=== PATIENT | female | born 1945 | race Caucasian/White ===

== ENCOUNTER 2019-11-10 10:44 | Emergency (ER) | payer MEDICARE, OTHER ==
[~2019-11-10] VITALS: Ht 162.5 cm; Wt 45.9 kg
[2019-11-10] MEDS ORDERED: ACETAMINOPHEN 325 MG TABLET PO ONE (11:15)
[2019-11-10] MEDS ORDERED: ASPIRIN 325 MG (5 GR) TABLET PO ONE (11:15)
[2019-11-10 11:22] LABS: WHITE BLOOD COUNT 18.4 10^3/uL (4.3-11.0)
[2019-11-10 11:23] LABS: BASOPHILS % (AUTO) 0 % (0-10); EOSINOPHILS # (AUTO) 0.1 10^3/uL (0.0-0.3); EOSINOPHILS % (AUTO) 1 % (0-10); HEMATOCRIT 39 % (35-52); HEMOGLOBIN 12.4 G/DL (11.5-16.0); LYMPHOCYTES # (AUTO) 1.9 X 10^3 (1.0-4.0); LYMPHOCYTES % (AUTO) 10 % (12-44); MEAN CORPUSCULAR HEMOGLOBIN 29 PG (25-34); MEAN CORPUSCULAR HGB CONC 32 G/DL (32-36); MEAN CORPUSCULAR VOLUME 92 FL (80-99); MEAN PLATELET VOLUME 10.3 FL (7.4-10.4); MONOCYTES # (AUTO) 1.4 X 10^3 (0.0-1.0); MONOCYTES % (AUTO) 8 % (0-12); NEUTROPHILS # (AUTO) 14.8 X 10^3 (1.8-7.8); NEUTROPHILS % (AUTO) 91 % (42-75); PLATELET COUNT 424 10^3/uL (130-400); RED CELL DISTRIBUTION WIDTH 13.2 % (10.0-14.5)
[2019-11-10] MEDS ORDERED: EPINEPHrine INJECTION 1 MG/ML AMP ONE (11:24)
[2019-11-10] MEDS ORDERED: DEXAMETHASONE 10 MG/ML (DECADRON) 1 ML VIAL ONE (11:26)
[2019-11-10 11:31] LABS: PROTHROMBIN TIME PATIENT 13.3 SEC (12.2-14.7)
[2019-11-10 12:01] LABS: CHLORIDE 100 MMOL/L (98-107); POTASSIUM 3.7 MMOL/L (3.6-5.0); SODIUM 141 MMOL/L (135-145)
[2019-11-10 12:02] LABS: ALANINE AMINOTRANSFERASE 12 U/L (0-55); ALBUMIN 4.1 GM/DL (3.2-4.5); ALKALINE PHOSPHATASE 97 U/L (40-136); BILIRUBIN,TOTAL 0.2 MG/DL (0.1-1.0); BUN/CREATININE RATIO 34; CALCIUM 9.6 MG/DL (8.5-10.1); CARBON DIOXIDE 28 MMOL/L (21-32); CREATININE SERUM 0.38 MG/DL (0.60-1.30); GFR ESTIMATED > 60; GLUCOSE 112 MG/DL (70-105); TOTAL PROTEIN 7.3 GM/DL (6.4-8.2)
[2019-11-10] MEDS ORDERED: HOLD METFORMIN - RECEIVED CONTRAST 20 ML VIAL IV SCH (12:15)
[2019-11-10] MEDS ORDERED: NS 100 ML (IVPB) BAG IV ONE (12:15)
[2019-11-10] MEDS ORDERED: CATHETER FLUSH 10 ML SYR IV PRN (12:15)
[2019-11-10] MEDS ORDERED: IOHEXOL 350 MG/ML 150 ML (OMNIPAQUE 350) VIAL IV ONE (12:15)
[2019-11-10 12:18] LABS: BAND NEUTROPHILS 2 %; BASOPHILS % (MANUAL) 0 %; EOSINOPHILS % (MANUAL) 2 %; LYMPHOCYTES % (MANUAL) 12 %; MONOCYTES % (MANUAL) 9 %; NEUTROPHILS % (MANUAL) 75 %; RBC MORPH NORMAL
--- NOTE | 2019-11-10 12:46 | Diagnostic Imaging Report ---
PROCEDURE: CT angiography of the chest with contrast. TECHNIQUE: Multiple contiguous axial images were obtained through the chest after uneventful bolus administration of intravenous contrast. 3D reconstructed CTA MIP acquisitions were also performed. Auto Exposure Controls were utilized during the CT exam to meet ALARA standards for radiation dose reduction. INDICATION: Chest pain and shortness of breath. COMPARISON: No prior studies are available for comparison. FINDINGS: Evaluation of the pulmonary arterial system is without evidence of thromboembolism. No filling defects are seen within central, lobar, or segmental branches. Thoracic aorta is normal in caliber. No dissection is seen. No pericardial or pleural fluid is identified. Significant emphysematous changes in both lungs are noted. There is an area of parenchymal consolidation in the right middle lobe suggestive of pneumonia. No other parenchymal infiltrates or masses are seen. The upper abdomen is unremarkable. IMPRESSION: 1. No evidence of pulmonary embolism or thoracic aortic dissection. 2. Right middle lobe consolidation suggestive of pneumonia. Follow-up after course of therapy is recommended to confirm clearing. Dictated by: Dictated on workstation # [id number]
[2019-11-10] MEDS ORDERED: fentaNYL INJECTION 100 MCG/2 ML AMP IVP PRN (14:00)
[2019-11-10] MEDS ORDERED: LEVOFLOXACIN 750 MG/150 ML IV 150 ML IV ONE (14:00)
--- NOTE | 2019-11-10 14:39 | ED Chest Pain ---
General Chief Complaint: Chest Pain Stated Complaint: CHEST PAIN Nursing Triage Note: Patient reports she has COPD, states she had sudden onset of right chest pain and shortness of breath just after a breathing treatment this morning. Nursing Sepsis Screen: Possible Severe Sepsis Risk History of Present Illness Date Seen by Provider: Nov 10, 2019 Time Seen by Provider: 11:15 Initial Comments The patient is a 74-year-old female with a history of severe COPD with chronic respiratory failure on 2 L of nasal cannula oxygen as needed at nighttime. She presents for evaluation of sudden onset of sharp pleuritic right inferior chest discomfort which is rather severe, all with onset about 1.5 hours prior to arrival. Patient states she awoke in her normal state of health and did not notice any worsening of her chronic productive cough. Discomfort is described as sharp and stabbing and nonradiating and without exacerbating factors aside from deep breathing. Associated nausea. Associated mild shortness of breath and the patient is noted to be on 3 L of oxygen to maintain saturations here. No assoc iated fevers, vomiting, flank pain, back pain, abdominal pain, dysuria or hematuria, changes in bowel habits. No recent immobilization, hemoptysis, calf pain or swelling, personal or family history of venous thrombolic disease, systemic steroid use recently although the patient does take an inhaled steroid at baseline for control of her COPD. Allergies and Home Medications Allergies Coded Allergies: No Known Drug Allergies (Unverified , 11/10/19) Patient Home Medication List Home Medication List Reviewed: Yes Review of Systems Review of Systems Constitutional: see HPI All Other Systems Reviewed Negative Unless Noted: Yes (Negative excepted noted.) Past Sswxvsk-Amqfew-Svgaok Hx Past Med/Social Hx: Reviewed Nursing Past Med/Soc Hx Patient Social History Recent Foreign Travel: No Contact w/Someone Who Travel: No Recent Infectious Disease Expo: No Family Medical History Reviewed Nursing Family Hx Physical Exam Vital Signs Vital Signs - First Documented 11/10/19 10:49 Temp 37.4 Pulse 113 Resp 29 B/P (MAP) 161/112 (128) Pulse Ox 96 O2 Delivery Room Air Capillary Refill : Less Than 3 Seconds Height, Weight, BMI Height: '" Weight: lbs. oz. kg; 17.00 BMI Method: General Appearance: No Apparent Distress Other comments This is a 74-year-old female appearing nontoxic and in no acute distress. Head is normocephalic and atraumatic. Neck is supple and nontender. Oropharynx is moist. Lungs are clear to auscultation in all stations. There is normal S1 and S2 without rubs or gallops and capillary refill is appropriate, less than 2 seconds globally. Abdomen is soft, nontender and nondistended. Skin is warm and dry without cyanosis, clubbing or edema. Psychiatrically, the patient demonstrates appropriate mood and affect and is alert. Bilateral lower extremities are neurovascularly intact distally and there is no calf or BLE pain or swelling and no erythema or other acute abnormality noted to the legs. Progress/Results/Core Measures Results/Orders Lab Results Laboratory Tests Test 11/10/19 11:05 Range/Units White Blood Count 18.4 H 4.3-11.0 10^3/uL Red Blood Count 4.28 L 4.35-5.85 10^6/uL Hemoglobin 12.4 11.5-16.0 G/DL Hematocrit 39 35-52 % Mean Corpuscular Volume 92 80-99 FL Mean Corpuscular Hemoglobin 29 25-34 PG Mean Corpuscular Hemoglobin Concent 32 32-36 G/DL Red Cell Distribution Width 13.2 10.0-14.5 % Platelet Count 424 H 130-400 10^3/uL Mean Platelet Volume 10.3 7.4-10.4 FL Neutrophils (%) (Auto) 91 H 42-75 % Lymphocytes (%) (Auto) 10 L 12-44 % Monocytes (%) (Auto) 8 0-12 % Eosinophils (%) (Auto) 1 0-10 % Basophils (%) (Auto) 0 0-10 % Neutrophils # (Auto) 14.8 H 1.8-7.8 X 10^3 Lymphocytes # (Auto) 1.9 1.0-4.0 X 10^3 Monocytes # (Auto) 1.4 H 0.0-1.0 X 10^3 Eosinophils # (Auto) 0.1 0.0-0.3 10^3/uL Basophils # (Auto) 0.0 0.0-0.1 10^3/uL Neutrophils % (Manual) 75 % Lymphocytes % (Manual) 12 % Monocytes % (Manual) 9 % Eosinophils % (Manual) 2 % Basophils % (Manual) 0 % Band Neutrophils 2 % Blood Morphology Comment NORMAL Prothrombin Time 13.3 12.2-14.7 SEC INR Comment 1.0 0.8-1.4 Activated Partial Thromboplast Time 29 24-35 SEC Sodium Level 141 135-145 MMOL/L Potassium Level 3.7 3.6-5.0 MMOL/L Chloride Level 100 98-107 MMOL/L Carbon Dioxide Level 28 21-32 MMOL/L Anion Gap 13 5-14 MMOL/L Blood Urea Nitrogen 13 7-18 MG/DL Creatinine 0.38 L 0.60-1.30 MG/DL Estimat Glomerular Filtration Rate > 60 BUN/Creatinine Ratio 34 Glucose Level 112 H 70-105 MG/DL Calcium Level 9.6 8.5-10.1 MG/DL Corrected Calcium 9.5 8.5-10.1 MG/DL Total Bilirubin 0.2 0.1-1.0 MG/DL Aspartate Amino Transf (AST/SGOT) 19 5-34 U/L Alanine Aminotransferase (ALT/SGPT) 12 0-55 U/L Alkaline Phosphatase 97 40-136 U/L Troponin I < 0.30 <0.30 NG/ML Pro-B-Type Natriuretic Peptide 452.4 H <75.0 PG/ML Total Protein 7.3 6.4-8.2 GM/DL Albumin 4.1 3.2-4.5 GM/DL My Orders Orders - SHANNON TRACY MD Cbc With Automated Diff (11/10/19 11:04) Comprehensive Metabolic Panel (11/10/19 11:04) Troponin I Fs (11/10/19 11:04) Ekg Tracing (11/10/19 11:04) Probnp Fs (11/10/19 11:04) Protime With Inr (11/10/19 11:04) Partial Thromboplastin Time (11/10/19 11:04) Ct Angio Chest W (11/10/19 11:04) Aspirin Tablet (Aspirin Tablet) (11/10/19 11:15) Tramadol Tablet (Ultram Tablet) (11/10/19 11:15) Acetaminophen Tablet/Caplet (Tylenol T (11/10/19 11:15) Manual Differential (11/10/19 11:05) Epinephrine 1 Mg Injection (Adrenalin I (11/10/19 11:24) Dexamethasone Injection (Decadron Inject (11/10/19 11:26) Iohexol Injection (Omnipaque 350 Mg/Ml 1 (11/10/19 12:15) Received Contrast (Hold Metformin- Contr (11/10/19 12:15) Sodium Chloride Flush (Catheter Flush Sy (11/10/19 12:15) Ns (Ivpb) (Sodium Chloride 0.9% Ivpb Bag (11/10/19 12:15) Fentanyl Injection (Sublimaze Injection (11/10/19 14:00) Levofloxacin 750 Mg/150 Ml Iv (Levaquin (11/10/19 14:00) Methylprednisolone Sod Succ (Solu-Medrol (11/10/19 15:45) Arterial Blood Gas (11/10/19 15:39) Medications Given in ED Current Medications Medications Dose Ordered Sig/Vinicio Route Start Time Stop Time Status Last Admin Dose Admin Acetaminophen 975 mg ONCE ONCE PO 11/10/19 11:15 11/10/19 11:16 DC 11/10/19 13:19 975 MG Aspirin 325 mg ONCE ONCE PO 11/10/19 11:15 11/10/19 11:16 DC 11/10/19 13:19 325 MG Iohexol 125 ml ONCE ONCE IV 11/10/19 12:15 11/10/19 12:19 DC 11/10/19 12:25 125 ML Levofloxacin/ Dextrose 150 ml @ 100 mls/hr ONCE ONCE IV 11/10/19 14:00 11/10/19 15:29 DC 11/10/19 14:11 100 MLS/HR Sodium Chloride 10 ml NEEDED PRN IV 11/10/19 12:15 11/10/19 12:25 10 ML Sodium Chloride 100 ml ONCE ONCE IV 11/10/19 12:15 11/10/19 12:19 DC 11/10/19 12:25 80 ML Tramadol HCl 50 mg ONCE ONCE PO 11/10/19 11:15 11/10/19 11:16 DC 11/10/19 13:19 50 MG Vital Signs/I&O 11/10/19 10:49 Temp 37.4 Pulse 113 Resp 29 B/P (MAP) 161/112 (128) Pulse Ox 96 O2 Delivery Room Air Blood Pressure Mean: 128 POS Progress Progress Note : Time: 13:00 Progress Note Workup as above is remarkable for leukocytosis with evidence of likely community-acquired pneumonia by CT angiography. No evidence of clot or other acute cardiopulmonary abnormality. Given severe COPD with superimposed likely community acquired pneumonia, we'll bring in for further care to include ACS rule out, observation on telemetry, antibiotics and further care. Patient accepted to [facility] for inpatient admission by Dr. Brar. EKG : Comment Sinus rhythm, rate 105, no acute ST elevation or depression, OK 125, QRS 84, QTC 47, EP interpretation. Diagnostic Imaging Comments CT ANGIO CHEST W PROCEDURE: CT angiography of the chest with contrast. TECHNIQUE: Multiple contiguous axial images were obtained through the chest after uneventful bolus administration of intravenous contrast. 3D reconstructed CTA MIP acquisitions were also performed. Auto Exposure Controls were utilized during the CT exam to meet ALARA standards for radiation dose reduction. INDICATION: Chest pain and shortness of breath. COMPARISON: No prior studies are available for comparison. FINDINGS: Evaluation of the pulmonary arterial system is without evidence of thromboembolism. No filling defects are seen within central, lobar, or segmental branches. Thoracic aorta is normal in caliber. No dissection is seen. No pericardial or pleural fluid is identified. Significant emphysematous changes in both lungs are noted. There is an area of parenchymal consolidation in the right middle lobe suggestive of pneumonia. No other parenchymal infiltrates or masses are seen. The upper abdomen is unremarkable. IMPRESSION: 1. No evidence of pulmonary embolism or thoracic aortic dissection. 2. Right middle lobe consolidation suggestive of pneumonia. Follow-up after course of therapy is recommended to confirm clearing. Dictated on workstation # [id number] Departure Impression Primary Impression: Community acquired bacterial pneumonia Additional Impression: Other chest pain Disposition: XFER SHT-TRM HOSP Condition: Stable Transfer Transfer Reason: Diversion Time Spoke to Accepting Phy: 15:00 Transfer Progress Notes [place] completely full. Transferring to [facility]. Transfer Facility: [facility] Method of Transfer: EMS Departure-Patient Inst. Referrals: SELFMANOHAR MD (PCP/Family) Primary Care Physician SHANNON TRACY MD Nov 10, 2019 14:39 POS
[2019-11-10] MEDS ORDERED: methylPREDNISolone 40 MG/ML (Solu-MEDROL) VIAL IV ONE (15:45)
[2019-11-10] MEDS ORDERED: ONDANSETRON 4 MG/2 ML (SDV) Z0FRAN ONE (16:31)
[2019-11-10 16:36] LABS: ALLENS TEST YES-POS; INSPIRED O2 3 L; PATIENT TEMP 98.1; VENTILATOR NO
[2019-11-10 16:37] LABS: ABG BASE EXCESS 11.5 MMOL/L (-2.5-2.5); ABG OXYGEN SATURATION 98 % (94-100); ABG PCO2 54 MMHG (35-45); ABG PH 7.45 (7.37-7.43); ABG PO2 104 MMHG (79-93); ABG TCO2 39.2 MMOL/L (21.0-31.0)
--- NOTE | 2019-11-10 18:02 | NUR ---
Patients ride arrived at this time. Patient's last set of vital signs taken at this time.
--- NOTE | 2019-11-10 18:04 | NUR ---
Patients IV was secured with coban wrap.
--- NOTE | 2019-11-10 18:06 | NUR ---
Patient's family drove up into ambulance bay. Pt was wheeled to car via wheelchair and assisted into car by JEAN CARLOS Lynch Tech.
[2019-11-10 18:07] VITALS: BP 129/89
[2019-11-13] MEDS ORDERED: BUDE10.2 INH (09:00)
[2019-11-13] MEDS ORDERED: ALBU2.5V4 NEB (09:00)
[2019-11-13] MEDS ORDERED: MONT10TA24 PO (09:00)
[2019-11-13] MEDS ORDERED: GUAI600T43 PO (09:01)
[2019-11-13] MEDS ORDERED: DIPH25CA79 PO (09:03)
[2019-11-13] MEDS ORDERED: CETI10TA20 PO (09:03)
== END 2019-11-10 18:07 | disposition short-term general hospital (02) ==
LOC: ER FS 10:48
DX: J15.9 Unspecified bacterial pneumonia (principal); R07.89 Other chest pain; J44.0 Chronic obstructive pulmonary disease with (acute) lower respiratory infection; Z99.81 Dependence on supplemental oxygen
CPT/HCPCS: 36415; 71275; 80053; 82805; 83880; 84484; 85007; 85027; 85610; 85730; 93005

== ENCOUNTER → 2019-12-01 | Outpatient (CLI) | payer MEDICARE, OTHER ==
[~2019-12-01] MED LIST: ALBU2.5V4 NEB; BUDE10.2 INH; CETI10TA20 PO; DIPH25CA79 PO; GUAI600T43 PO; IPRA3AMP31 INH; MONT10TA24 PO; PANT20TA3 PO; RT-ALBUINH IH; [UNRECOGNIZED DRUG - OTHER]; shower chair
--- NOTE | 2019-12-01 15:56 | Diagnostic Imaging Report ---
INDICATION: Pneumonia. TIME OF EXAM: 3:48 PM COMPARISON: Correlation is made with prior chest from 11/15/2019. FINDINGS: Lungs appear to be clear. Lungs are hyperinflated consistent with COPD. No effusion or pneumothorax is detected. IMPRESSION: COPD. No acute abnormality is detected. Dictated by: Dictated on workstation # [id number]
== END ==
LOC: RAD FS 15:41
PROVIDERS: ATTEND Family Medicine
DX: J44.1 Chronic obstructive pulmonary disease with (acute) exacerbation (principal); J18.9 Pneumonia, unspecified organism
CPT/HCPCS: 71046

== ENCOUNTER → 2020-09-06 | Outpatient (CLI) | payer MEDICARE, OTHER ==
[~2020-09-06] MED LIST changes: -CETI10TA20 PO; +CETI10TA49 PO; -MONT10TA24 PO; +MONT10TA26 PO; +PANT20TA18 PO; -PANT20TA3 PO; +RT-ALBUTEROL SULF 2.5 MG/3 ML PRE-MIX VIAL INH ONE
== END ==
LOC: RT 13:00
PROVIDERS: ATTEND Nurse Practitioner Family
DX: J43.1 Panlobular emphysema (principal)
CPT/HCPCS: 94060; 94726; 94729

== ENCOUNTER → 2020-11-11 | Outpatient (CLI) | payer MEDICARE, OTHER ==
[~2020-11-11] MED LIST changes: -MONT10TA26 PO; +MONT10TA97 PO; -RT-ALBUTEROL SULF 2.5 MG/3 ML PRE-MIX VIAL INH ONE
--- NOTE | 2020-11-11 15:10 | Diagnostic Imaging Report ---
EXAMINATION: CT Chest without contrast (lung screening). TECHNIQUE: Multiple contiguous axial images were obtained through the chest without the use of intravenous contrast according to lung cancer screening protocol. All CT scans use one or more of the following dose optimizing techniques: automated exposure control, MA and/or KvP adjustment based on a patient size and exam type, or iterative reconstruction. HISTORY: 56 pack year history of smoking. COMPARISON: None available. FINDINGS: There is no edema or pneumonia. No pleural effusion. No pneumothorax. There is a 4 mm right upper lobe nodule (series 2, image 35). Lungs are severely emphysematous. There is no axillary or supraclavicular lymphadenopathy. There is no mediastinal lymphadenopathy. Heart size is normal. There are moderate coronary artery calcifications. No pericardial effusion. Aorta is normal in caliber. Limited views of the upper abdomen are unremarkable. There are no suspicious osseous lesions. IMPRESSION: 1. No suspicious pulmonary nodules. LUNG-RADS CATEGORY: 2 MODIFIER: None. Dictated by: Dictated on workstation # [id number]
== END ==
LOC: RAD 12:33
PROVIDERS: ATTEND Nurse Practitioner Family
DX: Z12.2 Encounter for screening for malignant neoplasm of respiratory organs (principal); Z87.891 Personal history of nicotine dependence

== ENCOUNTER → 2021-01-04 | Outpatient (CLI) | payer MEDICARE, OTHER ==
[~2021-01-04] VITALS: Ht 162 cm; Wt 45.0 kg
[~2021-01-04] MED LIST changes: +CATHETER FLUSH 10 ML SYR IV PRN; +REGADENOSON 0.4 MG/5 ML SYR (LEXISCAN) IV ONE
[2021-01-04 09:27] VITALS: BP 143/79
--- NOTE | 2021-01-06 10:36 | STRESS TEST ---
DATE OF SERVICE: 01/04/2021 RESTING AND POST REGADENOSON TECHNETIUM-99M TETROFOSMIN SPECT CT IMAGING. ORDERING PHYSICIAN: Dr. Castillo. CLINICAL DIAGNOSIS: Chest discomfort. Baseline images were carried out after injection of 10.57 mCi of technetium-99m Tetrofosmin. This was followed by 0.4 mg Regadenoson and 31.9 mCi of technetium-99m Tetrofosmin for stress imaging. The electrocardiogram showed sinus rhythm at baseline. It did not change significantly with the Regadenoson infusion. The patient noted some shortness of breath following Regadenoson infusion, which improved after she took her inhaler. Review of images at rest and following stress does not indicate any significant perfusion defects consistent with myocardial ischemia or infarction. Gated images show normal global left ventricular systolic function with normal regional wall motion. Left ventricular ejection fraction is calculated to be 61%. Left ventricular end diastolic volume is 56 mL. TID is absent (1.03). CONCLUSIONS: 1. No evidence of any significant myocardial ischemia or infarction on this study. 2. Normal regional wall motion. 3. Normal global left ventricular systolic function with a calculated ejection fraction of 61%. Job ID: [id number] DocumentID: [id number] Dictated Date: 01/06/2021 09:59:48 Form Raiser Date: 01/06/2021 10:36:34 Dictated By: FLAKITA CASTILLO MD, MA, FACP, FACC, MTDD
== END ==
LOC: CARD 08:30
PROVIDERS: ATTEND Internal Medicine Cardiovascular Disease
DX: R00.2 Palpitations (principal); R09.89 Other specified symptoms and signs involving the circulatory and respiratory systems
CPT/HCPCS: 78452; 93017; 93225; 93226; A9502

== ENCOUNTER → 2021-09-05 | Outpatient (CLI) | payer MEDICARE, OTHER ==
[~2021-09-05] MED LIST changes: -CATHETER FLUSH 10 ML SYR IV PRN; +MONT10TA32 PO; -MONT10TA97 PO; -REGADENOSON 0.4 MG/5 ML SYR (LEXISCAN) IV ONE
== END ==
LOC: CARD 14:30
PROVIDERS: ATTEND Internal Medicine Cardiovascular Disease
DX: I34.0 Nonrheumatic mitral (valve) insufficiency (principal); I51.7 Cardiomegaly; I27.21 Secondary pulmonary arterial hypertension
CPT/HCPCS: 93306

== ENCOUNTER → 2022-01-25 | Outpatient (CLI) | payer MEDICARE, OTHER ==
[~2022-01-25] MED LIST changes: +MONT-40 PO; -MONT10TA32 PO
--- NOTE | 2022-01-25 18:02 | Diagnostic Imaging Report ---
CT Lung Screening INDICATION: Screening for lung cancer, 56 pack year history of smoking, quit smoking 5-6 years prior. TECHNIQUE: Noncontrast, low-dose CT imaging performed according to the lung cancer screening protocol. Auto Exposure Controls were utilize during the CT exam to meet ALARA standards for radiation dose reduction. COMPARISON: November 11, 2020 and November 10, 2019. FINDINGS: No pathologically enlarged lymph nodes within the chest. Moderate scattered vascular calcifications within the thoracic aorta and its branch vessels, including within the coronary arteries. No aneurysmal dilatation of the thoracic aorta. The heart is within normal limits in size. No significant pericardial effusion. No pleural effusion. The trachea is patent. Advanced background emphysematous changes are again identified with associated biapical pleural-parenchymal scarring. A new irregular 1.6 x 1.0 x 0.7 cm pulmonary nodule is identified within the left upper lobe, best seen on series 2, image 82. Calcified granuloma within the left lower lobe. 0.9 x 0.6 x 0.7 cm mildly irregular sub-solid right upper lobe pulmonary nodule, series 2, image 46. Previously noted 4 mm right upper lobe pulmonary nodule has decreased in size since the prior examination, now measuring 2 mm. New 0.9 x 0.6 x 0.5 cm right upper lobe pulmonary nodule, series 2, image 80. Calcified granuloma within the right upper lobe. Vascular calcifications versus nonobstructing calculus within the central left kidney. The visualized upper abdomen is otherwise unremarkable. Scattered osseous degenerative changes without acute osseous abnormality. IMPRESSION: 1. New irregular solid 1.1 cm left upper lobe pulmonary nodule. CT-guided biopsy is recommended. 2. Additional new right-sided pulmonary nodules, as described above, measuring up to just below 0.8 cm in mean diameter. Follow-up CT of the chest is recommended in three months to ensure stability depending upon the biopsy results for the new left upper lobe pulmonary nodule. 3. Advanced background emphysematous changes. LUNG-RADS CATEGORY: 4B: Very suspicious MODIFIER: S: Advanced background emphysematous changes. Follow-up: CT-guided biopsy of the new irregular 1.1 cm left upper lobe pulmonary nodule is recommended. Additionally, a follow-up CT of the chest is recommended in three months to reevaluate the new right-sided pulmonary nodules. Office is closed. Report was faxed to the office of Storm Carrasco APRN at 5:50 p.m. Dictated by: Dictated on workstation # [id number]
== END ==
LOC: RAD 16:45
PROVIDERS: ATTEND Nurse Practitioner Family
DX: Z12.2 Encounter for screening for malignant neoplasm of respiratory organs (principal); J43.1 Panlobular emphysema; R91.8 Other nonspecific abnormal finding of lung field; F17.210 Nicotine dependence, cigarettes, uncomplicated
CPT/HCPCS: 71271

== ENCOUNTER 2022-08-01 15:57 | Inpatient (IN) | payer MEDICARE, OTHER ==
[~2022-08-01] VITALS: Ht 162.6 cm; Wt 38.6 kg
--- NOTE | 2022-08-01 16:08 | ED Respiratory ---
General Chief Complaint: Respiratory Problems Stated Complaint: SOA,CONGESTION History of Present Illness Date Seen by Provider: Aug 01, 2022 Time Seen by Provider: 16:08 Initial Comments 77-year-old female with PMH of CHF/COPD is here with complaints of increasing shortness of breath over the past 1 week. Patient saw her PCP about 5 days ago and was given a steroid injection in the clinic. Patient has been using her inhaler at home without much improvement. Patient has associated productive cough and chest tightness. Denies fever, sore throat, abdominal pain, nausea and vomiting, diarrhea, sick contacts. Patient is vaccinated for COVID. Patient is on 2 L of oxygen at home at baseline. Pt has not taken Lasix for the past 10 days, she states she only takes it if she has ankle edema. Allergies and Home Medications Allergies Coded Allergies: No Known Drug Allergies (Unverified , 11/10/19) Patient Home Medication List Home Medication List Reviewed: Yes Albuterol Sulfate (Albuterol Sulfate) 2.5 Mg/3 Ml Vial.neb, 2.5 MG NEB Q6H PRN for SHORTNESS OF BREATH, (Reported) Entered as Reported by: AMADO DIAS on 11/13/19 0900 Albuterol Sulfate (Proair Hfa) 1 Puff Puff, 2 PUFF IH Q4H PRN for WHEEZING Prescribed by: DELANO PRITCHETT on 11/18/19 1151 Budesonide/Formoterol Fumarate (Symbicort 160-4.5 Mcg Inhaler) 10.2 Gm Hfa.aer.ad, 2 PUFF INH BID, (Reported) Entered as Reported by: AMADO DIAS on 11/13/19 0900 Cetirizine HCl (Zyrtec) 10 Mg Tablet, 10 MG PO DAILY PRN for ALLERGIES, (Reported) Entered as Reported by: AMADO DIAS on 11/13/19 0903 Guaifenesin (Mucinex) 600 Mg Tab.er.12h, 600 MG PO BID, (Reported) Entered as Reported by: AMADO DIAS on 11/13/19 0901 Ipratropium/Albuterol Sulfate (Iprat-Albut 0.5-3(2.5) mg/3 ml) 3 Ml Ampul.neb, 3 ML INH Q4H PRN for WHEEZING Prescribed by: DELANO PRITCHETT on 11/18/19 1151 Montelukast Sodium (Montelukast Sodium) 10 Mg Tablet, 10 MG PO HS, (Reported) Entered as Reported by: AMADO DIAS on 11/13/19 0900 Pantoprazole Sodium (Pantoprazole Sodium) 20 Mg Tablet.dr, 20 MG PO DAILY Prescribed by: DELANO PRITCHETT on 11/18/19 1151 [Hip kit] , EACH, (DME) Prescribed by: DELANO PRITCHETT on 11/18/19 1212 [shower chair] , (DME) Prescribed by: DELANO PRITCHETT on 11/18/19 1212 Review of Systems Review of Systems Constitutional: no symptoms reported EENTM: no symptoms reported Respiratory: cough, phlegm, short of breath, wheezing Cardiovascular: no symptoms reported Gastrointestinal: no symptoms reported Genitourinary: no symptoms reported Musculoskeletal: no symptoms reported Skin: no symptoms reported Psychiatric/Neurological: No Symptoms Reported Hematologic/Lymphatic: No Symptoms Reported Immunological/Allergic: no symptoms reported Past Jqmgpjq-Davyeh-Yuysab Hx Seasonal Allergies Seasonal Allergies: No Past Medical History Surgeries: Yes Appendectomy, Gallbladder, Hysterectomy, Orthopedic Respiratory: Yes COPD Cardiac: No Hypertension Neurological: No Genitourinary: No Gastrointestinal: No Musculoskeletal: No Endocrine: No HEENT: No Cancer: No Psychosocial: No Integumentary: No Physical Exam Vital Signs - First Documented 08/01/22 17:26 FiO2 40 Capillary Refill : Height: '" Weight: lbs. oz. kg; 17.14 BMI Method: General Appearance: moderate distress HEENT: PERRL/EOMI, normal ENT inspection Neck: non-tender, full range of motion, supple Respiratory: crackles, rales, rhonchi, wheezing, expiration Cardiovascular: regular rate, rhythm, tachycardia (intermittently) Gastrointestinal: normal bowel sounds, non tender, soft Extremities: normal range of motion Neurologic/Psychiatric: alert, normal mood/affect, oriented x 3 Skin: normal color Focused Exam Lactate Level 08/01/22 16:15: Lactic Acid Level 2.11*H Lactic Acid Level Laboratory Tests Test 08/01/22 16:15 Lactic Acid Level 2.11 MMOL/L (0.50-2.00) *H Progress/Results/Core Measures Suspected Sepsis SIRS Temperature: Pulse: Respiratory Rate: Laboratory Tests 08/01/22 16:15: White Blood Count 11.2H Blood Pressure / Mean: 08/01/22 16:15: Lactic Acid Level 2.11*H Laboratory Tests 08/01/22 16:15: Creatinine 0.54L, INR Comment 0.9, Platelet Count 411H, Total Bilirubin 0.3 Results/Orders Lab Results Laboratory Tests Test 08/01/22 16:15 08/01/22 17:15 Range/Units White Blood Count 11.2 H 4.3-11.0 10^3/uL Red Blood Count 4.60 3.80-5.11 10^6/uL Hemoglobin 13.5 11.5-16.0 g/dL Hematocrit 42 35-52 % Mean Corpuscular Volume 90 80-99 fL Mean Corpuscular Hemoglobin 29 25-34 pg Mean Corpuscular Hemoglobin Concent 33 32-36 g/dL Red Cell Distribution Width 13.0 10.0-14.5 % Platelet Count 411 H 130-400 10^3/uL Mean Platelet Volume 10.2 9.0-12.2 fL Immature Granulocyte % (Auto) 0 % Neutrophils (%) (Auto) 70 42-75 % Lymphocytes (%) (Auto) 20 12-44 % Monocytes (%) (Auto) 8 0-12 % Eosinophils (%) (Auto) 2 0-10 % Basophils (%) (Auto) 0 0-10 % Neutrophils # (Auto) 7.8 1.8-7.8 10^3/uL Lymphocytes # (Auto) 2.2 1.0-4.0 10^3/uL Monocytes # (Auto) 0.9 0.0-1.0 10^3/uL Eosinophils # (Auto) 0.2 0.0-0.3 10^3/uL Basophils # (Auto) 0.0 0.0-0.1 10^3/uL Immature Granulocyte # (Auto) 0.0 0.0-0.1 10^3/uL Prothrombin Time 12.8 12.2-14.7 SEC INR Comment 0.9 0.8-1.4 Activated Partial Thromboplast Time 28 24-35 SEC D-Dimer 0.32 0.00-0.49 UG/ML Sodium Level 138 135-145 MMOL/L Potassium Level 4.9 3.6-5.0 MMOL/L Chloride Level 95 L 98-107 MMOL/L Carbon Dioxide Level 30 21-32 MMOL/L Anion Gap 13 5-14 MMOL/L Blood Urea Nitrogen 23 H 7-18 MG/DL Creatinine 0.54 L 0.60-1.30 MG/DL Estimat Glomerular Filtration Rate 95 BUN/Creatinine Ratio 43 Glucose Level 160 H 70-105 MG/DL Lactic Acid Level 2.11 *H 0.50-2.00 MMOL/L Calcium Level 9.9 8.5-10.1 MG/DL Corrected Calcium 8.5-10.1 MG/DL Magnesium Level 1.9 1.6-2.4 MG/DL Total Bilirubin 0.3 0.1-1.0 MG/DL Aspartate Amino Transf (AST/SGOT) 25 5-34 U/L Alanine Aminotransferase (ALT/SGPT) 22 0-55 U/L Alkaline Phosphatase 126 40-136 U/L Troponin I < 0.30 <0.30 NG/ML Total Protein 7.6 6.4-8.2 GM/DL Albumin 4.6 H 3.2-4.5 GM/DL Influenza Type A (RT-PCR) Not Detected Not Detecte Influenza Type B (RT-PCR) Not Detected Not Detecte SARS-CoV-2 RNA (RT-PCR) Not Detected Not Detecte Urine Color YELLOW Urine Clarity SL CLOUDY Urine pH 6.0 5-9 Urine Specific [place] 1.025 H 1.016-1.022 Urine Protein NEGATIVE NEGATIVE Urine Glucose (UA) NEGATIVE NEGATIVE Urine Ketones NEGATIVE NEGATIVE Urine Nitrite NEGATIVE NEGATIVE Urine Bilirubin NEGATIVE NEGATIVE Urine Urobilinogen 0.2 < = 1.0 MG/DL Urine Leukocyte Esterase NEGATIVE NEGATIVE Urine RBC (Auto) NEGATIVE NEGATIVE Urine RBC NONE /HPF Urine WBC 0-2 /HPF Urine Squamous Epithelial Cells RARE /HPF Urine Crystals NONE /LPF Urine Bacteria NEGATIVE /HPF Urine Casts PRESENT /LPF Urine Hyaline Casts 10-25 H /LPF Urine Granular Casts 0-2 H /LPF Urine Mucus NEGATIVE /LPF Urine Culture Indicated NO Urine Opiates Screen NEGATIVE NEGATIVE Urine Oxycodone Screen NEGATIVE NEGATIVE Urine Methadone Screen NEGATIVE NEGATIVE Urine Propoxyphene Screen NEGATIVE NEGATIVE Urine Barbiturates Screen NEGATIVE NEGATIVE Ur Tricyclic Antidepressants Screen NEGATIVE NEGATIVE Urine Phencyclidine Screen NEGATIVE NEGATIVE Urine Amphetamines Screen NEGATIVE NEGATIVE Urine Methamphetamines Screen NEGATIVE NEGATIVE Urine Benzodiazepines Screen NEGATIVE NEGATIVE Urine Cocaine Screen NEGATIVE NEGATIVE Urine Cannabinoids Screen NEGATIVE NEGATIVE My Orders Orders - LA NENA,SHANNAN L MD Covid 19 Inhouse Test (08/01/22 16:08) Influenza A And B By Pcr (08/01/22 16:08) Cbc With Automated Diff (08/01/22 16:14) Comprehensive Metabolic Panel (08/01/22 16:14) Chest 1 View Ap/Pa Only (08/01/22 16:14) Fibrin Degradation Products (08/01/22 16:14) Magnesium (08/01/22 16:14) O2 (08/01/22 16:14) Ed Iv/Invasive Line Start (08/01/22 16:14) Svn Small Volume Nebulizer (08/01/22 16:14) Methylprednisolone Sod Succ (Solu-Medrol (08/01/22 16:15) Drug Screen Stat (Urine) (08/01/22 16:15) Protime With Inr (08/01/22 16:15) Partial Thromboplastin Time (08/01/22 16:15) Ua Culture If Indicated (08/01/22 16:15) Troponin I Fs (08/01/22 16:15) Albuterol/Ipra Inhalation Soln (Duoneb I (08/01/22 16:30) Albuterol/Ipra Inhalation Soln (Duoneb I (08/01/22 16:15) Lactic Acid Analyzer (08/01/22 16:18) Furosemide Injection (Lasix Injection) (08/01/22 17:00) Catheter(Urinary) Insert & Ass 03,15 (08/01/22 16:49) Ct Angio Chest W (08/01/22 17:00) Albuterol/Ipra Inhalation Soln (Duoneb I (08/01/22 17:15) Svn Small Volume Nebulizer (08/01/22 17:01) Iohexol Injection (Omnipaque 350 Mg/Ml 1 (08/01/22 17:30) Received Contrast (Hold Metformin- Contr (08/01/22 17:30) Ns (Ivpb) (Sodium Chloride 0.9% Ivpb Bag (08/01/22 17:30) Medications Given in ED Current Medications Medications Dose Ordered Sig/Vinicio Route Start Time Stop Time Status Last Admin Dose Admin Albuterol/ Ipratropium 3 ml ONCE ONCE INH 08/01/22 16:30 08/01/22 16:31 DC 08/01/22 16:20 3 ML Albuterol/ Ipratropium 3 ml ONCE ONCE INH 08/01/22 17:15 08/01/22 17:16 DC 08/01/22 17:19 3 ML Furosemide 20 mg ONCE ONCE IVP 08/01/22 17:00 08/01/22 17:01 DC 08/01/22 16:59 20 MG Iohexol 100 ml ONCE ONCE IV 08/01/22 17:30 08/01/22 17:31 DC 08/01/22 18:15 80 ML Sodium Chloride 100 ml ONCE ONCE IV 08/01/22 17:30 08/01/22 17:31 DC 08/01/22 18:15 100 ML Vital Signs/I&O 08/01/22 08/01/22 08/01/22 08/01/22 16:05 16:05 16:05 17:26 Temp 36.4 Pulse 103 Resp 23 B/P (MAP) 138/61 (86) Pulse Ox 97 99 O2 Delivery Nasal Cannula Nasal Cannula Nasal Cannula NIV Bilevel O2 Flow Rate 2.00 2.00 2.00 FiO2 40 Capillary Refill : Progress Note : Progress Note 1. 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 - Placed on Bipap in ER - DIscussed with hospitalist and will admit to ICU Diagnostic Imaging Diagonstic Imaging: CT Plain Films/CT/US/NM/MRI: chest Comments [facility], [place] NAME: EMMANUEL BROOKS [facility] REC#: [id number] PT STATUS: REG ER : 1945 PHYSICIAN: SHANNAN DEUTSCH MD ADMIT DATE: 08/01/22/ER FS Draft Date of Exam:08/01/22 CT ANGIO CHEST W PROCEDURE: CT angiography of the chest with contrast. TECHNIQUE: Multiple contiguous axial images were obtained through the chest after uneventful bolus administration of intravenous contrast. 3D reconstructed CTA MIP acquisitions were also performed. Auto Exposure Controls were utilized during the CT exam to meet ALARA standards for radiation dose reduction. INDICATION: COPD patient, shortness of air, chest pain. It is compared with chest CT 01/25/2022. FINDINGS: The pulmonary arterial branches well opacified, widely patent. No filling defect. No PE. The thoracic aorta patent, nonaneurysmal and nonacute. There is no pleural or pericardial effusion. Centrilobular emphysema with symmetrical hyperexpansion of the lungs stable. A focal irregular opacity in the left upper lobe anteriorly is partially retracted and decreased in size from the previous and appears more scarlike as opposed to masslike. No adverse interval development. No adenopathy. No chest wall lesion. Visualized upper abdomen appeared nonacute. IMPRESSION: 1. Negative for PE or acute aortic disease. Left upper lobe nodule is decreased in size and appears more linear at follow-up with no new lung mass, adenopathy or adverse interval change. Dictated on workstation # [id number] Dict: 08/01/22 1819 Trans: 08/01/22 1835 [facility] [id number] Interpreted by: JANIE TORIBIO Electronically signed by: Departure Communication (Admissions) Time/Spoke to Admitting Phy: 19:[address] Brar, will transfer to [facility] and admit to ICU Impression Primary Impression: COPD exacerbation Additional Impressions: Flash pulmonary edema CHF exacerbation Qualified Codes: I50.9 - Heart failure, unspecified Disposition: 30 STILL A PATIENT Condition: Improved Admissions Decision to Admit Reason: Admit from ER (General) Decision to Admit/Date: Aug 01, 2022 Time/Decision to Admit Time: 19:00 Transfer Transfer Reason: Exceeds level of care Method of Transfer: EMS Departure-Patient Inst. Referrals: MANOHAR URBAN MD (PCP/Family) Primary Care Physician Patient Instructions: Chronic Obstructive Pulmonary Disease (COPD) (DC), Heart Failure ED SHANNAN DEUTSCH MD Aug 01, 2022 16:08
[2022-08-01] MEDS ORDERED: RT-ALBUTEROL/IPRATROPIUM 3 ML (DUONEB) VIAL ONE (16:15)
[2022-08-01] MEDS ORDERED: RT-IPRATROPIUM (ATROVENT) 0.5MG/2.5ML AMP IH ONE (16:15)
[2022-08-01] MEDS ORDERED: methylPREDNISolone 125 MG (Solu-MEDROL) VIAL IV STA (16:15)
[2022-08-01 16:26] LABS: BASOPHILS % (AUTO) 0 % (0-10); EOSINOPHILS # (AUTO) 0.2 10^3/uL (0.0-0.3); EOSINOPHILS % (AUTO) 2 % (0-10); HEMATOCRIT 42 % (35-52); HEMOGLOBIN 13.5 g/dL (11.5-16.0); LYMPHOCYTES # (AUTO) 2.2 10^3/uL (1.0-4.0); LYMPHOCYTES % (AUTO) 20 % (12-44); MEAN CORPUSCULAR HEMOGLOBIN 29 pg (25-34); MEAN CORPUSCULAR HGB CONC 33 g/dL (32-36); MEAN CORPUSCULAR VOLUME 90 fL (80-99); MEAN PLATELET VOLUME 10.2 fL (9.0-12.2); MONOCYTES # (AUTO) 0.9 10^3/uL (0.0-1.0); MONOCYTES % (AUTO) 8 % (0-12); NEUTROPHILS # (AUTO) 7.8 10^3/uL (1.8-7.8); NEUTROPHILS % (AUTO) 70 % (42-75); PLATELET COUNT 411 10^3/uL (130-400); WHITE BLOOD COUNT 11.2 10^3/uL (4.3-11.0)
[2022-08-01] MEDS ORDERED: RT-ALBUTEROL/IPRATROPIUM 3 ML (DUONEB) VIAL INH ONE ×2 (16:30→17:15)
[2022-08-01] MEDS ORDERED: FUROSEMIDE 40 MG/4 ML INJ (LASIX) IVP ONE (17:00)
[2022-08-01 17:11] LABS: BUN/CREATININE RATIO 43; CARBON DIOXIDE 30 MMOL/L (21-32); CHLORIDE 95 MMOL/L (98-107); CREATININE SERUM 0.54 MG/DL (0.60-1.30); GFR ESTIMATED 95; POTASSIUM 4.9 MMOL/L (3.6-5.0); SODIUM 138 MMOL/L (135-145)
[2022-08-01 17:12] LABS: ALANINE AMINOTRANSFERASE 22 U/L (0-55); ALBUMIN 4.6 GM/DL (3.2-4.5); ALKALINE PHOSPHATASE 126 U/L (40-136); BILIRUBIN,TOTAL 0.3 MG/DL (0.1-1.0); CALCIUM 9.9 MG/DL (8.5-10.1); GLUCOSE 160 MG/DL (70-105); MAGNESIUM 1.9 MG/DL (1.6-2.4); TOTAL PROTEIN 7.6 GM/DL (6.4-8.2)
[2022-08-01] MEDS ORDERED: HOLD METFORMIN - RECEIVED CONTRAST 20 ML VIAL IV SCH (17:30)
[2022-08-01] MEDS ORDERED: IOHEXOL 350 MG/ML 100 ML (OMNIPAQUE 350) VIAL IV ONE (17:30)
[2022-08-01] MEDS ORDERED: NS 100 ML (IVPB) BAG IV ONE (17:30)
[2022-08-01 17:46] LABS: BILIRUBIN,URINE NEGATIVE (NEGATIVE); CLARITY,URINE SL CLOUDY; COLOR,URINE YELLOW; GLUCOSE, URINE (UA) NEGATIVE (NEGATIVE); KETONES,URINE NEGATIVE (NEGATIVE); LEUKOCYTE ESTERASE ,URINE NEGATIVE (NEGATIVE); NITRITE,URINE NEGATIVE (NEGATIVE); PROTEIN,URINE NEGATIVE (NEGATIVE)
[2022-08-01 17:47] LABS: FIBRIN DEGRADATION PRODUCTS 0.32 UG/ML (0.00-0.49); INR 0.9 (0.8-1.4); PROTHROMBIN TIME PATIENT 12.8 SEC (12.2-14.7)
[2022-08-01 17:53] LABS: BACTERIA,URINE NEGATIVE /HPF; GRANULAR CASTS,URINE 0-2 /LPF; SQUAMOUS EPITHELIAL CELL,UR RARE /HPF; WBC,URINE 0-2 /HPF
[2022-08-01 17:56] LABS: AMPHETAMINE SCREEN, URINE NEGATIVE (NEGATIVE); BARBITURATE SCREEN URINE NEGATIVE (NEGATIVE); BENZODIAZEPINES SCREEN URINE NEGATIVE (NEGATIVE); CANNABINOID SCREEN, URINE NEGATIVE (NEGATIVE); COCAINE SCREEN URINE NEGATIVE (NEGATIVE); METHADONE STAT NEGATIVE (NEGATIVE); OPIATE SCREEN URINE NEGATIVE (NEGATIVE); OXYCODONE STAT NEGATIVE (NEGATIVE); PROPOXYPHENE STAT NEGATIVE (NEGATIVE); TRICYCLIC ANTIDEPRESSANTS SCRE NEGATIVE (NEGATIVE)
--- NOTE | 2022-08-01 18:36 | Diagnostic Imaging Report ---
PROCEDURE: CT angiography of the chest with contrast. TECHNIQUE: Multiple contiguous axial images were obtained through the chest after uneventful bolus administration of intravenous contrast. 3D reconstructed CTA MIP acquisitions were also performed. Auto Exposure Controls were utilized during the CT exam to meet ALARA standards for radiation dose reduction. INDICATION: COPD patient, shortness of air, chest pain. It is compared with chest CT 01/25/2022. FINDINGS: The pulmonary arterial branches well opacified, widely patent. No filling defect. No PE. The thoracic aorta patent, nonaneurysmal and nonacute. There is no pleural or pericardial effusion. Centrilobular emphysema with symmetrical hyperexpansion of the lungs stable. A focal irregular opacity in the left upper lobe anteriorly is partially retracted and decreased in size from the previous and appears more scarlike as opposed to masslike. No adverse interval development. No adenopathy. No chest wall lesion. Visualized upper abdomen appeared nonacute. IMPRESSION: 1. Negative for PE or acute aortic disease. Left upper lobe nodule is decreased in size and appears more linear at follow-up with no new lung mass, adenopathy or adverse interval change. Dictated by: Dictated on workstation # [id number]
[2022-08-01] MEDS ORDERED: ONDANSETRON 4 MG (ZOFRAN) ORAL DISSOLVE TAB PO PRN (21:45)
[2022-08-01] MEDS ORDERED: ANTACID SUSP 30 ML UDC (MYLANTA) PO PRN (21:45)
[2022-08-01] MEDS ORDERED: DexMEDEtomidine 250 ML DRIP 250 ML IV SCH (21:45)
[2022-08-01] MEDS ORDERED: NS IV 500 ML 500 ML IV PRN (21:45)
[2022-08-01] MEDS ORDERED: ONDANSETRON 4 MG/2 ML (SDV) Z0FRAN IV PRN (21:45)
[2022-08-01] MEDS ORDERED: BISACODYL 10 MG SUPP (DULCOLAX) PR PRN (21:45)
[2022-08-01] MEDS ORDERED: MELATONIN 3 MG TABLET PO PRN (21:45)
[2022-08-01] MEDS ORDERED: NS IV 1000 ML 1,000 ML IV SCH (21:45)
[2022-08-01] MEDS ORDERED: polyethylene glycoL POWDER 17 GM (MIRALAX) PACK PO PRN (21:45)
[2022-08-01] MEDS ORDERED: diphenhydrAMINE 25 MG TAB (BENADRYL) PO PRN (21:45)
[2022-08-01] MEDS ORDERED: diphenhydrAMINE 50 MG/ML INJ (BENADRYL) IVP PRN (21:45)
--- NOTE | 2022-08-01 22:35 | Tele-ICU Consult ---
Progress Note 77 yo female with h/o COPD on oxygen presented with dyspnea x 1 week. No reported fever or chest pain Focused Exam Possible Source: Pulmonary Lactate Level 08/01/22 16:15: Lactic Acid Level 2.11*H 08/01/22 19:25: Lactic Acid Level 1.01 Height, Weight, BMI Height: '" Weight: lbs. oz. kg; 16.41 BMI Method: Cardiovascular: Regular Rate, Rhythm Skin: normal color Lactic Acid Level Laboratory Tests Test 08/01/22 19:25 Lactic Acid Level 1.01 MMOL/L (0.50-2.00) Allergies and Home Medications Allergies Coded Allergies: No Known Drug Allergies (Unverified , 11/10/19) Patient Home Medication List Home Medication List Reviewed: No Albuterol Sulfate (Albuterol Sulfate) 2.5 Mg/3 Ml Vial.neb, 2.5 MG NEB Q6H PRN for SHORTNESS OF BREATH, (Reported) Entered as Reported by: AMADO DIAS on 11/13/19 0900 Albuterol Sulfate (Proair Hfa) 1 Puff Puff, 2 PUFF IH Q4H PRN for WHEEZING Prescribed by: DELANO PRITCHETT on 11/18/19 1151 Budesonide/Formoterol Fumarate (Symbicort 160-4.5 Mcg Inhaler) 10.2 Gm Hfa.aer.ad, 2 PUFF INH BID, (Reported) Entered as Reported by: AMADO DIAS on 11/13/19 0900 Cetirizine HCl (Zyrtec) 10 Mg Tablet, 10 MG PO DAILY PRN for ALLERGIES, (Reported) Entered as Reported by: AMADO DIAS on 11/13/19 0903 Guaifenesin (Mucinex) 600 Mg Tab.er.12h, 600 MG PO BID, (Reported) Entered as Reported by: AMADO DIAS on 11/13/19 0901 Ipratropium/Albuterol Sulfate (Iprat-Albut 0.5-3(2.5) mg/3 ml) 3 Ml Ampul.neb, 3 ML INH Q4H PRN for WHEEZING Prescribed by: DELANO PRITCHETT on 11/18/19 1151 Montelukast Sodium (Montelukast Sodium) 10 Mg Tablet, 10 MG PO HS, (Reported) Entered as Reported by: AMADO DIAS on 11/13/19 0900 Pantoprazole Sodium (Pantoprazole Sodium) 20 Mg Tablet.dr, 20 MG PO DAILY Prescribed by: DELANO PRITCHETT on 11/18/19 1151 [Hip kit] , EACH, (DME) Prescribed by: DELANO PRITCHETT on 11/18/19 1212 [shower chair] , (DME) Prescribed by: DELANO PRITCHETT on 11/18/19 1212 Assessment/Plan Assessment and Plan Assess & Plan/Chief Complaint COPD exacerbation. Pt started on steroids, Cefepime, BPAP, duonebs Prophy enoxaparin I discussed case with bedside nurse Critical Care Critically Ill Patient Data Review Labs Laboratory Tests 08/01/22 16:15: White Blood Count 11.2H, Red Blood Count 4.60, Hemoglobin 13.5, Hematocrit 42, Mean Corpuscular Volume 90, Mean Corpuscular Hemoglobin 29, Mean Corpuscular Hemoglobin Concent 33, Red Cell Distribution Width 13.0, Platelet Count 411H, Mean Platelet Volume 10.2, Immature Granulocyte % (Auto) 0, Neutrophils (%) (Auto) 70, Lymphocytes (%) (Auto) 20, Monocytes (%) (Auto) 8, Eosinophils (%) (Auto) 2, Basophils (%) (Auto) 0, Neutrophils # (Auto) 7.8, Lymphocytes # (Auto) 2.2, Monocytes # (Auto) 0.9, Eosinophils # (Auto) 0.2, Basophils # (Auto) 0.0, Immature Granulocyte # (Auto) 0.0, Prothrombin Time 12.8, INR Comment 0.9, Activated Partial Thromboplast Time 28, D-Dimer 0.32, Sodium Level 138, Potassium Level 4.9, Chloride Level 95L, Carbon Dioxide Level 30, Anion Gap 13, Blood Urea Nitrogen 23H, Creatinine 0.54L, Estimat Glomerular Filtration Rate 95, BUN/Creatinine Ratio 43, Glucose Level 160H, Lactic Acid Level 2.11*H, Calcium Level 9.9, Corrected Calcium , Magnesium Level 1.9, Total Bilirubin 0.3, Aspartate Amino Transf (AST/SGOT) 25, Alanine Aminotransferase (ALT/SGPT) 22, Alkaline Phosphatase 126, Troponin I < 0.30, Pro-B-Type Natriuretic Peptide 168.6, Total Protein 7.6, Albumin 4.6H, Influenza Type A (RT-PCR) Not Detected, Influenza Type B (RT-PCR) Not Detected, SARS-CoV-2 RNA (RT-PCR) Not Detected 08/01/22 17:15: Urine Color YELLOW, Urine Clarity SL CLOUDY, Urine pH 6.0, Urine Specific [place] 1.025H, Urine Protein NEGATIVE, Urine Glucose (UA) NEGATIVE, Urine Ketones NEGATIVE, Urine Nitrite NEGATIVE, Urine Bilirubin NEGATIVE, Urine Uro bilinogen 0.2, Urine Leukocyte Esterase NEGATIVE, Urine RBC (Auto) NEGATIVE, Urine RBC NONE, Urine WBC 0-2, Urine Squamous Epithelial Cells RARE, Urine Crystals NONE, Urine Bacteria NEGATIVE, Urine Casts PRESENT, Urine Hyaline Casts 10-25H, Urine Granular Casts 0-2H, Urine Mucus NEGATIVE, Urine Culture Indicated NO, Urine Opiates Screen NEGATIVE, Urine Oxycodone Screen NEGATIVE, Urine Methadone Screen NEGATIVE, Urine Propoxyphene Screen NEGATIVE, Urine B arbiturates Screen NEGATIVE, Ur Tricyclic Antidepressants Screen NEGATIVE, Urine Phencyclidine Screen NEGATIVE, Urine Amphetamines Screen NEGATIVE, Urine Methamphetamines Screen NEGATIVE, Urine Benzodiazepines Screen NEGATIVE, Urine Cocaine Screen NEGATIVE, Urine Cannabinoids Screen NEGATIVE 08/01/22 19:25: Lactic Acid Level 1.01 08/01/22 22:25: Exam Vital Signs Vital Signs 08/01/22 08/01/22 08/01/22 08/01/22 16:05 17:26 20:15 21:58 Temp 36.4 Pulse 88 Resp 30 B/P (MAP) 106/80 (89) Pulse Ox 98 O2 Delivery NIV Bilevel O2 Flow Rate 40.00 FiO2 40 Capillary Refill : Less Than 3 Seconds Labs Laboratory Tests Test 08/01/22 16:15 08/01/22 17:15 08/01/22 19:25 08/01/22 22:25 Range/Units White Blood Count 11.2 H 4.3-11.0 10^3/uL Red Blood Count 4.60 3.80-5.11 10^6/uL Hemoglobin 13.5 11.5-16.0 g/dL Hematocrit 42 35-52 % Mean Corpuscular Volume 90 80-99 fL Mean Corpuscular Hemoglobin 29 25-34 pg Mean Corpuscular Hemoglobin Concent 33 32-36 g/dL Red Cell Distribution Width 13.0 10.0-14.5 % Platelet Count 411 H 130-400 10^3/uL Mean Platelet Volume 10.2 9.0-12.2 fL Immature Granulocyte % (Auto) 0 % Neutrophils (%) (Auto) 70 42-75 % Lymphocytes (%) (Auto) 20 12-44 % Monocytes (%) (Auto) 8 0-12 % Eosinophils (%) (Auto) 2 0-10 % Basophils (%) (Auto) 0 0-10 % Neutrophils # (Auto) 7.8 1.8-7.8 10^3/uL Lymphocytes # (Auto) 2.2 1.0-4.0 10^3/uL Monocytes # (Auto) 0.9 0.0-1.0 10^3/uL Eosinophils # (Auto) 0.2 0.0-0.3 10^3/uL Basophils # (Auto) 0.0 0.0-0.1 10^3/uL Immature Granulocyte # (Auto) 0.0 0.0-0.1 10^3/uL Prothrombin Time 12.8 12.2-14.7 SEC INR Comment 0.9 0.8-1.4 Activated Partial Thromboplast Time 28 24-35 SEC D-Dimer 0.32 0.00-0.49 UG/ML Sodium Level 138 135-145 MMOL/L Potassium Level 4.9 3.6-5.0 MMOL/L Chloride Level 95 L 98-107 MMOL/L Carbon Dioxide Level 30 21-32 MMOL/L Anion Gap 13 5-14 MMOL/L Blood Urea Nitrogen 23 H 7-18 MG/DL Creatinine 0.54 L 0.60-1.30 MG/DL Estimat Glomerular Filtration Rate 95 BUN/Creatinine Ratio 43 Glucose Level 160 H 70-105 MG/DL Lactic Acid Level 2.11 *H 1.01 0.50-2.00 MMOL/L Calcium Level 9.9 8.5-10.1 MG/DL Corrected Calcium 8.5-10.1 MG/DL Magnesium Level 1.9 1.6-2.4 MG/DL Total Bilirubin 0.3 0.1-1.0 MG/DL Aspartate Amino Transf (AST/SGOT) 25 5-34 U/L Alanine Aminotransferase (ALT/SGPT) 22 0-55 U/L Alkaline Phosphatase 126 40-136 U/L Troponin I < 0.30 <0.30 NG/ML Pro-B-Type Natriuretic Peptide 168.6 <450.0 PG/ML Total Protein 7.6 6.4-8.2 GM/DL Albumin 4.6 H 3.2-4.5 GM/DL Influenza Type A (RT-PCR) Not Detected Not Detecte Influenza Type B (RT-PCR) Not Detected Not Detecte SARS-CoV-2 RNA (RT-PCR) Not Detected Not Detecte Urine Color YELLOW Urine Clarity SL CLOUDY Urine pH 6.0 5-9 Urine Specific [place] 1.025 H 1.016-1.022 Urine Protein NEGATIVE NEGATIVE Urine Glucose (UA) NEGATIVE NEGATIVE Urine Ketones NEGATIVE NEGATIVE Urine Nitrite NEGATIVE NEGATIVE Urine Bilirubin NEGATIVE NEGATIVE Urine Urobilinogen 0.2 < = 1.0 MG/DL Urine Leukocyte Esterase NEGATIVE NEGATIVE Urine RBC (Auto) NEGATIVE NEGATIVE Urine RBC NONE /HPF Urine WBC 0-2 /HPF Urine Squamous Epithelial Cells RARE /HPF Urine Crystals NONE /LPF Urine Bacteria NEGATIVE /HPF Urine Casts PRESENT /LPF Urine Hyaline Casts 10-25 H /LPF Urine Granular Casts 0-2 H /LPF Urine Mucus NEGATIVE /LPF Urine Culture Indicated NO Urine Opiates Screen NEGATIVE NEGATIVE Urine Oxycodone Screen NEGATIVE NEGATIVE Urine Methadone Screen NEGATIVE NEGATIVE Urine Propoxyphene Screen NEGATIVE NEGATIVE Urine Barbiturates Screen NEGATIVE NEGATIVE Ur Tricyclic Antidepressants Screen NEGATIVE NEGATIVE Urine Phencyclidine Screen NEGATIVE NEGATIVE Urine Amphetamines Screen NEGATIVE NEGATIVE Urine Methamphetamines Screen NEGATIVE NEGATIVE Urine Benzodiazepines Screen NEGATIVE NEGATIVE Urine Cocaine Screen NEGATIVE NEGATIVE Urine Cannabinoids Screen NEGATIVE NEGATIVE General Appearance: Alert, Mild Distress, Moderate Distress HEENT: EOMI Cardiovascular: Regular Rate Psych/Mental Status: Mental Status NL Labs Laboratory Tests 08/01/22 16:15 TEMI JC MD Aug 01, 2022 22:35
[2022-08-01 22:59] VITALS: BP 135/72
[2022-08-01] MEDS ORDERED: RT-ALBUTEROL SULF 2.5 MG/3 ML PRE-MIX VIAL INH PRN (23:15)
[2022-08-02] MEDS: CEFEPIME 1,000 MG/NS 50 ML IVPB IV SCH ×10 (00:03→23:58)
[2022-08-02] MEDS: methylPREDNISolone 125 MG (Solu-MEDROL) VIAL IV SCH ×4 (00:04→17:45)
[2022-08-02 03:26] VITALS: BP 123/51
[2022-08-02] MEDS: RT-ALBUTEROL/IPRATROPIUM 3 ML (DUONEB) VIAL INH SCH ×6 (03:26→20:22)
[2022-08-02 04:49] LABS: BASOPHILS % (AUTO) 0 % (0-10); EOSINOPHILS % (AUTO) 0 % (0-10); HEMATOCRIT 38 % (35-52); HEMOGLOBIN 12.1 g/dL (11.5-16.0); LYMPHOCYTES # (AUTO) 0.5 10^3/uL (1.0-4.0); LYMPHOCYTES % (AUTO) 7 % (12-44); MEAN CORPUSCULAR HEMOGLOBIN 29 pg (25-34); MEAN CORPUSCULAR HGB CONC 32 g/dL (32-36); MEAN CORPUSCULAR VOLUME 91 fL (80-99); MEAN PLATELET VOLUME 10.3 fL (9.0-12.2); MONOCYTES % (AUTO) 0 % (0-12); NEUTROPHILS # (AUTO) 6.3 10^3/uL (1.8-7.8); NEUTROPHILS % (AUTO) 92 % (42-75); PLATELET COUNT 390 10^3/uL (130-400); WHITE BLOOD COUNT 6.9 10^3/uL (4.3-11.0)
[2022-08-02 04:57] LABS: ALBUMIN 4.1 GM/DL (3.2-4.5)
[2022-08-02 04:58] LABS: POTASSIUM 4.7 MMOL/L (3.6-5.0)
[2022-08-02 04:59] LABS: CALCIUM 9.3 MG/DL (8.5-10.1)
[2022-08-02 05:00] LABS: TOTAL PROTEIN 7.1 GM/DL (6.4-8.2)
[2022-08-02 05:02] LABS: BILIRUBIN,TOTAL 0.2 MG/DL (0.1-1.0)
[2022-08-02 05:03] LABS: PHOSPHORUS 3.2 MG/DL (2.3-4.7)
[2022-08-02 05:04] LABS: CREATININE SERUM 0.79 MG/DL (0.60-1.30)
[2022-08-02] MEDS: inSUlin ASPART (NovoLOG) 1 UNIT/0.01 ML (CHARGE PER UNIT) SC SCH ×4 (05:30→21:00)
[2022-08-02] MEDS ORDERED: POTASSIUM CL 10MEQ/50ML IVPB 50 ML IV SCH (06:00)
[2022-08-02] MEDS ORDERED: MAGNESIUM 1 GM/100 ML IVPB 100 ML IV SCH (06:00)
[2022-08-02] MEDS ORDERED: KCL 20 MEQ TAB (K-DUR) PO SCH (06:00)
[2022-08-02 06:23] LABS: ABG BASE EXCESS 6.3 MMOL/L (-2.5-2.5); ABG OXYGEN SATURATION 98 % (94-100); ABG PCO2 57 MMHG (35-45); ABG PH 7.36 (7.37-7.43); ABG PO2 91 MMHG (79-93); ABG TCO2 33.2 MMOL/L (21.0-31.0)
[2022-08-02 06:25] LABS: ALLENS TEST YES-POS; INSPIRED O2 30%; PATIENT TEMP 37.2; VENTILATOR NO
[2022-08-02 06:40] VITALS: BP 102/59
--- NOTE | 2022-08-02 07:58 | Consultation-Cardiology ---
HPI-Cardiology Cardiology Consultation: Date of Consultation 08/02/22 Date of Admission Attending Physician Pete Lombardo MD Admitting Physician Admitting Physician: Mary Beth Brar DO Attending Physician: Mary Beth Brar DO Consulting Physician Renea Castillo MD ITF-[id number]-Xnbtlb Hx Patient Social History Smoking Status: Former Smoker 2nd Hand Smoke Exposure: No Have you traveled recently?: No Alcohol Use?: No Pt feels they are or have been: No Tobacco type used: Cigarettes Immunizations Up To Date Date of Pneumonia Vaccine: Oct 26, 2017 Date of Influenza Vaccine: Aug 26, 2019 Past Medical History PMH As described under Assessment. Allergies and Home Medications Allergies Coded Allergies: No Known Drug Allergies (Unverified , 11/10/19) Patient Home Medication List Albuterol Sulfate (Proventil Hfa) 6.7 Gm Hfa.aer.ad, 2 PUFF INH Q4H PRN for SHORTNESS OF BREATH, (Reported) Entered as Reported by: GELA DIEGO on 08/02/221044 Last Action: Continued Aspirin (Aspirin) 325 Mg Tablet, 325 MG PO DAILY, (Reported) Entered as Reported by: GELA DIEGO on 08/02/221044 Last Action: Continued Calcium Carbonate/Vitamin D3 (Calcium + Vitamin D Tablet) 600 Mg Calcium-5 Mcg (200 Unit) Tablet, 1 EA PO DAILY, (Reported) Entered as Reported by: GELA DIEGO on 08/02/221044 Last Action: Converted Cetirizine HCl (Cetirizine HCl) 10 Mg Tablet, 10 MG PO DAILY, (Reported) Entered as Reported by: GELA DIEGO on 08/02/22 104 Last Action: Continued Famotidine (Famotidine) 20 Mg Tablet, 20 MG PO DAILY, (Reported) Entered as Reported by: GELA DIEGO on 08/02/22 1155 Last Action: Continued Fluticasone Propionate (Flonase Allergy Relief) 50 Mcg/Actuation Drayden.susp, 1-2 SPRAY NSEACH DAILY PRN for CONGESTION, (Reported) Entered as Reported by: GELA DIEGO on 08/02/221046 Last Action: Converted Fluticasone/Umeclidin/Vilanter (Trelegy Ellipta 100-62.5-25) 100-62.5 Blst.w.dev, 1 PUFF INH DAILY, (Reported) Entered as Reported by: GELA DIEGO on 08/02/221044 Last Action: Converted Furosemide (Furosemide) 20 Mg Tablet, 20-40 MG PO DAILY PRN for FLUID RETENTION, (Reported) Entered as Reported by: GELA DIEGO on 08/02/221044 Last Action: Continued Guaifenesin (Mucinex) 600 Mg Tab.er.12h, 600 MG PO BID, (Reported) Entered as Reported by: AMADO DIAS on 11/13/19 09 Last Action: Continued Ipratropium/Albuterol Sulfate (Iprat-Albut 0.5-3(2.5) mg/3 ml) 0.5 Mg-3 Mg (2.5 Mg Base)/3 Ml Ampul.neb, 3 ML IH Q6H, (Reported) Entered as Reported by: GELA DIEGO on 08/02/221044 Last Action: Held Levothyroxine Sodium (Levothyroxine Sodium) 50 Mcg Tablet, 50 MCG PO DAILY, (Reported) Entered as Reported by: GELA DIEGO on 08/02/221044 Last Action: Continued Lisinopril (Lisinopril) 10 Mg Tablet, 10 MG PO DAILY, (Reported) Entered as Reported by: GELA DIEGO on 08/02/221044 Last Action: Continued Lorazepam (Ativan) 0.5 Mg Tablet, 0.5 MG PO DAILY PRN for ANXIETY, (Reported) Entered as Reported by: GELA DIEGO on 08/02/221044 Last Action: Continued Montelukast Sodium (Montelukast Sodium) 10 Mg Tablet, 10 MG PO DAILY, (Reported) Entered as Reported by: AMADO DIAS on 11/13/19 09 Last Action: Continued Multivits-Min/Iron/FA/Lutein (Centrum Silver Women Tablet) 8 Mg Iron-400 Mcg-300 Mcg Tablet, 1 EACH PO DAILY, (Reported) Entered as Reported by: GELA DIEGO on 08/02/221046 Last Action: Converted Discontinued Medications Albuterol Sulfate (Albuterol Sulfate) 2.5 Mg/3 Ml Vial.neb, 2.5 MG NEB Q6H PRN for SHORTNESS OF BREATH, (Reported) Discontinued Reason: Duplicate Order Entered as Reported by: AMADO DIAS on 11/13/19899 Last Action: Discontinued Albuterol Sulfate (Proair Hfa) 1 Puff Puff, 2 PUFF IH Q4H PRN for WHEEZING Discontinued Reason: Duplicate Order Prescribed by: DELANO PRITCHETT on 11/18/191150 Last Action: Discontinued Alendronate Sodium (Fosamax) 70 Mg Tablet, 70 MG PO WEEK, (Reported) Discontinued Reason: No Longer Taking Entered as Reported by: GELA DIEGO on 08/02/22 1045 Last Action: Discontinued Budesonide/Formoterol Fumarate (Symbicort 160-4.5 Mcg Inhaler) 10.2 Gm Hfa.aer.ad, 2 PUFF INH BID, (Reported) Discontinued Reason: Duplicate Order Entered as Reported by: AMADO DIAS on 11/13/19899 Last Action: Discontinued Cetirizine HCl (Zyrtec) 10 Mg Tablet, 10 MG PO DAILY PRN for ALLERGIES, (Reported) Discontinued Reason: Duplicate Order Entered as Reported by: AMADO DIAS on 11/13/19902 Last Action: Discontinued Ipratropium/Albuterol Sulfate (Iprat-Albut 0.5-3(2.5) mg/3 ml) 3 Ml Ampul.neb, 3 ML INH Q4H PRN for WHEEZING Discontinued Reason: Duplicate Order Prescribed by: DELANO PRITCHETT on 11/18/191150 Last Action: Discontinued Pantoprazole Sodium (Pantoprazole Sodium) 20 Mg Tablet.dr, 20 MG PO DAILY Discontinued Reason: Duplicate Order Prescribed by: DELANO PRITCHETT on 11/18/191150 Last Action: Discontinued [Hip kit] , EACH, (DME) Discontinued Reason: Duplicate Order Prescribed by: DELANO PRITCHETT on 11/18/191211 Last Action: Discontinued [shower chair] , (DME) Discontinued Reason: Duplicate Order Prescribed by: DELANO PRITCHETT on 11/18/191211 Last Action: Discontinued Physical Exam-Cardiology Physical Exam Vital Signs/I&O 08/07/22 08/08/22 08/08/22 08/08/22 22:23 00:01 02:03 07:13 Temp 37.5 Pulse 72 81 68 Resp 16 18 17 B/P (MAP) 139/63 (88) Pulse Ox 96 98 97 98 O2 Delivery NIV Bilevel Nasal Cannula O2 Flow Rate 25.00 25.00 25.00 2.00 08/08/22 08/08/22 07:27 07:29 Temp 35.3 Pulse 100 Resp 18 B/P (MAP) 169/74 (105) Pulse Ox 79 O2 Delivery Nasal Cannula Nasal Cannula O2 Flow Rate 2.00 2.00 08/08/22 00:00 Intake Total 1190 ml Output Total 900 ml Balance 290 ml Capillary Refill : Less Than 3 Seconds Skin: normal color Data Review Labs Laboratory Tests 08/07/22 10:48: Glucometer 114H 08/07/22 15:45: Glucometer 157H 08/07/22 20:15: Glucometer 139H 08/08/22 05:05: White Blood Count 19.0H, Red Blood Count 4.19, Hemoglobin 12.1, Hematocrit 38, Mean Corpuscular Volume 91, Mean Corpuscular Hemoglobin 29, Mean Corpuscular Hemoglobin Concent 32, Red Cell Distribution Width 13.2, Platelet Count 429H, Mean Platelet Volume 10.5, Immature Granulocyte % (Auto) 1, Neutrophils (%) (Auto) 74, Lymphocytes (%) (Auto) 15, Monocytes (%) (Auto) 10, Eosinophils (%) (Auto) 0, Basophils (%) (Auto) 0, Neutrophils # (Auto) 14.1H, Lymphocytes # (Auto) 2.8, Monocytes # (Auto) 1.9H, Eosinophils # (Auto) 0.0, Basophils # (Auto) 0.0, Immature Granulocyte # (Auto) 0.3H, Sodium Level 141, Potassium Level 4.2, Chloride Level 95L, Carbon Dioxide Level 34H, Anion Gap 12, Blood Urea Nitrogen 21H, Creatinine 0.59L, Estimat Glomerular Filtration Rate 93, BUN/Creatinine Ratio 36, Glucose Level 49*L, Calcium Level 9.4, Corrected Calcium 9.6, Total Bilirubin 0.3, Aspartate Amino Transf (AST/SGOT) 30, Alanine Aminotransferase (ALT/SGPT) 45, Alkaline Phosphatase 77, Total Protein 6.3L, Albumin 3.8 08/08/22 05:19: Glucometer 53*L 08/08/22 06:01: Glucometer 111H Radiology NAME: EMMANUEL BROOKS [facility] REC#: [id number] PT STATUS: REG ER : 1945 PHYSICIAN: SHANNAN DEUTSCH MD ADMIT DATE: 08/01/22/ER FS Signed Date of Exam:08/01/22 CT ANGIO CHEST W PROCEDURE: CT angiography of the chest with contrast. TECHNIQUE: Multiple contiguous axial images were obtained through the chest after uneventful bolus administration of intravenous contrast. 3D reconstructed CTA MIP acquisitions were also performed. Auto Exposure Controls were utilized during the CT exam to meet ALARA standards for radiation dose reduction. INDICATION: COPD patient, shortness of air, chest pain. It is compared with chest CT 01/25/2022. FINDINGS: The pulmonary arterial branches well opacified, widely patent. No filling defect. No PE. The thoracic aorta patent, nonaneurysmal and nonacute. There is no pleural or pericardial effusion. Centrilobular emphysema with symmetrical hyperexpansion of the lungs stable. A focal irregular opacity in the left upper lobe anteriorly is partially retracted and decreased in size from the previous and appears more scarlike as opposed to masslike. No adverse interval development. No adenopathy. No chest wall lesion. Visualized upper abdomen appeared nonacute. IMPRESSION: 1. Negative for PE or acute aortic disease. Left upper lobe nodule is decreased in size and appears more linear at follow-up with no new lung mass, adenopathy or adverse interval change. Dictated by: Dictated on workstation # [id number] Dict: 08/01/229 Trans: 08/01/221849 [facility] [id number] Interpreted by: JANIE TORIBIO Electronically signed by: JANIE TORIBIO 08/01/22 1850 A/P-Cardiology Assessment/Admission Diagnosis Intermittent, nonspecific chest discomfort, currently stable - MPI of 01/04/21: no ischemia or infarction, LVEF 61% Palpitations - Holter of 01/04/21: NSR, PACs and PVCs, a few runs of SVT (up to 4 beats at rates up to 160 bpm) - ILR offered - not agreeable at time of office visit on 04-06-22 SOB - likely secondary to COPD/pulmonary HTN COPD - managed by PCP and by 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 Angel showed LVEF 55-65%. grade 1 diastolic dysfunction. LA mildly dilated. Mod TR. PASP 65-70 mmHg. Dilated inferior vena cava. - Echocardiogram of 09-05-21 showed LVEF 50-55%. LA dilated. Mild to mod TR. PASP 30-35 mmHg Carotid dz - Moderate, bilateral carotid arterial disease w/o evidence of hemodynamic significance on carotid u/s of 12/02/20 [facility] Aug 02, 2022 07:58
[2022-08-02] MEDS: ENOXAPARIN INJECTION 30 MG/0.3 ML SYR SC SCH (08:43)
--- NOTE | 2022-08-02 08:55 | Physical Therapy Evaluation ---
PT Evaluation-General Medical Diagnosis Admission Date Aug 01, 2022 at 21:26 Medical Diagnosis: COPD exacerbation Onset Date: Aug 01, 2022 Therapy Diagnosis Therapy Diagnosis: impaired mobility Precautions Precautions/Isolations: Standard Precautions Referral Physician: Mary Beth Brar DO Reason for Referral: Evaluation/Treatment Medical History Pertinent Medical History: COPD, HTN, Smoking Additional Medical History Past Medical History Surgeries: Yes Appendectomy, Gallbladder, Hysterectomy, Orthopedic Respiratory: Yes COPD Cardiac: No Hypertension Neurological: No Genitourinary: No Gastrointestinal: No Musculoskeletal: No Endocrine: No HEENT: No Cancer: No Psychosocial: No Integumentary: No Reviewed History: Yes Social History Home: Single Level Current Living Status: Alone Entry Into Home: Stairs With Railing PT Steps Into Home: 17 Prior Prior Level of Function SCALE: Activities may be completed with or without assistive devices. 3-Wvabuuuajn-mpagyye completes the activity by him/herself with no assistance from a helper. 5-Set-up or Clean-up Assistance-helper sets up or cleans up; patient completes activity. [place] assists only prior to or following the activity. 4-Supervision or Touching Assistance-helper provides verbal cues and/or touching/steadying and/or contact guard assistance as patient completes activity. Assistance may be provided throughout the activity or intermittently. 3-Partial/Moderate Assistance-helper does LESS THAN HALF the effort. [place] lifts, holds or supports trunk or limbs, but provides less than half the effort. 2-Substantial/Maximal Assistance-helper does MORE THAN HALF the effort. [place] lifts or holds trunk or limbs and provides more than half the effort. 6-Cwfxodxie-spfeve does ALL the effort. Patient does none of the effort to complete the activity. Or, the assistance of 2 or more helpers is required for the patient to complete the activity. If activity was not attempted, code reason: 7-Patient Refused. 9-Not Applicable-not attempted and the patient did not perform the activity before the current illness, exacerbation or injury. 10-Not Attempted due to Environmental Limitations-(lack of equipment, weather restraints, etc.). 88-Not Attempted due to Medical Conditions or Safety Concerns. Bed Mobility: 6 Transfers (B,C,W/C): 6 Gait: 6 Stairs: 6 Indoor Mobility (Ambulation): Independent Stairs: Independent Prior Devices Use: Walker PT Evaluation-Current Subjective Patient in bed pre tx, agrees to PT, has no complaints of pain. Pt/Family Goals to be independent at home Objective Patient Orientation: Person, Place, Situation Attachments: Oxygen (vapotherm), Recinos Catheter, IV ROM/Strength ROM Lower Extremities WNL Sensory Hearing: Functional Transfers Roll Left to Right (QC): 6 Lying to Sitting/Side of Bed(Q: 6 Sit to Stand (QC): 4 Chair/Iru-kv-Xuvnm Xfer(QC): 4 Gait Does the Patient Walk?: Yes Mode of Locomotion: Walk Anticipated Mode of Locomotion: Walk Distance: 5' Gait Assistive Device: Handheld Assist Comments/Gait Description CGA, slow but steady ambulation Balance Sitting Static: Normal Sitting Dynamic: Normal Standing Static: Good Standing Dynamic: Good Treatment BLE seated exercises x20 (AP, LAQ) Assessment/Needs Patient in recliner at bedside post tx with nurse call, phone, tray, all needs met. Patient has impaired mobility, needs CGA and GOODYEAR STITCHER for transfers. Rehab Potential: Fair PT Half-Way Goals Half-Way Goals PT Head Of Human Resources Goals Time Frame: Aug 09, 2022 Roll Left & Right (QC): 6 Sit to Lying (QC): 6 Lying-Sitting on Side/Bed(QC): 6 Sit to Stand (QC): 6 Chair/Fro-hd-Wtxmg Xfer(QC): 6 Walk 10 feet (QC): 6 Walk 50ft with 2 Turns (QC): 6 PT Plan Problem List Problem List: Activity Tolerance, Functional Strength, Safety, Balance, Gait, Transfer, Bed Mobility, ROM Treatment/Plan Treatment Plan: Continue Plan of Care Treatment Plan: Bed Mobility, Education, Functional Activity Julienne, Functional Strength, Gait, Safety, Therapeutic Exercise, Transfers Treatment Duration: Aug 09, 2022 Frequency: 6 times per week Estimated Hrs Per Day: .25 hour per day Patient and/or Family Agrees t: Yes Safety Risks/Education Patient Education: Gait Training, Transfer Techniques, Correct Positioning, Safety Issues Teaching Recipient: Patient Teaching Methods: Demonstration, Discussion Response to Teaching: Reinforcement Needed Discharge Recommendations Plan Patient will perform bed mobility and transfer training, balance and endurance training, functional strengthening, stair training, gait training, and education, to improve functional mobility and independence at home. Therapy Discharge Recommendati: Scheduled Assistance, Home & Family, Post Acute PT Time/GCodes Time In: 813 Time Out: 0824 Total Billed Treatment Time: 10 Total Billed Treatment 1 visit NAKULM 10' BRENDA LUNA PT Aug 02, 2022 08:55
[2022-08-02] MEDS ORDERED: CEFEPIME INJECTION 2,000 MG in NS (IVPB) 50 ML IV SCH (09:00)
[2022-08-02] MEDS: DOCUSATE SODIUM 100 MG (COLACE) CAP PO SCH ×2 (09:02→21:00)
[2022-08-02] MEDS ORDERED: FAMOTIDINE 20 MG (PEPCID) TABLET PO PRN (09:30)
--- NOTE | 2022-08-02 09:41 | Tele-ICU Progress Note ---
Subjective Date Seen by a Provider: Aug 02, 2022 Time Seen by a Provider: 09:40 Subjective/Events-last exam (Tele-ICU Physician , Progress Note ) Available chart/ vitals / labs / Images reviewed Video assessment done using teleICU camera, rest of exam as per RN Discussed with RN Events overnight : Afebrile hemodynamically stable Respiratory - I/O = Drips: Pressors- no Consultants: Hospital course: A/P Acute on chronic hypoxix and hypercarbic resp failure ( AECOPD, [facility] 08/01 - no PE or PNA - Off NIPPV - on VT - cont to wean down o2 AECOPD - as per notes - was tx with steroids 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 Discussed with RN to reach out if any questions or concerns A total of 31 minutes of critical care time was devoted to this patient today, required to treat and/or prevent further deterioration of critical care condition ( as above ) . Sepsis Event Evaluation Height, Weight, BMI Height: '" Weight: lbs. oz. kg; 16.41 BMI Method: Focused Exam Lactate Level 08/01/22 16:15: Lactic Acid Level 2.11*H 08/01/22 19:25: Lactic Acid Level 1.01 Exam Exam Patient acknowledged, consented, and participated in this virtual visit which was conducted using real time audio/video Vital Signs Date Time Temp Pulse Resp B/P (MAP) Pulse Ox O2 Delivery O2 Flow Rate FiO2 08/02/22 08:00 36.4 08/02/22 08:00 83 26 108/79 (89) 98 Vapotherm 5.00 60.00 08/02/22 07:34 82 08/02/22 07:00 78 23 137/60 (85) 99 Vapotherm 5.00 60.00 08/02/22 06:40 73 18 99 30.00 08/02/22 06:00 74 22 102/59 (65) 99 NIV Bilevel 40.00 08/02/22 05:00 83 21 148/66 (99) 98 NIV Bilevel 40.00 08/02/22 04:00 37.2 08/02/22 04:00 89 23 128/64 (79) 97 NIV Bilevel 40.00 08/02/22 04:00 NIV CPAP 40 08/02/22 03:26 88 20 98 30.00 08/02/22 03:00 82 21 123/51 (80) 98 NIV Bilevel 40.00 08/02/22 02:00 78 18 103/59 (72) 98 NIV Bilevel 40.00 08/02/22 01:00 80 08/02/22 01:00 80 20 105/57 (69) 98 NIV Bilevel 40.00 08/02/22 00:00 NIV CPAP 40 08/02/22 00:00 79 21 124/66 (85) 97 NIV Bilevel 40.00 08/01/22 23:15 93 29 99 NIV Bilevel 40.00 08/01/22 23:00 97 15 166/87 (136) 100 Vapotherm 25.00 60.00 08/01/22 22:59 88 95 40 08/01/22 22:58 98 Vapotherm 25.00 60 08/01/22 22:23 90 14 135/72 (85) 99 Vapotherm 25.00 60.00 08/01/22 22:15 86 15 141/72 (89) 99 Vapotherm 25.00 60.00 08/01/22 22:00 92 118/68 (80) 98 Vapotherm 25.00 60.00 08/01/22 21:58 88 30 98 40.00 08/01/22 21:45 NIV CPAP 08/01/22 21:45 86 22 101/74 (87) 99 Vapotherm 25.00 60.00 08/01/22 21:36 37.3 08/01/22 21:35 105 25 139/67 (90) 98 NIV Bilevel 40.00 08/01/22 21:33 103 08/01/22 20:15 90 18 106/80 (89) 99 NIV Bilevel 08/01/22 19:30 89 20 121/92 (102) 99 NIV Bilevel 08/01/22 19:01 88 16 111/72 (85) 99 NIV Bilevel 08/01/22 17:26 99 NIV Bilevel 40 08/01/22 16:05 Nasal Cannula 2.00 08/01/22 16:05 36.4 103 23 138/61 (86) 97 Nasal Cannula 2.00 08/01/22 16:05 Nasal Cannula 2.00 I & O 08/02/22 07:00 Intake Total 670 ml Output Total 900 ml Balance -230 ml Height & Weight Height: '" Weight: lbs. oz. kg; 16.41 BMI Method: General Appearance: No Apparent Distress Cardiovascular: Regular Rate, Rhythm Capillary Refill: Less Than 3 Seconds Gastrointestinal: normal bowel sounds, non tender, soft Results Lab Laboratory Tests 08/01/22 16:15 08/02/22 04:38 Assessment/Plan Assessment/Plan 1 JAYNA FITCH MD Aug 02, 2022 09:41
[2022-08-02] MEDS ORDERED: LORA-404 PO (10:45)
[2022-08-02] MEDS ORDERED: ASPI-808 PO (10:45)
[2022-08-02] MEDS ORDERED: LEVO50TA6 PO (10:45)
[2022-08-02] MEDS ORDERED: FLUT1BLS3 INH (10:45)
[2022-08-02] MEDS ORDERED: FURO20TA4 PO (10:45)
[2022-08-02] MEDS ORDERED: CETI10TA17 PO (10:45)
[2022-08-02] MEDS ORDERED: ALEN70TA2 PO (10:45)
[2022-08-02] MEDS ORDERED: RT-ALBUINH INH (10:45)
[2022-08-02] MEDS ORDERED: CALC-140 PO (10:45)
[2022-08-02] MEDS ORDERED: IPRA3AMP31 IH (10:45)
[2022-08-02] MEDS ORDERED: LISI10TA25 PO (10:45)
[2022-08-02] MEDS ORDERED: MULT-1021 PO (10:47)
[2022-08-02] MEDS ORDERED: FLUT9.9S NSEACH (10:47)
[2022-08-02] MEDS ORDERED: FAMO20TA5 PO (11:55)
--- NOTE | 2022-08-02 12:01 | Occupational Therapy Eval ---
OT Evaluation-General/PLF Medical Diagnosis Admission Date Aug 01, 2022 at 21:26 Medical Diagnosis: COPD exacerbation Onset Date: Aug 01, 2022 Therapy Diagnosis Therapy Diagnosis: reduced adl status Precautions Precautions/Isolations: Fall Prevention, Standard Precautions Referral Physician: Mary Beth Brar DO Referral Reason: Evaluation/Treatment Medical History Pertinent Medical History: COPD, HTN, Smoking Current History Pt arrived to ER with c/o SOB. Found to have COPD exacerbation. Per patient, she lives alone in a single story home. However, she has 17 steps she needs to go up/down every time she leaves her home. Pt uses 2L oxygen at baseline. She reports independence with adls, however it has recently been more difficult to complete. 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 Pt normally stands to bathe but recently bought a shower chair secondary to worsening endurance. Reviewed History: Yes Social History Home: Single Level Current Living Status: Alone Entry Into Home: Stairs With Railing Steps Into Home: 17 ADL-Prior Level of Function SCALE: Activities may be completed with or without assistive devices. 1-Zihsamfhtu-ltvjhso completes the activity by him/herself with no assistance from a helper. 5-Set-up or Clean-up Assistance-helper sets up or cleans up; patient completes activity. [place] assists only prior to or following the activity. 4-Supervision or Touching Assistance-helper provides verbal cues and/or touching/steadying and/or contact guard assistance as patient completes activity. Assistance may be provided throughout the activity or intermittently. 3-Partial/Moderate Assistance-helper does LESS THAN HALF the effort. [place] lifts, holds or supports trunk or limbs, but provides less than half the effort. 2-Substantial/Maximal Assistance-helper does MORE THAN HALF the effort. [place] lifts or holds trunk or limbs and provides more than half the effort. 4-Jguikrmhc-vdxhxi does ALL the effort. Patient does none of the effort to complete the activity. Or, the assistance of 2 or more helpers is required for the patient to complete the activity. If activity was not attempted, code reason: 7-Patient Refused. 9-Not Applicable-not attempted and the patient did not perform the activity before the current illness, exacerbation or injury. 10-Not Attempted due to Environmental Limitations-(lack of equipment, weather restraints, etc.). 88-Not Attempted due to Medical Conditions or Safety Concerns. Self Care: Independent Functional Cognition: Independent DME/Equipment: Bath Chair (has not used yet, recently purchased ), Shower, Tub/Shower Drive Self: Yes OT Current Status Subjective Pt reports chest pain when coughing. Appearance Pt returned to sitting in chair, all needs within reach. Mental Status/Objective Patient Orientation: Person, Place, Situation Attachments: Recinos Catheter, IV, Oxygen (Vapotherm), Telemetry Current Glasses/Contacts: Yes Hand Dominance: Right Upper Extremity ROM Impaired bilateral shoulder ROM. ~75 degrees AROM, ~90-100 degrees PROM (to pain tolerance) Upper Extremity Strength Not formally tested, debilitated. ADL-Treatment Lower Body Dressing (QC): 3 (per clinical judgment) On/Off Footwear (QC): 4 Pt sitting in chair at OT arrival. Increased coughing/SOA with dialog. She reports chest pain when coughing. Pt was able to don/doff bilateral socks without assistance but demonstrates increased difficulty/effort with task. She stood with CGA, desats to 88%. Pt appears to become anxious when standing, poor standing tolerance. Cues/assist for safe lowering. Poor activity tolerance exhibited after minimal activity. Pt will benefit from education on energy conservation and AE/DME to improve tolerance/independence in adls. Education OT Patient Education: Correct positioning, Energy conservation, Modified ADL techniques, Purpose of tx/functional activities, Rehab process, Safety issues, Transfer techniques Teaching Recipient: Patient Teaching Methods: Discussion Response to Teaching: Verbalize Understanding, Return Demonstration, Reinf orcement Needed OT Skilled Nursing Goals Skilled Nursing Goals Time Frame: Aug 23, 2022 Eating (QC): 5 Oral Hygiene (QC): 5 Toileting Hygiene (QC): 4 Shower/Bathe Self (QC): 4 Upper Body Dressing (QC): 4 Lower Body Dressing (QC): 4 On/Off Footwear (QC): 5 Additional Goals: 1-Demonstrate ADL Tasks, 2-Verbalize Understanding, 3- ImproveStrength/Julienne 1=Demonstrate adherence to instructed precautions during ADL tasks. 2=Patient will verbalize/demonstrate understanding of assistive devices/modifications for ADL. 3=Patient will improve strength/tolerance for activity to enable patient to perform ADL's. OT Education/Plan Problem List/Assessment Assessment: Decreased Activ Tolerance, Decreased UE Strength, Impaired Funct Balance, Impaired I ADL's, Impaired Self-Care Skills, Restricted Funct UE ROM Discharge Recommendations Plan/Recommendations: Continue POC Therapy Discharge Recommendati: Post Acute OT Treatment Plan/Plan of Care Treatment,Training & Education: Yes Patient would benefit from OT for education, treatment and training to promote independence in ADL's, mobility, safety and/or upper extremity function for ADL's. Plan of Care: ADL Retraining, Functional Mobility, Group Exercise/Act as Ind, UE Funct Exercise/Act Treatment Duration: Aug 23, 2022 Frequency: 3 times per week (3-5x/week) Estimated Hrs Per Day: .25 hour per day Agreement: Yes Rehab Potential: Fair Time/GCodes Start Time: 11:28 Stop Time: 11:40 Total Time Billed (hr/min): 12 Billed Treatment Time 1 visit [place] OT Aug 02, 2022 12:01
--- NOTE | 2022-08-02 12:25 | ST Dysphagia Evaluation ---
Speech Evaluation-General Medical Diagnosis COPD Exacerbation Onset Date: Aug 01, 2022 Therapy Diagnosis Therapy Diagnosis: Suspected Esophageal Dysphagia Precautions Precautions: Fall, Pressure Ulcer, Aspiration Precautions/Isolations: Aspiration, Fall Prevention, Standard Precautions Referral Referring Physician: Dr. Brar Reason for Referral: Evaluation/Treatment Medical History Pertinent Medical History: COPD, HTN, Smoking Current History The patient is a 77 year-old female with a past medical history of CHF, COPD, HTN, and esophageal dysphagia, who presented with a complaint of increasing shortness of breath over the span of one week. Reviewed History: Yes Social History Current Living Status: Alone Speech PLF/Current-Dysphagia Prior Level of Function Per patient, she has consumed a "mostly liquid diet" for the previous weeks due to the globus sensation she describes. The patient reports a mid-chest globus sensation with dry solid consistencies. The patient stated dry, solid consistencies reach the mid-chest region and do not pass. The patient is occasionally able to pass the globus sensation with a subsequent drink of thin liquid. Intermittently, the patient is unable to pass the globus sensation with thin liquid and the thin liquid "feels like it's going to come back up and go t hrough my nose." The patient reports unintentional weight loss throughout the recent months due to the esophageal swallowing difficulty. The patient reports she underwent an esophageal dilation in 2019 and "feels like it's time to do it again." Subjective The patient was seated upright in her chair, awake and alert upon entrance to her room by the clinician. The patient greeted the clinician appropriately and was agreeable to participation in the clinical bedside swallowing evaluation. The patient was independently sipping on coffee from cup edge upon entrance. The patient is receiving supplemental oxygen via Vapotherm nasal cannula at a rate of 60% and 5L. The patient's SpO2% is 98% prior and throughout P.O. bolus trials. Cognitive Status Patient Orientation: Person, Place, Time, Situation Oral Motor Skills Dentition: Natural Current Food Consistancy: Regular, Thin Liquids Ability to Follow Directions: Good Oral Expression Ability: No Impairment Voice Voice Phonatory-Based Quality: Normal Voice Pitch: Normal Voice Loudness: Normal Face Facial Symmetry: Symmetrical Oral-Facial Assessment Oral-Facial Dentition: Normal Labial Seal Description: Normal Smile: Normal Puff Cheeks: Normal Lingual Protrusion: Normal Lingual ROM: Normal Lingual Strength: Normal Volitional Dry Swallow: Yes Voluntary Cough: Yes Can Clear Throat Volitionally: Yes Productive Cough: Yes Productive Throat Clear: Yes Dysphagia Evaluation Consistencies Presented: Thin Liquid, Mechanical Soft, Pureed The patient does not display oral impairments to the swallowing function. The patient does not display pharyngeal impairments to the swallowing function. The patient deferred oral trials of solid consistencies stating, "I know those won't go down." The patient was cued to take small, single sips of thin liquid and small bites of puree and soft solids. Additionally, the patient was cued to alternate solid and liquid consistencies on a 1:1 ratio. As the patient intermittently appeared short of breath, the clinician cued the patient to cease P.O. intake during periods of respiratory fatigue. With the strategies in place, the patient does not display s/s of suspected aspiration with any consistency tested. The patient's vocal quality remained clear following each swallow. Dietary Recommendations: Mechanical Soft (Dysphagia two.) Liquid Recommendations: Thin Recommendations: - Dysphagia two consistency diet with thin liquids, as tolerated. - Fully upright and alert for P.O. intake. - Small, single bites and sips. - Alternate bites and sips on a 1:1 ratio. - Cease P.O. intake during periods of fatigue. - Crush medication and place in puree for administration. - Monitor for s/s of suspected aspiration with P.O. intake. If demonstrated, contact speech pathology. - Consider referral to GI for full evaluation of esophageal functioning. The results and recommendations were discussed with the patient extensively. Additionally, the results and recommendations were provided to the patient's RN immediately following completion. Dysphagia Evaluation Summary The patient displays suspected esophageal dysphagia characterized by a mid-chest globus sensation with solid consistencies (the patient has a history of esophageal dilation). The patient's diet consistency was modified to aid in the esophageal dysphagia s ymptoms reported and appropriate swallowing strategies were discussed. The clinician is unable to provide dysphagia exercises to strengthen esophageal functioning, however, will monitor for the patient's tolerance of the oral diet recommended. If tolerance remains, speech pathology will sign off of services. Speech Short Term Goals Short Term Goals Short Term Goals 1. The patient will follow safe swallowing strategies to eliminate the s/s of suspected aspiration with 90% accuracy, independently. Time Frame-STG: Two Days. Speech Penitentiary Goals Work Station Support Specialist Goals 1. The patient will tolerate the least restrictive diet without s/s of suspected aspiration. Time Frame: Four Days. Speech-Plan Treatment Plan Speech Therapy Treatment Plan: Continue Plan of Care Treatment Duration: Aug 05, 2022 Frequency: 1 time per week Estimated Hrs Per Day: .25 hour per day Rehab Potential: Fair Safety Risks/Education Teaching Recipient: Patient Teaching Methods: Discussion Response to Teaching: Verbalize Understanding Education Topics Provided: Results, Recommendations, Safe Swallowing Strategies, Referral to GI Time Speech Therapy Time In: 11:05 Speech Therapy Time Out: 11:30 Total Billed Time: 25 Billed Treatment Time 1, ASHTYN CARTER [facility] ST Aug 02, 2022 12:25
[2022-08-02] MEDS ORDERED: LORazepam 0.5 MG (ATIVAN) TABLET PO PRN (14:00)
[2022-08-02] MEDS ORDERED: RT-ALBUTEROL SULF 2.5 MG/3 ML PRE-MIX VIAL INH PRN (14:00)
[2022-08-02] MEDS ORDERED: FUROSEMIDE 20 MG (LASIX) TAB PO PRN (14:00)
--- NOTE | 2022-08-02 14:16 | History & Physical-Hospitalist ---
CANDE NEGRO 08/02/22 1416: History of Present Illness HPI/Chief Complaint Patient is a 77 y/o F with history of COPD and CHF. She reports being seen at [facility] ER for shortness of breath onset x1 week then she was transferred to ICU here. States she still feels short of breath here and being on her BiPAP helps her with that. She also reports having increased secretions of the mouth and throat that make it somewhat difficult to breathe. Denies any chest pain or LE edema/pain at this time. ABGs currently are 7.36/57/91. Source: patient Exam Limitations: no limitations Date Seen 08/02/22 Time Seen by a Provider: 14:11 Attending Physician Grupo,Pete PAULINO PCP Admitting Physician: Mary Beth Brar DO Attending Physician: Mary Beth Brar DO Referring Physician Date of Admission Aug 01, 2022 at 21:26 Home Medications & Allergies Home Medications Reviewed patient Home Medication Reconciliation performed by pharmacy medication reconciliations master sonar technician and/or nursing. Patients Allergies have been reviewed. Allergies Allergies Coded Allergies No Known Drug Allergies ([id number]) Past Dffguru-Vbgsjy-Ccfiaw Hx Patient Social History Tobacco Use?: No Tobacco type used: Cigarettes Smoking Status: Former Smoker Smokeless Tobacco Frequency: Never a User Use of E-Cig and/or Vaping dev: No Substance use?: No Alcohol Use?: No Pt feels they are or have been: No Immunizations Up To Date Date of Influenza Vaccine: Aug 26, 2019 Date of Pneumonia Vaccine: Oct 26, 2017 Seasonal Allergies Seasonal Allergies: No Current Status Advance Directives: No Communicates: Verbally Primary Language: Mosotho Preferred Spoken Language: Mosotho Is interpretation needed?: No Sensory deficits: Vision impairment Past Medical History Surgeries: Appendectomy, Gallbladder, Hysterectomy, Orthopedic COPD Hypertension Dysphagia Review of Systems Constitutional: No chills, No fever EENTM: No hearing loss, No blurred vision Respiratory: No cough; dyspnea on exertion, short of breath Cardiovascular: No chest pain, No edema Gastrointestinal: No abdominal pain Musculoskeletal: No joint pain Skin: No change in color, No change in hair/nails Psychiatric/Neurological: Anxiety; Denies Depressed Physical Exam Physical Exam Vital Signs Vital Signs - First Documented 08/01/22 17:26 FiO2 40 Capillary Refill : Less Than 3 Seconds Height, Weight, BMI Height: '" Weight: lbs. oz. kg; 16.41 BMI Method: General Appearance: Chronically ill, Cachetic HEENT: Moist Mucous Membranes Neck: Non Tender, Supple Respiratory: Chest Non Tender, Crackles, Respiratory Distress Cardiovascular: No Edema, No JVD Gastrointestinal: Non Tender, Soft Rectal: Deferred Back: No Vertebral Tenderness Extremity: No Calf Tenderness, No Pedal Edema Neurologic/Psychiatric: Alert, Normal Mood/Affect Skin: Normal Color, Warm/Dry Lymphatic: No Adenopathy Results Results/Procedures Labs Laboratory Tests 08/01/22 16:15 08/02/22 04:38 Patient resulted labs reviewed. Assessment/Plan Admission Diagnosis Assessment: Acute on Chronic Hypoxia COPD Exacerbation CHF Exacerbation Pulmonary Edema Hyperglycemia Plan: Cefapime Furosemide Levamir Continue to monitor labs Continue BiPAP Admission Status: Observation MARY BETH BRAR 08/02/222043: History of Present Illness HPI/Chief Complaint CC: Dyspnea HPI: This is a 77 yr old female with a past medical history of severe COPD and continued smoking, quit just 2 weeks ago. She presented to the [facility] ER with flash pulmonary edema for an exacerbation of COPD. Cardiology was consulted and felt like there were no cardiac issues. She is still requiring Vapotherm and BiPAP. Speech evaluation will be needed for dysphasia. I took care of her in 2019 and she hasn't been hospitalized since then. She has a very severe COPD and cachectic appearance. Source: patient Exam Limitations: no limitations Past Bflacvf-Slvgwd-Tlpmbt Hx Patient Social History Marrital Status: single Employed/Student: retired Smoking Status: Current Everyday Smoker Past Medical History Pneumonia, COPD Review of Systems Constitutional: see HPI Respiratory: dyspnea on exertion Physical Exam Physical Exam General Appearance: Chronically ill, Cachetic, Moderate Distress Respiratory: Accessory Muscle Use, Crackles, Rales, Respiratory Distress, Wheezing Cardiovascular: Regular Rate, Rhythm, No Edema, No Gallop, No JVD, No Murmur, Normal Peripheral Pulses Neurologic/Psychiatric: Alert, Oriented x3, No Motor/Sensory Deficits, Normal Mood/Affect Assessment/Plan Admission Diagnosis IV steroids IV abx Monitor in ICU biPAP Admission Status: Inpatient Order (span 2 midnights) Reason for Inpatient Admission: resp failure Supervisory-Addendum Brief Verification & Attestation Participated in pt care: history, MDM, physical Personally performed: exam, history, MDM, supervision of care Care discussed with: Medical Student Procedures: n/a Results interpretation: Verified all documentation Verification and Attestation of Medical Student E/M Service A medical student performed and documented this service in my presence. I reviewed and verified all information documented by the medical student and made modifications to such information, when appropriate. I personally performed the physical exam and medical decision making. Mary Beth Brar, Aug 02, 2022,20:43 CANDE NEGRO Aug 02, 2022 14:16 MARY BETH BRAR DO Aug 02, 2022 20:44
[2022-08-02] MEDS ORDERED: FLUTICASONE NASAL SPRAY (FLONASE) 16 GM BTL NS PRN (14:30)
[2022-08-02] MEDS: LORazepam 0.5 MG (ATIVAN) TABLET PO PRN (15:20)
[2022-08-02] MEDS: ACETAMINOPHEN 325 MG TABLET PO PRN (15:20)
--- NOTE | 2022-08-02 16:06 | Consultation-Cardiology ---
HPI-Cardiology Cardiology Consultation: Date of Consultation 08/02/22 Time Seen by a Provider: 09:15 Date of Admission Attending Physician Pete Lombardo MD Admitting Physician Admitting Physician: Mary Beth Brar DO Attending Physician: Mary Beth Brar DO Consulting Physician FLAKITA GUZMÁN MD, MA, FACP, FACC, FSCAI, CCDS HPI: Chief Complaint: Shortness of breath 77 yo woman with chronic shortness of breath that has been rapidly progressive lately. Reports a dry cough. Denies cp or palp or syncope or swelling. Denies n/v/d. Has gen weakness and malaise Review of Systems-Cardiology Review of Systems Constitutional: malaise, tiredness; No weight loss, No weight gain Eyes: No vision change Ears/Nose/Throat: No ear discharge, No nasal drainage, No recent hearing loss Respiratory: As described under HPI Cardiovascular: As described under HPI Gastrointestinal: As described under HPI Genitourinary: No dysuria, No hematuria Musculoskeletal: back pain (chronic) Skin: No rash, No ulcerations Psychiatric/Neurological: No seizure, No focal weakness, No syncope Hematologic: No bleeding abnormalities ELU-Pifcxi-Ebblmz Hx Patient Social History Smoking Status: Former Smoker 2nd Hand Smoke Exposure: No Have you traveled recently?: No Alcohol Use?: No Pt feels they are or have been: No Tobacco type used: Cigarettes Immunizations Up To Date Date of Pneumonia Vaccine: Oct 26, 2017 Date of Influenza Vaccine: Aug 26, 2019 Past Medical History PMH As described under Assessment. Family Medical History Family Medical History: Does not report fam h/o early CAD Allergies and Home Medications Allergies Coded Allergies: No Known Drug Allergies (Unverified , 11/10/19) Patient Home Medication List Home Medication List Reviewed: Yes Albuterol Sulfate (Proventil Hfa) 6.7 Gm Hfa.aer.ad, 2 PUFF INH Q4H PRN for SHORTNESS OF BREATH, (Reported) Entered as Reported by: GELA DIEGO on 08/02/22 1045 Last Action: Continued Aspirin (Aspirin) 325 Mg Tablet, 325 MG PO DAILY, (Reported) Entered as Reported by: GELA DIEGO on 08/02/22 1045 Last Action: Continued Calcium Carbonate/Vitamin D3 (Calcium + Vitamin D Tablet) 600 Mg Calcium-5 Mcg (200 Unit) Tablet, 1 EA PO DAILY, (Reported) Entered as Reported by: GELA DIEGO on 08/02/221044 Last Action: Converted Cetirizine HCl (Cetirizine HCl) 10 Mg Tablet, 10 MG PO DAILY, (Reported) Entered as Reported by: GELA DIEGO on 08/02/221044 Last Action: Continued Famotidine (Famotidine) 20 Mg Tablet, 20 MG PO DAILY, (Reported) Entered as Reported by: GELA DIEGO on 08/02/221154 Last Action: Continued Fluticasone Propionate (Flonase Allergy Relief) 50 Mcg/Actuation [place].susp, 1-2 SPRAY NSEACH DAILY PRN for CONGESTION, (Reported) Entered as Reported by: GELA DIEGO on 08/02/221046 Last Action: Converted Fluticasone/Umeclidin/Vilanter (Trelegy Ellipta 100-62.5-25) 100-62.5 Blst.w.dev, 1 PUFF INH DAILY, (Reported) Entered as Reported by: GELA DIEGO on 08/02/221044 Last Action: Converted Furosemide (Furosemide) 20 Mg Tablet, 20-40 MG PO DAILY PRN for FLUID RETENTION, (Reported) Entered as Reported by: GELA DIEGO on 08/02/221044 Last Action: Continued Guaifenesin (Mucinex) 600 Mg Tab.er.12h, 600 MG PO BID, (Reported) Entered as Reported by: AMADO DIAS on 11/13/19 0901 Last Action: Continued Ipratropium/Albuterol Sulfate (Iprat-Albut 0.5-3(2.5) mg/3 ml) 0.5 Mg-3 Mg (2.5 Mg Base)/3 Ml Ampul.neb, 3 ML IH Q6H, (Reported) Entered as Reported by: GELA DIEGO on 08/02/221044 Last Action: Held Levothyroxine Sodium (Levothyroxine Sodium) 50 Mcg Tablet, 50 MCG PO DAILY, (Reported) Entered as Reported by: GELA DIEGO on 08/02/221044 Last Action: Continued Lisinopril (Lisinopril) 10 Mg Tablet, 10 MG PO DAILY, (Reported) Entered as Reported by: GELA DIEGO on 08/02/221044 Last Action: Continued Lorazepam (Ativan) 0.5 Mg Tablet, 0.5 MG PO DAILY PRN for ANXIETY, (Reported) Entered as Reported by: GELA DIEGO on 08/02/221044 Last Action: Continued Montelukast Sodium (Montelukast Sodium) 10 Mg Tablet, 10 MG PO DAILY, (Reported) Entered as Reported by: AMADO DIAS on 11/13/19899 Last Action: Continued Multivits-Min/Iron/FA/Lutein (Centrum Silver Women Tablet) 8 Mg Iron-400 Mcg-300 Mcg Tablet, 1 EACH PO DAILY, (Reported) Entered as Reported by: GELA DIEGO on 08/02/22 104 Last Action: Converted Discontinued Medications Albuterol Sulfate (Albuterol Sulfate) 2.5 Mg/3 Ml Vial.neb, 2.5 MG NEB Q6H PRN for SHORTNESS OF BREATH, (Reported) Discontinued Reason: Duplicate Order Entered as Reported by: AMADO DIAS on 11/13/19899 Last Action: Discontinued Albuterol Sulfate (Proair Hfa) 1 Puff Puff, 2 PUFF IH Q4H PRN for WHEEZING Discontinued Reason: Duplicate Order Prescribed by: DELANO PRITCHETT on 11/18/19 1151 Last Action: Discontinued Alendronate Sodium (Fosamax) 70 Mg Tablet, 70 MG PO WEEK, (Reported) Discontinued Reason: No Longer Taking Entered as Reported by: GELA DIEGO on 08/02/221044 Last Action: Discontinued Budesonide/Formoterol Fumarate (Symbicort 160-4.5 Mcg Inhaler) 10.2 Gm Hfa. aer.ad, 2 PUFF INH BID, (Reported) Discontinued Reason: Duplicate Order Entered as Reported by: AMADO DIAS on 11/13/19899 Last Action: Discontinued Cetirizine HCl (Zyrtec) 10 Mg Tablet, 10 MG PO DAILY PRN for ALLERGIES, (Reported) Discontinued Reason: Duplicate Order Entered as Reported by: AMADO DIAS on 11/13/19902 Last Action: Discontinued Ipratropium/Albuterol Sulfate (Iprat-Albut 0.5-3(2.5) mg/3 ml) 3 Ml Ampul.neb, 3 ML INH Q4H PRN for WHEEZING Discontinued Reason: Duplicate Order Prescribed by: DELANO PRITCHETT on 11/18/19 115 Last Action: Discontinued Pantoprazole Sodium (Pantoprazole Sodium) 20 Mg Tablet.dr, 20 MG PO DAILY Discontinued Reason: Duplicate Order Prescribed by: DELANO PRITCHETT on 11/18/19 115 Last Action: Discontinued [Hip kit] , EACH, (DME) Discontinued Reason: Duplicate Order Prescribed by: DELANO PRITCHETT on 11/18/19 1212 Last Action: Discontinued [shower chair] , (DME) Discontinued Reason: Duplicate Order Prescribed by: DELANO PRITCHETT on 11/18/19 121 Last Action: Discontinued Physical Exam-Cardiology Physical Exam Vital Signs/I&O 08/02/22 08/02/22 08/02/22 08/02/22 05:00 06:00 06:40 07:00 Pulse 83 74 73 78 Resp 21 22 18 23 B/P (MAP) 148/66 (99) 102/59 (65) 137/60 (85) Pulse Ox 98 99 99 99 O2 Delivery NIV Bilevel NIV Bilevel Vapotherm O2 Flow Rate 40.00 40.00 30.00 5.00 60.00 08/02/22 08/02/22 08/02/22 08/02/22 07:34 07:45 08:00 08:00 Temp 36.4 Pulse 82 83 Resp 26 B/P (MAP) 108/79 (89) Pulse Ox 98 O2 Delivery Vapotherm Vapotherm O2 Flow Rate 5.00 60.00 FiO2 60 08/02/22 08/02/22 08/02/22 08/02/22 09:00 10:00 10:41 11:00 Pulse 93 92 86 Resp 35 17 27 B/P (MAP) 157/70 (99) 161/89 (113) 135/107 (116) Pulse Ox 96 96 96 98 O2 Delivery Vapotherm Vapotherm Vapotherm Vapotherm O2 Flow Rate 5.00 5.00 5.00 5.00 60.00 60.00 60.00 FiO2 60 08/02/22 08/02/22 08/02/22 08/02/22 12:00 12:16 13:00 13:23 Pulse 94 100 98 Resp 16 11 B/P (MAP) 171/87 (115) 185/90 (121) Pulse Ox 98 98 O2 Delivery Vapotherm Vapotherm Vapotherm O2 Flow Rate 5.00 5.00 60.00 60.00 FiO2 60 08/02/22 08/02/22 08/02/22 14:00 14:33 15:00 Pulse 100 92 Resp 17 25 B/P (MAP) 155/86 (109) 173/101 (125) Pulse Ox 96 96 95 O2 Delivery Vapotherm Vapotherm Vapotherm O2 Flow Rate 5.00 5.00 5.00 60.00 60.00 FiO2 60 08/02/22 00:00 Intake Total 150 ml Balance 150 ml Capillary Refill : Less Than 3 Seconds Constitutional: AAO x 3, other (thin and cachectic appearing) HEENT: PERRL, EOMI Neck: carotid pulses are 2 + bilaterally Respiratory: other (hyperresonant lungs, diminished air entry, prolonged exp phase) Cardiovascular: regular rate-rhythm, S1 and S2, systolic murmur (soft LEVON at card base) Gastrointestinal: No tender; soft; No guarding, No rebound; audible bowel sounds Extremities: No clubbing, No cyanosis, No significant edema Neurologic/Psychiatric: other (moves all limbs equally) Skin: warm/dry; No cyanosis Data Review Labs Laboratory Tests 08/01/22 16:15: White Blood Count 11.2H, Red Blood Count 4.60, Hemoglobin 13.5, Hematocrit 42, Mean Corpuscular Volume 90, Mean Corpuscular Hemoglobin 29, Mean Corpuscular Hemoglobin Concent 33, Red Cell Distribution Width 13.0, Platelet Count 411H, Mean Platelet Volume 10.2, Immature Granulocyte % (Auto) 0, Neutrophils (%) (Auto) 70, Lymphocytes (%) (Auto) 20, Monocytes (%) (Auto) 8, Eosinophils (%) (Auto) 2, Basophils (%) (Auto) 0, Neutrophils # (Auto) 7.8, Lymphocytes # (Auto) 2.2, Monocytes # (Auto) 0.9, Eosinophils # (Auto) 0.2, Basophils # (Auto) 0.0, Immature Granulocyte # (Auto) 0.0, Prothrombin Time 12.8, INR Comment 0.9, Activated Partial Thromboplast Time 28, D-Dimer 0.32, Sodium Level 138, Potassium Level 4.9, Chloride Level 95L, Carbon Dioxide Level 30, Anion Gap 13, Blood Urea Nitrogen 23H, Creatinine 0.54L, Estimat Glomerular Filtration Rate 95, BUN/Creatinine Ratio 43, Glucose Level 160H, Lactic Acid Level 2.11*H, Calcium Level 9.9, Corrected Calcium , Magnesium Level 1.9, Total Bilirubin 0.3, Aspartate Amino Transf (AST/SGOT) 25, Alanine Aminotransferase (ALT/SGPT) 22, Alkaline Phosphatase 126, Troponin I < 0.30, Pro-B-Type Natriuretic Peptide 168.6, Total Protein 7.6, Albumin 4.6H, Influenza Type A (RT-PCR) Not Detected, Influenza Type B (RT-PCR) Not Detected, SARS-CoV-2 RNA (RT-PCR) Not Detected 08/01/22 17:15: Urine Color YELLOW, Urine Clarity SL CLOUDY, Urine pH 6.0, Urine Specific [place] 1.025H, Urine Protein NEGATIVE, Urine Glucose (UA) NEGATIVE, Urine Ketones NEGATIVE, Urine Nitrite NEGATIVE, Urine Bilirubin NEGATIVE, Urine Urobilinogen 0.2, Urine Leukocyte Esterase NEGATIVE, Urine RBC (Auto) NEGATIVE, Urine RBC NONE, Urine WBC 0-2, Urine Squamous Epithelial Cells RARE, Urine Crystals NONE, Urine Bacteria NEGATIVE, Urine Casts PRESENT, Urine Hyaline Casts 10-25H, Urine Granular Casts 0-2H, Urine Mucus NEGATIVE, Urine Culture Indicated NO, Urine Opiates Screen NEGATIVE, Urine Oxycodone Screen NEGATIVE, Urine Methadone Screen NEGATIVE, Urine Propoxyphene Screen NEGATIVE, Urine Barbiturates Screen NEGATIVE, Ur Tricyclic Antidepressants Screen NEGATIVE, Urine Phencyclidine Screen NEGATIVE, Urine Amphetamines Screen NEGATIVE, Urine Methamphetamines Screen NEGATIVE, Urine Benzodiazepines Screen NEGATIVE, Urine Cocaine Screen NEGATIVE, Urine Cannabinoids Screen NEGATIVE 08/01/22 19:25: Lactic Acid Level 1.01 08/01/22 22:25: Troponin I < 0.028 08/02/22 04:38: White Blood Count 6.9, Red Blood Count 4.16, Hemoglobin 12.1, Hematocrit 38, Mean Corpuscular Volume 91, Mean Corpuscular Hemoglobin 29, Mean Corpuscular Hemoglobin Concent 32, Red Cell Distribution Width 13.0, Platelet Count 390, Nancy n Platelet Volume 10.3, Immature Granulocyte % (Auto) 1, Neutrophils (%) (Auto) 92H, Lymphocytes (%) (Auto) 7L, Monocytes (%) (Auto) 0, Eosinophils (%) (Auto) 0, Basophils (%) (Auto) 0, Neutrophils # (Auto) 6.3, Lymphocytes # (Auto) 0.5L, Monocytes # (Auto) 0.0, Eosinophils # (Auto) 0.0, Basophils # (Auto) 0.0, Immature Granulocyte # (Auto) 0.0, Sodium Level 140, Potassium Level 4.7, Chloride Level 98, Carbon Dioxide Level 26, Anion Gap 16H, Blood Urea Nitrogen 35H, Creatinine 0.79, Estimat Glomerular Filtration Rate 77, BUN/Creatinine Ratio 44, Glucose Level 334H, Calcium Level 9.3, Corrected Calcium 9.2, Phosphorus Level 3.2, Magnesium Level 2.0, Total Bilirubin 0.2, Aspartate Amino Transf (AST/SGOT) 22, Alanine Aminotransferase (ALT/SGPT) 22, Alkaline Phosphata se 110, Total Protein 7.1, Albumin 4.1 08/02/22 05:28: Glucometer 287H 08/02/22 06:16: Blood Gas Puncture Site RIGHT RADIAL, Blood Gas Patient Temperature 37.2, Arterial Blood pH 7.36L, Arterial Blood Partial Pressure CO2 57H, Arterial Blood Partial Pressure O2 91, Arterial Blood HCO3 32H, Arterial Blood Total CO2 33.2H, Arterial Blood Oxygen Saturation 98, Arterial Blood Base Excess 6.3H, Deven Test YES-POS, Blood Gas Ventilator Setting NO, Blood Gas Inspired Oxygen 30% 08/02/22 10:25: Glucometer 205H Laboratory Tests 08/01/22 16:15 08/02/22 04:38 A/P-Cardiology Assessment/Admission Diagnosis Acute exac of advanced COPD - Dr Brar managing Hyperglycemia - Dr Brar managing H/o intermittent, nonspecific chest discomfort, currently stable - MPI of 01/04/21: no ischemia or infarction, LVEF 61% Palpitations - Holter of 01/04/21: NSR, PACs and PVCs, a few runs of SVT (up to 4 beats at rates up to 160 bpm) - ILR offered - not agreeable at time of office visit on 04-06-22 COPD - managed by PCP and by her preparation operator Previous h/o tobaccoism - Quit Pulmonary hypertension, probably related to pulmonary disease - Echocardiogram of Nov 06, [address] Angel showed LVEF 55-65%. grade 1 diastolic dysfunction. LA mildly dilated. Mod TR. PASP 65-70 mmHg. Dilated inferior vena cava. - Echocardiogram of 09-05-21 showed LVEF 50-55%. LA dilated. Mild to mod TR. PA SP 30-35 mmHg Carotid dz - Moderate, bilateral carotid arterial disease w/o evidence of hemodynamic significance on carotid u/s of 12/02/20 Discussion and Recomendations * Advised to continue to avoid tobacco use * Dr Brar managing COPD and hyperglycemia * Monitor labs FLAKITA GUZMÁN MD [facility] CCDS Aug 02, 2022 16:06
[2022-08-02] MEDS: lisINopril 10 MG (PRINIVIL) TABLET PO SCH (18:20)
[2022-08-02 20:22] VITALS: BP 176/59
[2022-08-02] MEDS: guaiFENesin (MUCINEX) 600 MG TAB PO SCH (21:20)
[2022-08-03] MEDS: methylPREDNISolone 125 MG (Solu-MEDROL) VIAL IV SCH ×2 (00:03→06:57)
[2022-08-03] MEDS: LORazepam 0.5 MG (ATIVAN) TABLET PO PRN ×2 (01:53→21:01)
[2022-08-03 03:03] VITALS: BP 106/57
[2022-08-03] MEDS: RT--FLUTICASONE/SALMETEROL 232-14 (AIRDUO RespiCLICK) IH SCH ×3 (03:03→22:32)
[2022-08-03] MEDS: RT-ALBUTEROL/IPRATROPIUM 3 ML (DUONEB) VIAL INH SCH ×6 (03:05→22:32)
[2022-08-03] MEDS: CEFEPIME 1,000 MG/NS 50 ML IVPB IV SCH ×6 (04:40→21:01)
[2022-08-03 04:48] LABS: BASOPHILS % (AUTO) 0 % (0-10); EOSINOPHILS % (AUTO) 0 % (0-10); HEMATOCRIT 37 % (35-52); HEMOGLOBIN 11.9 g/dL (11.5-16.0); LYMPHOCYTES % (AUTO) 6 % (12-44); MEAN CORPUSCULAR HEMOGLOBIN 29 pg (25-34); MEAN CORPUSCULAR HGB CONC 32 g/dL (32-36); MEAN CORPUSCULAR VOLUME 90 fL (80-99); MEAN PLATELET VOLUME 10.2 fL (9.0-12.2); MONOCYTES # (AUTO) 0.4 10^3/uL (0.0-1.0); MONOCYTES % (AUTO) 2 % (0-12); NEUTROPHILS # (AUTO) 14.7 10^3/uL (1.8-7.8); NEUTROPHILS % (AUTO) 91 % (42-75); PLATELET COUNT 366 10^3/uL (130-400); WHITE BLOOD COUNT 16.1 10^3/uL (4.3-11.0)
[2022-08-03 05:00] LABS: ALBUMIN 4.1 GM/DL (3.2-4.5); POTASSIUM 4.3 MMOL/L (3.6-5.0)
[2022-08-03 05:01] LABS: CALCIUM 9.8 MG/DL (8.5-10.1)
[2022-08-03 05:04] LABS: BILIRUBIN,TOTAL 0.4 MG/DL (0.1-1.0)
[2022-08-03 05:06] LABS: CREATININE SERUM 0.68 MG/DL (0.60-1.30)
[2022-08-03 05:09] LABS: MAGNESIUM 2.1 MG/DL (1.6-2.4)
[2022-08-03 05:13] LABS: BAND NEUTROPHILS 0 %; BASOPHILS % (MANUAL) 0 %; EOSINOPHILS % (MANUAL) 0 %; LYMPHOCYTES % (MANUAL) 9 %; MONOCYTES % (MANUAL) 1 %; NEUTROPHILS % (MANUAL) 90 %; TOXIC GRANULATION/VACUOLAZATIO 1+
[2022-08-03] MEDS: inSUlin ASPART (NovoLOG) 1 UNIT/0.01 ML (CHARGE PER UNIT) SC SCH ×4 (06:00→20:21)
[2022-08-03] MEDS: LEVOTHYROXINE 50 MCG (LEVOTHROID) TAB PO SCH (06:57)
[2022-08-03 07:25] VITALS: BP 145/68
--- NOTE | 2022-08-03 07:39 | Progress Note - Cardiology ---
Cardiology SOAP Progress Note Subjective: On BiPAP today Feels better No cp or palp or syncope No n/v/d No focal weakness Objective: I&O/Vital Signs 08/02/22 08/02/22 08/02/22 08/02/22 20:00 20:00 20:00 20:22 Temp 36.3 Pulse 92 86 Resp 28 18 B/P (MAP) 176/89 (120) Pulse Ox 98 95 O2 Delivery NIV Bilevel NIV Bilevel O2 Flow Rate 30.00 30.00 FiO2 30 08/02/22 08/02/22 08/02/22 08/02/22 21:00 22:00 23:00 23:59 Pulse 71 62 67 Resp 24 19 23 B/P (MAP) 135/82 (93) 126/56 (82) 141/78 (106) Pulse Ox 97 98 98 O2 Delivery NIV Bilevel NIV Bilevel NIV Bilevel NIV Bilevel O2 Flow Rate 30.00 30.00 30.00 FiO2 30 08/03/22 08/03/22 08/03/22 08/03/22 00:00 01:00 01:00 02:00 Pulse 59 62 62 73 Resp 18 18 27 B/P (MAP) 125/57 (79) 123/68 (91) 140/71 (86) Pulse Ox 98 98 98 O2 Delivery NIV Bilevel NIV Bilevel NIV Bilevel O2 Flow Rate 30.00 30.00 30.00 08/03/22 08/03/22 08/03/22 08/03/22 03:00 03:03 04:00 04:00 Pulse 48 58 64 Resp 18 18 25 B/P (MAP) 106/57 (71) 172/75 (94) Pulse Ox 97 98 95 O2 Delivery NIV Bilevel NIV Bilevel NIV Bilevel O2 Flow Rate 30.00 30.00 30.00 FiO2 30 08/03/22 08/03/22 08/03/22 05:00 06:00 07:25 Pulse 63 57 58 Resp 20 18 16 B/P (MAP) 129/64 (86) 148/67 (99) Pulse Ox 100 98 98 O2 Delivery NIV Bilevel NIV Bilevel O2 Flow Rate 30.00 30.00 25.00 08/03/22 00:00 Intake Total 810 ml Output Total 1125 ml Balance -315 ml Constitutional: AAO x 3, other Respiratory: other Cardiovascular: regular rate-rhythm, S1 and S2, systolic murmur Gastrointestional: soft, audible bowel sounds Extremities: No clubbing, No cyanosis, No significant edema Neurologic/Psychiatric: other Skin: warm/dry Results/Procedures: Labs Laboratory Tests 08/02/22 10:25: Glucometer 205H 08/02/22 16:14: Glucometer 97 08/02/22 20:37: Glucometer 144H 08/03/22 04:30: White Blood Count 16.1H, Red Blood Count 4.08, Hemoglobin 11.9, Hematocrit 37, Mean Corpuscular Volume 90, Mean Corpuscular Hemoglobin 29, Mean Corpuscular Hemoglobin Concent 32, Red Cell Distribution Width 13.1, Platelet Count 366, Mean Platelet Volume 10.2, Immature Granulocyte % (Auto) 1, Neutrophils (%) (Auto) 91H, Lymphocytes (%) (Auto) 6L, Monocytes (%) (Auto) 2, Eosinophils (%) (Auto) 0, Basophils (%) (Auto) 0, Neutrophils # (Auto) 14.7H, Lymphocytes # (Auto) 1.0, Monocytes # (Auto) 0.4, Eosinophils # (Auto) 0.0, Basophils # (Auto) 0.0, Immature Granulocyte # (Auto) 0.1, Neutrophils % (Manual) 90, Lymphocytes % (Manual) 9, Monocytes % (Manual) 1, Eosinophils % (Manual) 0, Basophils % (Manual) 0, Band Neutrophils 0, Toxic Granulation 1+, Sodium Level 141, Potassium Level 4.3, Chloride Level 100, Carbon Dioxide Level 29, Anion Gap 12, Blood Urea Nitrogen 25H, Creatinine 0.68, Estimat Glomerular Filtration Rate 90, BUN/Creatinine Ratio 37, Glucose Level 87, Calcium Level 9.8, Corrected Calcium 9.7, Magnesium Level 2.1, Total Bilirubin 0.4, Aspartate Amino Transf (AST/SGOT) 24, Alanine Aminotransferase (ALT/SGPT) 21, Alkaline Phosphatase 85, Total Protein 7.0, Albumin 4.1 08/03/22 04:55: Bedside Blood Gas pH (LAB) 7.437H, Bedside Blood Gas pCO2 (LAB) 47.7, Bedside Blood Gas pO2 (LAB) 109H, Bedside Blood Gas HCO3 (LAB) 32.2H, POC Blood Gas Total CO2 Calc 34H, Bedside Bl Gas O2 Saturation (Calc) 98, Bedside Arterial Blood Base Excess 8H 08/03/22 06:10: Glucometer 83 Laboratory Tests 08/01/22 16:15 08/02/22 04:38 08/03/22 04:30 A/P: Assessment: Acute exac of advanced COPD - Dr Brar managing Hyperglycemia - Dr Brar managing H/o intermittent, nonspecific chest discomfort, currently stable - MPI of 01/04/21: no ischemia or infarction, LVEF 61% Palpitations - Holter of 01/04/21: NSR, PACs and PVCs, a few runs of SVT (up to 4 beats at rates up to 160 bpm) - ILR offered - not agreeable at time of office visit on 04-06-22 COPD - managed by PCP and by her form setter/driver Previous h/o tobaccoism - Quit Pulmonary hypertension, probably related to pulmonary disease - Echocardiogram of Nov 06, [address] nAgel showed LVEF 55-65%. grade 1 diastolic dysfunction. LA mildly dilated. Mod TR. PASP 65-70 mmHg. Dilated inferior vena cava. - Echocardiogram of 09-05-21 showed LVEF 50-55%. LA dilated. Mild to mod TR. PASP 30-35 mmHg Carotid dz - Moderate, bilateral carotid arterial disease w/o evidence of hemodynamic significance on carotid u/s of 12/02/20 Plan: * Advised to continue to avoid tobacco use * Dr Brar managing COPD and hyperglycemia * Monitor labs FLAKITA GUZMÁN MD FACP [facility] CCDS Aug 03, 2022 07:39
[2022-08-03] MEDS: DOCUSATE SODIUM 100 MG (COLACE) CAP PO SCH ×2 (09:00→20:53)
[2022-08-03] MEDS ORDERED: NON-FORMULARY MEDICATION 1 EA EA (Multivits-Min/Iron/FA/Lutein (Centrum Silver Women Table PO SCH (09:00)
[2022-08-03] MEDS ORDERED: lisINopril 10 MG (PRINIVIL) TABLET PO SCH (09:00)
[2022-08-03] MEDS ORDERED: NON-FORMULARY MEDICATION 1 EA EA (Fluticasone/Umeclidin/Vilanter (Trelegy Ellipta 100-62.5 INH SCH (09:00)
[2022-08-03] MEDS ORDERED: CETIRIZINE HCL (ZYRTEC) 10 MG TAB PO SCH (09:00)
[2022-08-03] MEDS: FAMOTIDINE 20 MG (PEPCID) TABLET PO SCH (09:10)
[2022-08-03] MEDS: MONTELUKAST 10 MG (SINGULAIR) TAB PO SCH (09:10)
[2022-08-03] MEDS: MULTIVIT W/MINERALS TAB (THERAGRAN M) PO SCH (09:11)
[2022-08-03] MEDS: ASPIRIN 325 MG (5 GR) TABLET PO SCH (09:11)
[2022-08-03] MEDS: LORATADINE (CLARITIN) 10 MG TAB PO SCH (09:11)
[2022-08-03] MEDS: ENOXAPARIN INJECTION 30 MG/0.3 ML SYR SC SCH (09:11)
[2022-08-03] MEDS: lisINopril 10 MG (PRINIVIL) TABLET PO SCH (09:11)
[2022-08-03] MEDS: guaiFENesin (MUCINEX) 600 MG TAB PO SCH ×2 (09:11→20:53)
[2022-08-03] MEDS: CALCIUM CARB + VIT D 600 MG (CALCARB + D) TAB PO SCH (09:12)
--- NOTE | 2022-08-03 09:58 | Tele-ICU Progress Note ---
Subjective Date Seen by a Provider: Aug 03, 2022 Time Seen by a Provider: 09:57 Subjective/Events-last exam (Tele-ICU Physician , Progress Note ) Available chart/ vitals / labs / Images reviewed Video assessment done using teleICU camera, rest of exam as per RN Discussed with RN Events overnight : Afebrile hemodynamically stable Respiratory - I/O = neg 500 Drips: Pressors- no Consultants: Hospital course: A/P Acute on chronic hypoxix and hypercarbic resp failure ( AECOPD, CTCh 08/01 - no PE or PNA - will alternate NIPPV 13/07 30%$ with VT 60% 5L - 3h on/3h off , keep NIPPV at night - on VT - cont to wean down o2 AECOPD - as per notes - was tx with steroids [employer]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 Discussed with RN to reach out if any questions or concerns Sepsis Event Evaluation Height, Weight, BMI Height: '" Weight: lbs. oz. kg; 16.41 BMI Method: Focused Exam Lactate Level 08/01/22 16:15: Lactic Acid Level 2.11*H 08/01/22 19:25: Lactic Acid Level 1.01 Exam Exam Patient acknowledged, consented, and participated in this virtual visit which was conducted using real time audio/video Vital Signs Date Time Temp Pulse Resp B/P (MAP) Pulse Ox O2 Delivery O2 Flow Rate FiO2 08/03/22 09:31 Vapotherm 5.00 60.00 08/03/22 09:00 70 20 133/62 (85) 96 NIV Bilevel 30.00 08/03/22 08:13 36.0 08/03/22 08:00 58 17 134/91 (105) 96 NIV Bilevel 30.00 08/03/22 07:25 58 16 98 25.00 08/03/22 07:00 73 18 145/68 (93) 98 NIV Bilevel 30.00 08/03/22 07:00 64 08/03/22 06:00 57 18 148/67 (99) 98 NIV Bilevel 30.00 08/03/22 05:00 63 20 129/64 (86) 100 NIV Bilevel 30.00 08/03/22 04:00 NIV Bilevel 30 08/03/22 04:00 64 25 172/75 (94) 95 NIV Bilevel 30.00 08/03/22 03:03 58 18 98 30.00 08/03/22 03:00 48 18 106/57 (71) 97 NIV Bilevel 30.00 08/03/22 02:00 73 27 140/71 (86) 98 NIV Bilevel 30.00 08/03/22 01:00 62 18 123/68 (91) 98 NIV Bilevel 30.00 08/03/22 01:00 62 08/03/22 00:00 59 18 125/57 (79) 98 NIV Bilevel 30.00 08/02/22 23:59 NIV Bilevel 30 08/02/22 23:00 67 23 141/78 (106) 98 NIV Bilevel 30.00 08/02/22 22:00 62 19 126/56 (82) 98 NIV Bilevel 30.00 08/02/22 21:00 71 24 135/82 (93) 97 NIV Bilevel 30.00 08/02/22 20:22 86 18 95 30.00 08/02/22 20:00 92 28 176/89 (120) 98 NIV Bilevel 30.00 08/02/22 20:00 NIV Bilevel 30 08/02/22 20:00 36.3 08/02/22 19:06 87 25 153/106 (114) 95 NIV Bilevel 30.00 08/02/22 19:00 94 08/02/22 19:00 94 40 136/120 (126) 93 NIV Bilevel 30.00 08/02/22 17:00 66 18 137/75 (95) 99 NIV Bilevel 40.00 08/02/22 16:25 NIV Bilevel 60 08/02/22 16:00 36.3 08/02/22 16:00 69 24 158/71 (100) 98 NIV Bilevel 40.00 08/02/22 15:15 NIV Bilevel 40.00 08/02/22 15:00 92 25 173/101 (125) 95 Vapotherm 5.00 60.00 08/02/22 14:33 96 Vapotherm 5.00 60 08/02/22 14:00 100 17 155/86 (109) 96 Vapotherm 5.00 60.00 08/02/22 13:23 98 08/02/22 13:00 100 11 185/90 (121) 98 Vapotherm 5.00 60.00 08/02/22 12:16 Vapotherm 60 08/02/22 12:00 94 16 171/87 (115) 98 Vapotherm 5.00 60.00 08/02/22 11:00 86 27 135/107 (116) 98 Vapotherm 5.00 60.00 08/02/22 10:41 96 Vapotherm 5.00 60 08/02/22 10:00 92 17 161/89 (113) 96 Vapotherm 5.00 60.00 I & O 08/03/22 07:00 Intake Total 1240 ml Output Total 1750 ml Balance -510 ml Height & Weight Height: '" Weight: lbs. oz. kg; 16.41 BMI Method: General Appearance: Chronically ill, Cachetic, Moderate Distress HEENT: Moist Mucous Membranes Neck: Non Tender, Supple Respiratory: Accessory Muscle Use, Crackles, Rales, Respiratory Distress, Wheezing Cardiovascular: Regular Rate, Rhythm, No Edema, No Gallop, No JVD, No Murmur, Normal Peripheral Pulses Capillary Refill: Less Than 3 Seconds Gastrointestinal: normal bowel sounds, non tender, soft Extremity: No Calf Tenderness, No Pedal Edema Neurologic/Psychiatric: Alert, Oriented x3, No Motor/Sensory Deficits, Normal Mood/Affect Skin: Normal Color, Warm/Dry Lymphatic: No Adenopathy Results Lab Laboratory Tests 08/01/22 16:15 08/02/22 04:38 08/03/22 04:30 Assessment/Plan Assessment/Plan 1 JAYNA FITCH MD Aug 03, 2022 09:58
--- NOTE | 2022-08-03 10:14 | Physical Therapy Daily Note ---
PT Daily Note-Current Subjective Patient agrees to PT. Currently on BiPap due to inability to maintain SAO2 >90% on Vapotherm Mental Status Patient Orientation: Normal For Age Attachments: Oxygen (Bipap) Transfers SCALE: Activities may be completed with or without assistive devices. 5-Jdvvtnemsq-pqyawmr completes the activity by him/herself with no assistance from a helper. 5-Set-up or Clean-up Assistance-helper sets up or cleans up; patient completes activity. [place] assists only prior to or following the activity. 4-Supervision or Touching Assistance-helper provides verbal cues and/or touching/steadying and/or contact guard assistance as patient completes activity. Assistance may be provided throughout the activity or intermittently. 3-Partial/Moderate Assistance-helper does LESS THAN HALF the effort. [place] lifts, holds or supports trunk or limbs, but provides less than half the effort. 2-Substantial/Maximal Assistance-helper does MORE THAN HALF the effort. [place] lifts or holds trunk or limbs and provides more than half the effort. 3-Lsursfojy-igmqjq does ALL the effort. Patient does none of the effort to complete the activity. Or, the assistance of 2 or more helpers is required for the patient to complete the activity. If activity was not attempted, code reason: 7-Patient Refused. 9-Not Applicable-not attempted and the patient did not perform the activity before the current illness, exacerbation or injury. 10-Not Attempted due to Environmental Limitations-(lack of equipment, weather restraints, etc.). 88-Not Attempted due to Medical Conditions or Safety Concerns. Lying to Sitting/Side of Bed(Q: 4 Sit to Stand (QC): 4 Chair/Vjl-nl-Xsjhn Xfer(QC): 4 Exercises Seated Therapy Exercises: Ankle pumps, Long arc quads Seated Reps: 12 Assessment Patient's SAO2 decreased to low 80's with minimal activity on BiPap. RN is made aware. PT to increase activity as tolerated by patient. PT Senior Care Goals Senior Care Goals PT Cellar Packer Goals Time Frame: Aug 09, 2022 Roll Left & Right (QC): 6 Sit to Lying (QC): 6 Lying-Sitting on Side/Bed(QC): 6 Sit to Stand (QC): 6 Chair/Dgm-gm-Yukxl Xfer(QC): 6 Walk 10 feet (QC): 6 Walk 50ft with 2 Turns (QC): 6 PT Plan Treatment/Plan Treatment Plan: Continue Plan of Care Treatment Plan: Bed Mobility, Education, Functional Activity Julienne, Functional Strength, Gait, Safety, Therapeutic Exercise, Transfers Treatment Duration: Aug 09, 2022 Frequency: 6 times per week Estimated Hrs Per Day: .25 hour per day Patient and/or Family Agrees t: Yes Time/GCodes Time In: 754 Time Out: 807 Total Billed Treatment Time: 13 Total Billed Treatment 1 visit FA 13 min EVI AMBROCIO PT Aug 03, 2022 10:14
[2022-08-03 11:11] VITALS: BP 129/54
[2022-08-03] MEDS: UMECLIDINIUM BROMIDE (INCRUSE ELLIPTA) 7'S IH SCH (11:13)
--- NOTE | 2022-08-03 11:42 | Occupational Ther Daily Note ---
OT Current Status-Daily Note Subjective Pt alert sitting in recliner. Pt agrees to therapy. Pt has no c/o pain at this time. Mental Status/Objective Patient Orientation: Person, Place, Time, Situation ADL-Treatment Therapy Code Descriptions/Definitions Functional [place] Measure: 0=Not Assessed/NA 4=Minimal Assistance 1=Total Assistance 5=Supervision or Setup 2=Maximal Assistance 6=Modified [place] 3=Moderate Assistance 7=Complete IndependenceSCALE: Activities may be completed with or without assistive devices. 9-Zzipsstzsl-eijrtty completes the activity by him/herself with no assistance from a helper. 5-Set-up or Clean-up Assistance-helper sets up or cleans up; patient completes activity. [place] assists only prior to or following the activity. 4-Supervision or Touching Assistance-helper provides verbal cues and/or to uching/steadying and/or contact guard assistance as patient completes activity. Assistance may be provided throughout the activity or intermittently. 3-Partial/Moderate Assistance-helper does LESS THAN HALF the effort. [place] lifts, holds or supports trunk or limbs, but provides less than half the effort. 2-Substantial/Maximal Assistance-helper does MORE THAN HALF the effort. [place] lifts or holds trunk or limbs and provides more than half the effort. 1-Dtjdhxwdp-bxtdft does ALL the effort. Patient does none of the effort to complete the activity. Or, the assistance of 2 or more helpers is required for the patient to complete the activity. If activity was not attempted, code reason: 7-Patient Refused. 9-Not Applicable-not attempted and the patient did not perform the activity before the current illness, exacerbation or injury. 10-Not Attempted due to Environmental Limitations-(lack of equipment, weather restraints, etc.). 88-Not Attempted due to Medical Conditions or Safety Concerns. Pt completed 5 B UE exercises, against gravity, 1 set 10 reps with ~20-30 seconds between sets to allow oxygen recovery. Pt SOA throughout exercises and required verbal cues to for PLB to increase O2 sats. Pt sitting in recliner call light in reach. All needs met in room. Education OT Patient Education: Exercise program, Other (PLB) Teaching Recipient: Patient Teaching Methods: Demonstration, Discussion Response to Teaching: Verbalize Understanding, Return Demonstration, Reinforcement Needed OT [facility] Goals Silk Blocker Goals Time Frame: Aug 23, 2022 Eating (QC): 5 Oral Hygiene (QC): 5 Toileting Hygiene (QC): 4 Shower/Bathe Self (QC): 4 Upper Body Dressing (QC): 4 Lower Body Dressing (QC): 4 On/Off Footwear (QC): 5 Additional Goals: 1-Demonstrate ADL Tasks, 2-Verbalize Understanding, 3- ImproveStrength/Julienne 1=Demonstrate adherence to instructed precautions during ADL tasks. 2=Patient will verbalize/demonstrate understanding of assistive devices/m odifications for ADL. 3=Patient will improve strength/tolerance for activity to enable patient to perform ADL's. OT Education/Plan Problem List/Assessment Assessment: Decreased Activ Tolerance, Decreased UE Strength Discharge Recommendations Plan/Recommendations: Continue POC Treatment Plan/Plan of Care Patient would benefit from OT for education, treatment and training to promote independence in ADL's, mobility, safety and/or upper extremity function for ADL's. Plan of Care: ADL Retraining, Functional Mobility, Group Exercise/Act as Ind, UE Funct Exercise/Act Treatment Duration: Aug 23, 2022 Frequency: 3 times per week (3-5x/week) Estimated Hrs Per Day: .25 hour per day Agreement: Yes Rehab Potential: Fair Time/GCodes Start Time: 11:19 Stop Time: 11:28 Total Time Billed (hr/min): 9 Billed Treatment Time 1 visit EX 1 (9 min) YOEL MARTINS Aug 03, 2022 11:42
--- NOTE | 2022-08-03 12:52 | Progress Note - Hospitalist ---
CANDE NEGRO 08/03/22 1252: Subjective HPI/CC On Admission Date Seen by Provider: Aug 03, 2022 Time Seen by Provider: 12:48 CC: Dyspnea HPI: This is a 77 yr old female with a past medical history of severe COPD and continued smoking, quit just 2 weeks ago. She presented to the [facility] with flash pulmonary edema for an exacerbation of COPD. Cardiology was consulted and felt like there were no cardiac issues. She is still requiring Vapotherm and BiPAP. Speech evaluation will be needed for dysphasia. I took care of her in 2019 and she hasn't been hospitalized since then. She has a very severe COPD and cachectic appearance. Subjective/Events-last exam Patient states she feels better today. Using BiPAP and feels more comfortable with it on as opposed to Vapotherm. Still has some slight chest pressure, but feels it is better than before. Denies any other complaints at this time. No edema on exam. Focused Exam Lactate Level 08/01/22 16:15: Lactic Acid Level 2.11*H 08/01/22 19:25: Lactic Acid Level 1.01 Objective Exam Vital Signs Vital Signs Date Time Temp Pulse Resp B/P (MAP) Pulse Ox O2 Delivery O2 Flow Rate FiO2 08/03/22 12:35 36.2 93 20 122/58 (79) 98 NIV Bilevel 25.00 08/03/22 08:00 30 Capillary Refill : Less Than 3 Seconds General Appearance: Cachetic, Thin HEENT: Moist Mucous Membranes Neck: Non Tender, Supple Respiratory: Respiratory Distress, Wheezing Cardiovascular: No Edema, No JVD Gastrointestinal: Non Tender, Soft Rectal: Deferred Extremity: Non Tender, No Calf Tenderness Neurologic/Psychiatric: Alert, Normal Mood/Affect Skin: Normal Color, Warm/Dry Lymphatic: No Adenopathy Results/Procedures Lab Laboratory Tests 08/03/22 04:30 Patient resulted labs reviewed. Assessment/Plan Assessment and Plan Assess & Plan/Chief Complaint Assessment: Acute on Chronic Hypoxia COPD Exacerbation CHF Exacerbation Pulmonary Edema Plan: IV steroids IV abx Transfer to 4th floor MARY BETH Aparicio DO 08/04/22 0534: Subjective Subjective/Events-last exam Improved status No pain Breathing better Objective Exam General Appearance: Anxious, Chronically ill Respiratory: Accessory Muscle Use, Decreased Breath Sounds, Wheezing Cardiovascular: Regular Rate, Rhythm Assessment/Plan Assessment and Plan Assess & Plan/Chief Complaint Prognosis poor Move to 4th floor Supervisory-Addendum Brief Verification & Attestation Participated in pt care: history, MDM, physical Personally performed: exam, history, MDM, supervision of care Care discussed with: Medical Student Procedures: n/a Results interpretation: Verified all documentation Verification and Attestation of Medical Student E/M Service A medical student performed and documented this service in my presence. I reviewed and verified all information documented by the medical student and made modifications to such information, when appropriate. I personally performed the physical exam and medical decision making. Mary Beth Brar, Aug 04, 2022,05:33 CANDE NEGRO Aug 03, 2022 12:52 MARY BETH BRAR DO Aug 04, 2022 05:34
--- NOTE | 2022-08-03 13:57 | Diagnostic Imaging Report ---
INDICATION: Shortness of breath. COMPARISON: Comparison is made with prior examination of 11/15/2019. FINDINGS: The heart size is normal. There is air trapping, compatible with COPD. There is a somewhat spiculated soft tissue density in the left upper lobe. There is no pleural effusion or pneumothorax. Mediastinum is unremarkable. IMPRESSION: 1. Spiculated density in the left upper lobe. While this may be scarring, underlying neoplasm could not be excluded. 2. COPD. 3. No other acute cardiopulmonary abnormality. Dictated by: Dictated on workstation # [id number]
[2022-08-03 16:00] VITALS: BP 117/55
[2022-08-03 19:51] VITALS: BP 134/57
[2022-08-03] MEDS: methylPREDNISolone 40 MG/ML (Solu-MEDROL) VIAL IV SCH (20:53)
[2022-08-04] VITALS (7 sets, daily range): BP systolic 111–148; BP diastolic 52–79
[2022-08-04] MEDS: RT-ALBUTEROL/IPRATROPIUM 3 ML (DUONEB) VIAL INH SCH ×6 (04:08→21:55)
[2022-08-04] MEDS: CEFEPIME 1,000 MG/NS 50 ML IVPB IV SCH ×6 (05:45→22:07)
[2022-08-04] MEDS: LEVOTHYROXINE 50 MCG (LEVOTHROID) TAB PO SCH (05:45)
[2022-08-04 05:55] LABS: BASOPHILS % (AUTO) 0 % (0-10); EOSINOPHILS % (AUTO) 0 % (0-10); HEMATOCRIT 37 % (35-52); HEMOGLOBIN 11.8 g/dL (11.5-16.0); LYMPHOCYTES # (AUTO) 0.8 10^3/uL (1.0-4.0); LYMPHOCYTES % (AUTO) 5 % (12-44); MEAN CORPUSCULAR HEMOGLOBIN 29 pg (25-34); MEAN CORPUSCULAR HGB CONC 32 g/dL (32-36); MEAN CORPUSCULAR VOLUME 90 fL (80-99); MEAN PLATELET VOLUME 10.2 fL (9.0-12.2); MONOCYTES # (AUTO) 0.4 10^3/uL (0.0-1.0); MONOCYTES % (AUTO) 2 % (0-12); NEUTROPHILS # (AUTO) 14.8 10^3/uL (1.8-7.8); NEUTROPHILS % (AUTO) 92 % (42-75); PLATELET COUNT 392 10^3/uL (130-400); WHITE BLOOD COUNT 16.1 10^3/uL (4.3-11.0)
[2022-08-04] MEDS: inSUlin ASPART (NovoLOG) 1 UNIT/0.01 ML (CHARGE PER UNIT) SC SCH ×4 (06:00→20:45)
[2022-08-04 06:03] LABS: POTASSIUM 3.8 MMOL/L (3.6-5.0)
[2022-08-04 06:04] LABS: CALCIUM 9.5 MG/DL (8.5-10.1)
[2022-08-04 06:05] LABS: TOTAL PROTEIN 6.7 GM/DL (6.4-8.2)
[2022-08-04 06:07] LABS: BILIRUBIN,TOTAL 0.3 MG/DL (0.1-1.0)
[2022-08-04 06:08] LABS: CREATININE SERUM 0.61 MG/DL (0.60-1.30)
[2022-08-04 06:11] LABS: MAGNESIUM 2.1 MG/DL (1.6-2.4)
[2022-08-04] MEDS: RT--FLUTICASONE/SALMETEROL 232-14 (AIRDUO RespiCLICK) IH SCH ×2 (06:54→21:55)
[2022-08-04] MEDS: UMECLIDINIUM BROMIDE (INCRUSE ELLIPTA) 7'S IH SCH (06:54)
[2022-08-04] MEDS: lisINopril 10 MG (PRINIVIL) TABLET PO SCH (08:04)
[2022-08-04] MEDS: DOCUSATE SODIUM 100 MG (COLACE) CAP PO SCH ×2 (08:04→20:33)
[2022-08-04] MEDS: ENOXAPARIN INJECTION 30 MG/0.3 ML SYR SC SCH (08:04)
[2022-08-04] MEDS: methylPREDNISolone 40 MG/ML (Solu-MEDROL) VIAL IV SCH ×2 (08:05→20:35)
[2022-08-04] MEDS: CALCIUM CARB + VIT D 600 MG (CALCARB + D) TAB PO SCH (08:05)
[2022-08-04] MEDS: ASPIRIN 325 MG (5 GR) TABLET PO SCH (08:05)
[2022-08-04] MEDS: guaiFENesin (MUCINEX) 600 MG TAB PO SCH ×2 (08:05→20:33)
[2022-08-04] MEDS: LORATADINE (CLARITIN) 10 MG TAB PO SCH (08:05)
[2022-08-04] MEDS: MONTELUKAST 10 MG (SINGULAIR) TAB PO SCH (08:05)
[2022-08-04] MEDS: MULTIVIT W/MINERALS TAB (THERAGRAN M) PO SCH (08:05)
[2022-08-04] MEDS: FAMOTIDINE 20 MG (PEPCID) TABLET PO SCH (08:06)
[2022-08-04] MEDS: LORazepam 0.5 MG (ATIVAN) TABLET PO PRN ×3 (09:38→21:23)
[2022-08-04] MEDS: morphine INJ 4 MG/ML 1 ML (VIAL/SYRINGE) IV PRN ×3 (09:43→22:51)
--- NOTE | 2022-08-04 12:44 | Progress Note - Hospitalist ---
NICO MEJÍA 08/04/22 1244: Subjective HPI/CC On Admission Date Seen by Provider: Aug 04, 2022 Time Seen by Provider: 12:39 CC: Dyspnea HPI: This is a 77 yr old female with a past medical history of severe COPD and continued smoking, quit just 2 weeks ago. She presented to the [facility] with flash pulmonary edema for an exacerbation of COPD. Cardiology was consulted and felt like there were no cardiac issues. She is still requiring Vapotherm and BiPAP. Speech evaluation will be needed for dysphasia. I took care of her in 2019 and she hasn't been hospitalized since then. She has a very severe COPD and cachectic appearance. Subjective/Events-last exam Patient is no longer on BiPAP during the day and does not want to use during the day, has moved to nasal cannula with 3L keeping her O2 sat at 94% She is having increased phlegm and sputum production this morning. She has moderate labored breathing Having conversational dyspnea Reports no pain at this time Labs reviewed Glucose monitored Says she is eating okay Focused Exam Lactate Level 08/01/22 16:15: Lactic Acid Level 2.11*H 08/01/22 19:25: Lactic Acid Level 1.01 Objective Exam Vital Signs Vital Signs Date Time Temp Pulse Resp B/P (MAP) Pulse Ox O2 Delivery O2 Flow Rate FiO2 08/04/22 11:22 36.4 107 18 148/61 (90) 95 Nasal Cannula 3.00 08/03/22 20:23 30 Capillary Refill : Less Than 3 Seconds General Appearance: Anxious, Moderate Distress, Thin HEENT: Moist Mucous Membranes; No Scleral Icterus (L), No Scleral Icterus (R) Neck: Full Range of Motion, Normal Inspection Respiratory: Chest Non Tender; No No Accessory Muscle Use, No No Respiratory Distress Cardiovascular: Regular Rate, Rhythm, No Gallop, No JVD Gastrointestinal: Normal Bowel Sounds, No Organomegaly Rectal: Deferred Back: Normal Inspection, No CVA Tenderness Extremity: Normal Capillary Refill, Normal Inspection, Normal Range of Motion Neurologic/Psychiatric: Alert, Oriented x3 Skin: Normal Color, Warm/Dry Lymphatic: No Adenopathy Results/Procedures Lab Laboratory Tests 08/04/22 05:35 Patient resulted labs reviewed. Assessment/Plan Assessment and Plan Assess & Plan/Chief Complaint Assessment: Acute on Chronic Hypoxia COPD Exacerbation CHF Exacerbation Pulmonary Edema Episode of hypoglycemia Plan: Continue IV steroids Continue IV antibiotics Continue breathing treatments Monitory blood glucose Continue supportive care MARY BETH GILES DO 08/05/22 0541: Subjective Subjective/Events-last exam Pt is doing a lot better Remains on 3L of oxygen Very poor prognosis given the severity of her COPD and continued smoking Overall doing much better Review of Systems General: Fatigue, Malaise Objective Exam General Appearance: WD/WN, Anxious, Chronically ill, Thin Respiratory: Accessory Muscle Use, Decreased Breath Sounds Cardiovascular: Regular Rate, Rhythm Neurologic/Psychiatric: Alert, Oriented x3, No Motor/Sensory Deficits, Normal Mood/Affect Assessment/Plan Assessment and Plan Assess & Plan/Chief Complaint IV steroids Severe COPD Supervisory-Addendum Brief Verification & Attestation Participated in pt care: history, MDM, physical Personally performed: exam, history, MDM, supervision of care Care discussed with: Medical Student Procedures: n/a Results interpretation: Verified all documentation Verification and Attestation of Medical Student E/M Service A medical student performed and documented this service in my presence. I reviewed and verified all information documented by the medical student and made modifications to such information, when appropriate. I personally performed the physical exam and medical decision making. Mary Beth Giles, Aug 05, 2022,05:40 NICO MEJÍA Aug 04, 2022 12:44 MARY BETH GILES DO Aug 05, 2022 05:41
--- NOTE | 2022-08-04 13:35 | Physical Therapy Daily Note ---
PT Daily Note-Current Subjective Pt is in bed on arrival, discussing with OT about their treatment. Planning for bathing with OT assistance. Mental Status Patient Orientation: Person, Place, Time, Situation Attachments: Oxygen, Recinos Catheter Transfers SCALE: Activities may be completed with or without assistive devices. 4-Jfyfziyppt-cfstwru completes the activity by him/herself with no assistance from a helper. 5-Set-up or Clean-up Assistance-helper sets up or cleans up; patient completes activity. [place] assists only prior to or following the activity. 4-Supervision or Touching Assistance-helper provides verbal cues and/or touch ing/steadying and/or contact guard assistance as patient completes activity. Assistance may be provided throughout the activity or intermittently. 3-Partial/Moderate Assistance-helper does LESS THAN HALF the effort. [place] lifts, holds or supports trunk or limbs, but provides less than half the effort. 2-Substantial/Maximal Assistance-helper does MORE THAN HALF the effort. [place] lifts or holds trunk or limbs and provides more than half the effort. 5-Yytksuqvr-bympie does ALL the effort. Patient does none of the effort to complete the activity. Or, the assistance of 2 or more helpers is required for the patient to complete the activity. If activity was not attempted, code reason: 7-Patient Refused. 9-Not Applicable-not attempted and the patient did not perform the activity before the current illness, exacerbation or injury. 10-Not Attempted due to Environmental Limitations-(lack of equipment, weather restraints, etc.). 88-Not Attempted due to Medical Conditions or Safety Concerns. Sit to Lying (QC): 3 Lying to Sitting/Side of Bed(Q: 3 Sit to Stand (QC): 4 Performed transfer from bed to shower. Pt then worked with OT for showering. Gait Training Does the Patient Walk?: Yes Distance: 20ft Walk 10 feet (QC): 4 Gait Assistive Device: FWW Assessment Current Status: Fair Progress Pt proceeded to work with OT and OT was able to get her back to bed. No PT treatment due to fatigue following bathing. PT Nursing Home Goals Truck Body Builder Apprentice Goals PT Nursing Home Goals Time Frame: Aug 09, 2022 Roll Left & Right (QC): 6 Sit to Lying (QC): 6 Lying-Sitting on Side/Bed(QC): 6 Sit to Stand (QC): 6 Chair/Efi-jb-[place] Xfer(QC): 6 Walk 10 feet (QC): 6 Walk 50ft with 2 Turns (QC): 6 PT Plan Treatment/Plan Treatment Plan: Continue Plan of Care Treatment Plan: Bed Mobility, Education, Functional Activity Julienne, Functional Strength, Gait, Safety, Therapeutic Exercise, Transfers Treatment Duration: Aug 09, 2022 Frequency: 6 times per week Estimated Hrs Per Day: .25 hour per day Patient and/or Family Agrees t: Yes Time/GCodes Time In: 1335 Time Out: 1340 Total Billed Treatment Time: 0 Total Billed Treatment 1 visit only BHUMI JOYA PT Aug 04, 2022 13:35
--- NOTE | 2022-08-04 14:03 | Cardiology Progress Note ---
Subjective Date Seen by Provider: Aug 04, 2022 Time Seen by Provider: 14:02 Subjective/Events-last exam Patient was seen at bedside, sitting comfortably, still having shortness of breath Focused Exam Lactate Level 08/01/22 16:15: Lactic Acid Level 2.11*H 08/01/22 19:25: Lactic Acid Level 1.01 Objective-Cardiology Exam Last Set of Vital Signs Vital Signs 08/03/22 08/04/22 20:23 11:22 Temp 36.4 Pulse 107 Resp 18 B/P (MAP) 148/61 (90) Pulse Ox 95 O2 Delivery Nasal Cannula O2 Flow Rate 3.00 FiO2 30 I&O Intake and Output 08/04/22 00:00 Intake Total 1190 ml Output Total 1160 ml Balance 30 ml Intake Oral 1090 ml IV Total 100 ml Output Urine Total 1160 ml General: Alert, Oriented X3, Cooperative, Mild Distress, Moderate Distress HEENT: EOMI Lungs: Other (Bilateral wheezes) Heart: Regular Rate Extremities: No Clubbing, No Cyanosis Neuro: Normal Speech Psych/Mental Status: Mental Status NL Results Lab Laboratory Tests 08/04/22 05:35 A/P-Cardiology Admission Diagnosis Chest pain Acute exacerbation of COPD Hypertension Assessment/Plan Acute exac of advanced COPD - Dr Brar managing Hyperglycemia - Dr Brar managing H/o intermittent, nonspecific chest discomfort, currently stable - MPI of 01/04/21: no ischemia or infarction, LVEF 61% Palpitations - Holter of 01/04/21: NSR, PACs and PVCs, a few runs of SVT (up to 4 beats at rates up to 160 bpm) - ILR offered - not agreeable at time of office visit on 04-06-22 COPD - managed by PCP and by her outplacement consultant Previous h/o tobaccoism - Quit Pulmonary hypertension, probably related to pulmonary disease - Echocardiogram of Nov 06, [address] Angel showed LVEF 55-65%. grade 1 diastolic dysfunction. LA mildly dilated. Mod TR. PASP 65-70 mmHg. Dilated inferior vena cava. - Echocardiogram of 09-05-21 showed LVEF 50-55%. LA dilated. Mild to mod TR. PASP 30-35 mmHg Carotid dz - Moderate, bilateral carotid arterial disease w/o evidence of hemodynamic significance on carotid u/s of 12/02/20 LYNN GONZALES MD Aug 04, 2022 14:03
--- NOTE | 2022-08-04 14:04 | Occupational Ther Daily Note ---
OT Current Status-Daily Note Subjective Pt sitting up in bed with son present upon arrival. She stated that she would like to take a shower. Nurse okayed this task, but requested her oxygen to be raised to 6 L for the shower. Appearance Pt laying in bed with all needs within reach. Mental Status/Objective Patient Orientation: Person, Place, Time, Situation Attachments: Recinos Catheter, IV, Oxygen ADL-Treatment Therapy Code Descriptions/Definitions Functional [place] Measure: 0=Not Assessed/NA 4=Minimal Assistance 1=Total Assistance 5=Supervision or Setup 2=Maximal Assistance 6=Modified [place] 3=Moderate Assistance 7=Complete IndependenceSCALE: Activities may be completed with or without assistive devices. 7-Ouvfxjuwsl-hxkxhqe completes the activity by him/herself with no assistance from a helper. 5-Set-up or Clean-up Assistance-helper sets up or cleans up; patient completes activity. [place] assists only prior to or following the activity. 4-Supervision or Touching Assistance-helper provides verbal cues and/or touching/steadying and/or contact guard assistance as patient completes activity. Assistance may be provided throughout the activity or intermittently. 3-Partial/Moderate Assistance-helper does LESS THAN HALF the effort. [place] lifts, holds or supports trunk or limbs, but provides less than half the effort. 2-Substantial/Maximal Assistance-helper does MORE THAN HALF the effort. [place] lifts or holds trunk or limbs and provides more than half the effort. 2-Kvnfwdxkp-mckzua does ALL the effort. Patient does none of the effort to complete the activity. Or, the assistance of 2 or more helpers is required for the patient to complete the activity. If activity was not attempted, code reason: 7-Patient Refused. 9-Not Applicable-not attempted and the patient did not perform the activity before the current illness, exacerbation or injury. 10-Not Attempted due to Environmental Limitations-(lack of equipment, weather restraints, etc.). 88-Not Attempted due to Medical Conditions or Safety Concerns. Shower/Bathe Self (QC): 5 On/Off Footwear: 1 Sit<>stand transfers: SBA/CGA. Pt completed shower 100% in sitting and required no assistance washing any body parts. She showed and expressed increased fatigue and labored breathing upon completion of shower. After shower, O2 was taken and recorded as 97% and her HR was noted to be slightly elevated at 115-119 BPM. Pt experienced 1 minor LOB in which therapist gave min assist and min safety cues to correct. She was dependent for donning socks due to fatigue. She brushed her hair with set up assist. Education OT Patient Education: Correct positioning, Disease process, Energy conservation, Modified ADL techniques, Progress toward Goal/Update tx plan, Purpose of tx/functional activities, Rehab process, Safety issues Teaching Recipient: Patient Teaching Methods: Discussion Response to Teaching: Verbalize Understanding, Return Demonstration OT [facility] Goals First Front Ventilator Goals Time Frame: Aug 23, 2022 Eating (QC): 5 Oral Hygiene (QC): 5 Toileting Hygiene (QC): 4 Shower/Bathe Self (QC): 4 Upper Body Dressing (QC): 4 Lower Body Dressing (QC): 4 On/Off Footwear (QC): 5 Additional Goals: 1-Demonstrate ADL Tasks, 2-Verbalize Understanding, 3-Im proveStrength/Julienne 1=Demonstrate adherence to instructed precautions during ADL tasks. 2=Patient will verbalize/demonstrate understanding of assistive devices/modifications for ADL. 3=Patient will improve strength/tolerance for activity to enable patient to perform ADL's. OT Education/Plan Problem List/Assessment Assessment: Decreased Activ Tolerance, Decreased Safety Aware, Decreased UE Strength, Impaired Funct Balance Discharge Recommendations Plan/Recommendations: Continue POC Therapy Discharge Recommendati: Bath Aide, Post Acute OT Treatment Plan/Plan of Care Treatment,Training & Education: Yes Patient would benefit from OT for education, treatment and training to promote independence in ADL's, mobility, safety and/or upper extremity function for ADL's. Plan of Care: ADL Retraining, Functional Mobility, Group Exercise/Act as Ind, UE Funct Exercise/Act Treatment Duration: Aug 23, 2022 Frequency: 3 times per week (3-5x/week) Estimated Hrs Per Day: .25 hour per day Agreement: Yes Rehab Potential: Fair Time/GCodes Start Time: 13:17 Stop Time: 13:53 Total Time Billed (hr/min): 36 Billed Treatment Time 1 visit ADL x2 [place] Hernandez OT Aug 04, 2022 14:04
--- NOTE | 2022-08-04 14:41 | Physician Query Clarification ---
Physician Query-General Query to Physician: The medical record reflects the following clinical evidence: Clinical Indicators: On admissionAccessory Muscle use, Short of Air at Rest, oxygen up to 60% at times, respiratory rate 23 on admission increased as high as 35 respiratory rate mostly above 20, O2 sats 95-99 on 02, ABG on admission Ph 7.36, PCO2 57, PO2 91 (on 30%), HCO3 32, B.E. 6.3 Risk Factor(s): COPD, Diastolic dysfunction, Pulmonary HTN, no documentation of Home 02 use, Treatment: Bipap, Supplemental 02 with Vapotherm, Breathing Rx, ICU monitoring, 1. Acute and chronic respiratory failure with hypercapnia, present on admission 2. Other explanation of clinical findings 3. Unable to determine (no explanation for clinical findings) Please clarify and document your clinical opinion in the progress notes and discharge summary including the definitive and/or presumptive diagnosis, (suspected or probable), related to the above clinical findings. Please include clinical findings supporting your diagnosis. Cris Knapp RN, MSN [phone] [email or web address] PHYSICIAN RESPONSE: Based on the clinical findings in the record, please respond to the query above on this document as an addendum. Physician Response: Physician Response 1 If you have questions please contact: Harvest Worker: Ext: Thank you for your time and cooperation. Clinical Corporate Quality Engineer/Harvest Worker This is a permanent part of the medical record CRIS KNAPP Aug 04, 2022 14:41 MARTIN GILES DO Aug 04, 2022 20:22
--- NOTE | 2022-08-04 14:56 | Physician Query Clarification ---
Physician Query-General Query to Physician: The medical record reflects the following clinical scenario: The patient, in the setting of History/Risk factors, Pulmonary HTN, COPD, Clinical Findings SOA, BNP 168, Per Dr. Turk "Echocardiogram of Nov 06, [address] Angel showed LVEF 55-65%. grade 1 diastolic dysfunction" Treatment ER: Lasix IV, Supplemental 02, Bipap, Cardiology consult Question: Can you further specify "CHF exacerbation" per the clinical indicators above? Please document your response in the Progress Notes or Discharge Summary. 1. Acute Diastolic (HFpEF) Failure present on admission 2. Other, with explanation of clinical findings 3. Clinically undetermined, no explanation for clinical findings Please clarify and document your clinical opinion in the Progress Notes and Discharge Summary including the definitive and/or presumptive diagnosis, (suspected or probable), related to the above clinical findings. Please include clinical findings supporting your diagnosis. In responding to this query, please exercise your independent professional judgment. The purpose of this communication is to more accurately reflect the complexity of your patients condition. The fact that a question is asked does not imply that any particular answer is desired or expected. Thank you for timely response to this clarification. Cris Cosme RN, MSN Clinical Furnace Roaster [phone] PHYSICIAN RESPONSE: Based on the clinical findings in the record, please respond to the query above on this document as an addendum. Physician Response: Physician Response 1 If you have questions please contact: Associate Professor Of History: Ext: Thank you for your time and cooperation. Clinical Furnace Roaster/Associate Professor Of History This is a permanent part of the medical record CRIS COSME Aug 04, 2022 14:56 MARTIN GILES DO Aug 04, 2022 20:22
[2022-08-05 03:23] VITALS: BP 143/65
[2022-08-05] MEDS: CEFEPIME 1,000 MG/NS 50 ML IVPB IV SCH ×6 (05:36→21:00)
[2022-08-05] MEDS: LEVOTHYROXINE 50 MCG (LEVOTHROID) TAB PO SCH (05:36)
[2022-08-05] MEDS: inSUlin ASPART (NovoLOG) 1 UNIT/0.01 ML (CHARGE PER UNIT) SC SCH ×4 (05:37→20:58)
[2022-08-05 06:40] LABS: BASOPHILS % (AUTO) 0 % (0-10); EOSINOPHILS % (AUTO) 0 % (0-10); HEMATOCRIT 34 % (35-52); HEMOGLOBIN 10.9 g/dL (11.5-16.0); LYMPHOCYTES # (AUTO) 0.7 10^3/uL (1.0-4.0); LYMPHOCYTES % (AUTO) 7 % (12-44); MEAN CORPUSCULAR HEMOGLOBIN 30 pg (25-34); MEAN CORPUSCULAR HGB CONC 33 g/dL (32-36); MEAN CORPUSCULAR VOLUME 91 fL (80-99); MEAN PLATELET VOLUME 10.4 fL (9.0-12.2); MONOCYTES # (AUTO) 0.4 10^3/uL (0.0-1.0); MONOCYTES % (AUTO) 4 % (0-12); NEUTROPHILS # (AUTO) 8.6 10^3/uL (1.8-7.8); NEUTROPHILS % (AUTO) 88 % (42-75); PLATELET COUNT 370 10^3/uL (130-400); WHITE BLOOD COUNT 9.8 10^3/uL (4.3-11.0)
[2022-08-05 06:57] LABS: ALBUMIN 3.5 GM/DL (3.2-4.5); POTASSIUM 4.2 MMOL/L (3.6-5.0)
[2022-08-05 06:59] LABS: CALCIUM 9.1 MG/DL (8.5-10.1)
[2022-08-05 07:00] LABS: TOTAL PROTEIN 5.9 GM/DL (6.4-8.2)
[2022-08-05 07:02] LABS: BILIRUBIN,TOTAL 0.3 MG/DL (0.1-1.0)
[2022-08-05 07:03] LABS: CREATININE SERUM 0.56 MG/DL (0.60-1.30)
[2022-08-05 07:07] LABS: MAGNESIUM 2.1 MG/DL (1.6-2.4)
--- NOTE | 2022-08-05 07:19 | Progress Note - Hospitalist ---
Subjective HPI/CC On Admission Date Seen by Provider: Aug 05, 2022 Time Seen by Provider: 10:00 CC: Dyspnea HPI: This is a 77 yr old female with a past medical history of severe COPD and continued smoking, quit just 2 weeks ago. She presented to the [place] ER with flash pulmonary edema for an exacerbation of COPD. Cardiology was consulted and felt like there were no cardiac issues. She is still requiring Vapotherm and BiPAP. Speech evaluation will be needed for dysphasia. I took care of her in 2019 and she hasn't been hospitalized since then. She has a very severe COPD and cachectic appearance. Subjective/Events-last exam Doing better Morphine and Ativan help with the air hunger at times Patient is definitely a hospice candidate but will need to be educated and reassured if that is to be a possibility Daughter at bedside Review of Systems General: Fatigue, Malaise Pulmonary: Dyspnea, Cough Objective Exam Vital Signs Vital Signs Date Time Temp Pulse Resp B/P (MAP) Pulse Ox O2 Delivery O2 Flow Rate FiO2 08/05/22 11:13 37.2 93 18 137/76 (96) 98 Nasal Cannula 2.00 08/04/22 14:42 32 Capillary Refill : Less Than 3 Seconds General Appearance: WD/WN, Anxious, Chronically ill, Mild Distress, Thin Respiratory: Accessory Muscle Use, Decreased Breath Sounds, Wheezing Cardiovascular: Regular Rate, Rhythm Neurologic/Psychiatric: Alert, Oriented x3, No Motor/Sensory Deficits, Normal Mood/Affect Results/Procedures Lab Laboratory Tests 08/05/22 06:13 Patient resulted labs reviewed. Assessment/Plan Assessment and Plan Assess & Plan/Chief Complaint Assessment: Severe acute respiratory failure on chronic respiratory failure Smoker COPD with exacerbation Plan: DC catheter Monitor lungs status Critical Care Critically Ill Patient TISHAMARTIN DONAHUE Aug 05, 2022 07:19
[2022-08-05] MEDS: RT-ALBUTEROL/IPRATROPIUM 3 ML (DUONEB) VIAL INH SCH ×5 (07:23→22:06)
[2022-08-05 07:35] VITALS: BP 138/66
[2022-08-05] MEDS: methylPREDNISolone 40 MG/ML (Solu-MEDROL) VIAL IV SCH ×2 (08:28→20:58)
[2022-08-05] MEDS: MULTIVIT W/MINERALS TAB (THERAGRAN M) PO SCH (08:30)
[2022-08-05] MEDS: CALCIUM CARB + VIT D 600 MG (CALCARB + D) TAB PO SCH (08:30)
[2022-08-05] MEDS: MONTELUKAST 10 MG (SINGULAIR) TAB PO SCH (08:30)
[2022-08-05] MEDS: LORATADINE (CLARITIN) 10 MG TAB PO SCH (08:30)
[2022-08-05] MEDS: FAMOTIDINE 20 MG (PEPCID) TABLET PO SCH (08:30)
[2022-08-05] MEDS: guaiFENesin (MUCINEX) 600 MG TAB PO SCH ×2 (08:30→20:58)
[2022-08-05] MEDS: lisINopril 10 MG (PRINIVIL) TABLET PO SCH (08:30)
[2022-08-05] MEDS: ASPIRIN 325 MG (5 GR) TABLET PO SCH (08:30)
[2022-08-05] MEDS: DOCUSATE SODIUM 100 MG (COLACE) CAP PO SCH ×3 (08:30→20:58)
[2022-08-05] MEDS: ENOXAPARIN INJECTION 30 MG/0.3 ML SYR SC SCH (08:31)
[2022-08-05] MEDS: RT--FLUTICASONE/SALMETEROL 232-14 (AIRDUO RespiCLICK) IH SCH ×2 (08:34→19:32)
[2022-08-05] MEDS: UMECLIDINIUM BROMIDE (INCRUSE ELLIPTA) 7'S IH SCH (08:35)
--- NOTE | 2022-08-05 09:35 | Cardiology Progress Note ---
Subjective Date Seen by Provider: Aug 05, 2022 Time Seen by Provider: 09:34 Subjective/Events-last exam Patient was seen at bedside, laying down comfortably, using BiPAP Review of Systems General: No Chills, No Night Sweats; Fatigue, Malaise; No Appetite, No Other HEENT: No Head Aches, No Visual Changes, No Eye Pain, No Ear Pain, No Dysphasia, No Sinus Congestion, No Post Nasal Drip, No Sore Throat, No Other Pulmonary: Dyspnea; No Cough, No Pleuritic Chest Pain, No Other Cardiovascular: No: Chest Pain, Palpitations, Orthopnea, Paroxysmal Noc. Dyspnea, Edema, Lt Headedness, Other Objective-Cardiology Exam Last Set of Vital Signs Vital Signs 08/04/22 08/05/22 14:42 07:35 Temp 36.8 Pulse 65 Resp 20 B/P (MAP) 138/66 (90) Pulse Ox 97 O2 Delivery NIV Bilevel O2 Flow Rate 25.00 FiO2 32 I&O Intake and Output 08/05/22 00:00 Intake Total 1260 ml Output Total 1600 ml Balance -340 ml Intake Oral 1160 ml IV Total 100 ml Output Urine Total 1600 ml # Bowel Movements 1 General: Alert, Oriented X3, Cooperative, Mild Distress, Moderate Distress HEENT: EOMI Lungs: Other (Bilateral wheezes) Heart: Regular Rate, Normal S1, Normal S2 Extremities: No Clubbing, No Cyanosis Neuro: Normal Speech Psych/Mental Status: Mental Status NL Results Lab Laboratory Tests 08/05/22 06:13 A/P-Cardiology Admission Diagnosis Chest pain Acute exacerbation of COPD Hypertension Assessment/Plan Acute exac of advanced COPD - Dr Brar managing Hyperglycemia - Dr Brar managing H/o intermittent, nonspecific chest discomfort, currently stable - MPI of 01/04/21: no ischemia or infarction, LVEF 61% Palpitations - Holter of 01/04/21: NSR, PACs and PVCs, a few runs of SVT (up to 4 beats at rates up to 160 bpm) - ILR offered - not agreeable at time of office visit on 04-06-22 COPD - managed by PCP and by her payroll technician Previous h/o tobaccoism - Quit Pulmonary hypertension, probably related to pulmonary disease - Echocardiogram of Nov 06, [address] Angel showed LVEF 55-65%. grade 1 diastolic dysfunction. LA mildly dilated. Mod TR. PASP 65-70 mmHg. Dilated inferior vena cava. - Echocardiogram of 09-05-21 showed LVEF 50-55%. LA dilated. Mild to mod TR. PASP 30-35 mmHg Carotid dz - Moderate, bilateral carotid arterial disease w/o evidence of hemodynamic significance on carotid u/s of 12/02/20 LYNN GONZALES MD Aug 05, 2022 09:35
[2022-08-05] MEDS: LORazepam 0.5 MG (ATIVAN) TABLET PO PRN ×3 (09:39→21:04)
[2022-08-05] MEDS: morphine INJ 4 MG/ML 1 ML (VIAL/SYRINGE) IV PRN ×3 (09:39→21:04)
--- NOTE | 2022-08-05 10:43 | Physical Therapy Daily Note ---
PT Daily Note-Current Subjective The patient states that she is doing a little better today. Agrees to bed exercises. Transfers SCALE: Activities may be completed with or without assistive devices. 9-Qobclcfrhf-lbpriqp completes the activity by him/herself with no assistance from a helper. 5-Set-up or Clean-up Assistance-helper sets up or cleans up; patient completes activity. [place] assists only prior to or following the activity. 4-Supervision or Touching Assistance-helper provides verbal cues and/or touching/steadying and/or contact guard assistance as patient completes activity. Assistance may be provided throughout the activity or intermittently. 3-Partial/Moderate Assistance-helper does LESS THAN HALF the effort. [place] lifts, holds or supports trunk or limbs, but provides less than half the effort. 2-Substantial/Maximal Assistance-helper does MORE THAN HALF the effort. [place] lifts or holds trunk or limbs and provides more than half the effort. 0-Pvplmjdbw-xvfzvb does ALL the effort. Patient does none of the effort to complete the activity. Or, the assistance of 2 or more helpers is required for the patient to complete the activity. If activity was not attempted, code reason: 7-Patient Refused. 9-Not Applicable-not attempted and the patient did not perform the activity before the current illness, exacerbation or injury. 10-Not Attempted due to Environmental Limitations-(lack of equipment, weather restraints, etc.). 88-Not Attempted due to Medical Conditions or Safety Concerns. Exercises Seated Therapy Exercises: LE Protocol Seated Reps: 20 Assessment Current Status: Good Progress Patient had SOB during treatment today. PT Snf Goals Snf Goals PT Snf Goals Time Frame: Aug 09, 2022 Roll Left & Right (QC): 6 Sit to Lying (QC): 6 Lying-Sitting on Side/Bed(QC): 6 Sit to Stand (QC): 6 Chair/Tbj-ni-Ceesw Xfer(QC): 6 Walk 10 feet (QC): 6 Walk 50ft with 2 Turns (QC): 6 PT Plan Treatment/Plan Treatment Plan: Continue Plan of Care Treatment Plan: Bed Mobility, Education, Functional Activity Julienne, Functional Strength, Gait, Safety, Therapeutic Exercise, Transfers Treatment Duration: Aug 09, 2022 Frequency: 6 times per week Estimated Hrs Per Day: .25 hour per day Patient and/or Family Agrees t: Yes Time/GCodes Time In: 1030 Time Out: 1040 Total Billed Treatment Time: 10 Total Billed Treatment 1, EX x 10' BHUMI PAULINO PT Aug 05, 2022 10:43
[2022-08-05 11:13] VITALS: BP 137/76
[2022-08-05 16:46] VITALS: BP 149/70
[2022-08-05 19:39] VITALS: BP 159/74
[2022-08-05 23:42] VITALS: BP 133/62
[2022-08-06] MEDS: RT-ALBUTEROL/IPRATROPIUM 3 ML (DUONEB) VIAL INH SCH ×6 (01:58→22:48)
[2022-08-06 03:25] VITALS: BP 147/73
[2022-08-06] MEDS: inSUlin ASPART (NovoLOG) 1 UNIT/0.01 ML (CHARGE PER UNIT) SC SCH ×4 (06:00→21:12)
[2022-08-06] MEDS: LEVOTHYROXINE 50 MCG (LEVOTHROID) TAB PO SCH (06:03)
[2022-08-06] MEDS: CEFEPIME 1,000 MG/NS 50 ML IVPB IV SCH ×6 (06:04→22:22)
[2022-08-06 06:21] LABS: BASOPHILS % (AUTO) 0 % (0-10); EOSINOPHILS % (AUTO) 0 % (0-10); HEMATOCRIT 37 % (35-52); HEMOGLOBIN 11.8 g/dL (11.5-16.0); LYMPHOCYTES # (AUTO) 0.9 10^3/uL (1.0-4.0); LYMPHOCYTES % (AUTO) 9 % (12-44); MEAN CORPUSCULAR HEMOGLOBIN 29 pg (25-34); MEAN CORPUSCULAR HGB CONC 32 g/dL (32-36); MEAN CORPUSCULAR VOLUME 91 fL (80-99); MEAN PLATELET VOLUME 10.5 fL (9.0-12.2); MONOCYTES # (AUTO) 0.4 10^3/uL (0.0-1.0); MONOCYTES % (AUTO) 4 % (0-12); NEUTROPHILS # (AUTO) 8.7 10^3/uL (1.8-7.8); NEUTROPHILS % (AUTO) 86 % (42-75); PLATELET COUNT 369 10^3/uL (130-400)
[2022-08-06 06:40] LABS: ALBUMIN 3.7 GM/DL (3.2-4.5); POTASSIUM 4.5 MMOL/L (3.6-5.0)
[2022-08-06 06:41] LABS: CALCIUM 9.1 MG/DL (8.5-10.1)
[2022-08-06 06:43] LABS: TOTAL PROTEIN 6.3 GM/DL (6.4-8.2)
[2022-08-06 06:44] LABS: BILIRUBIN,TOTAL 0.3 MG/DL (0.1-1.0)
[2022-08-06 06:46] LABS: CREATININE SERUM 0.6 MG/DL (0.60-1.30)
[2022-08-06 06:49] LABS: MAGNESIUM 2.1 MG/DL (1.6-2.4)
[2022-08-06 07:23] VITALS: BP 155/64
--- NOTE | 2022-08-06 07:53 | Progress Note - Hospitalist ---
Subjective HPI/CC On Admission Date Seen by Provider: Aug 06, 2022 Time Seen by Provider: 11:00 CC: Dyspnea HPI: This is a 77 yr old female with a past medical history of severe COPD and continued smoking, quit just 2 weeks ago. She presented to the [place] ER with flash pulmonary edema for an exacerbation of COPD. Cardiology was consulted and felt like there were no cardiac issues. She is still requiring Vapotherm and BiPAP. Speech evaluation will be needed for dysphasia. I took care of her in 2019 and she hasn't been hospitalized since then. She has a very severe COPD and cachectic appearance. Subjective/Events-last exam Patient doing the same Severe COPD really precludes much more improvement Still in IV steroids due to severity of her COPD exacerbation Really needs hospice so will try to evaluate her readiness at DC Review of Systems Pulmonary: Dyspnea, Cough Objective Exam Vital Signs Vital Signs Date Time Temp Pulse Resp B/P (MAP) Pulse Ox O2 Delivery O2 Flow Rate FiO2 08/06/22 14:39 98 Nasal Cannula 2.00 08/06/22 11:32 36.5 102 24 157/73 (101) 08/04/22 14:42 32 Capillary Refill : Less Than 3 Seconds General Appearance: WD/WN, Anxious, Chronically ill, Mild Distress Respiratory: No Accessory Muscle Use, No Respiratory Distress, Decreased Breath Sounds, Wheezing Cardiovascular: Regular Rate, Rhythm Neurologic/Psychiatric: Alert, Oriented x3, No Motor/Sensory Deficits, Normal Mood/Affect Results/Procedures Lab Laboratory Tests 08/06/22 06:14 Patient resulted labs reviewed. Assessment/Plan Assessment and Plan Assess & Plan/Chief Complaint Assessment: Severe acute respiratory failure on chronic respiratory failure Smoker COPD with exacerbation Plan: Continue aggressive IV steroids Monitor lungs status Critical Care Critically Ill Patient TISHAMARTIN DONAHUE Aug 06, 2022 07:53
[2022-08-06] MEDS: lisINopril 10 MG (PRINIVIL) TABLET PO SCH (08:44)
[2022-08-06] MEDS: MONTELUKAST 10 MG (SINGULAIR) TAB PO SCH (08:44)
[2022-08-06] MEDS: ASPIRIN 325 MG (5 GR) TABLET PO SCH (08:44)
[2022-08-06] MEDS: CALCIUM CARB + VIT D 600 MG (CALCARB + D) TAB PO SCH (08:44)
[2022-08-06] MEDS: guaiFENesin (MUCINEX) 600 MG TAB PO SCH ×2 (08:45→20:15)
[2022-08-06] MEDS: MULTIVIT W/MINERALS TAB (THERAGRAN M) PO SCH (08:45)
[2022-08-06] MEDS: FAMOTIDINE 20 MG (PEPCID) TABLET PO SCH (08:45)
[2022-08-06] MEDS: LORATADINE (CLARITIN) 10 MG TAB PO SCH (08:45)
[2022-08-06] MEDS: methylPREDNISolone 40 MG/ML (Solu-MEDROL) VIAL IV SCH ×2 (08:45→20:15)
[2022-08-06] MEDS: ENOXAPARIN INJECTION 30 MG/0.3 ML SYR SC SCH (08:46)
[2022-08-06] MEDS: DOCUSATE SODIUM 100 MG (COLACE) CAP PO SCH ×2 (08:47→20:16)
[2022-08-06] MEDS: RT--FLUTICASONE/SALMETEROL 232-14 (AIRDUO RespiCLICK) IH SCH ×2 (08:50→19:06)
[2022-08-06] MEDS: UMECLIDINIUM BROMIDE (INCRUSE ELLIPTA) 7'S IH SCH (08:51)
--- NOTE | 2022-08-06 10:06 | Cardiology Progress Note ---
Subjective Date Seen by Provider: Aug 06, 2022 Time Seen by Provider: 10:05 Subjective/Events-last exam Patient was seen at bedside, laying down comfortably Still having significant dyspnea Review of Systems General: No Chills, No Night Sweats; Fatigue; No Malaise, No Appetite, No Other HEENT: No Head Aches, No Visual Changes, No Eye Pain, No Ear Pain, No Dysphasia, No Sinus Congestion, No Post Nasal Drip, No Sore Throat, No Other Pulmonary: Dyspnea; No Cough, No Pleuritic Chest Pain, No Other Cardiovascular: No: Chest Pain, Palpitations, Orthopnea, Paroxysmal Noc. Dyspnea, Edema, Lt Headedness, Other Objective-Cardiology Exam Last Set of Vital Signs Vital Signs 08/04/22 08/06/22 14:42 07:23 Temp 35.8 Pulse 74 Resp 20 B/P (MAP) 155/64 (94) Pulse Ox 96 O2 Delivery NIV Bilevel O2 Flow Rate 25.00 FiO2 32 I&O Intake and Output 08/06/22 00:00 Intake Total 1480 ml Output Total 1750 ml Balance -270 ml Intake Oral 1330 ml IV Total 150 ml Output Urine Total 1750 ml # Voids 2 General: Alert, Oriented X3, Cooperative, Mild Distress, Moderate Distress HEENT: EOMI Lungs: Other (Bilateral wheezes) Heart: Regular Rate, Normal S1, Normal S2 Extremities: No Clubbing, No Cyanosis Neuro: Normal Speech Psych/Mental Status: Mental Status NL Results Lab Laboratory Tests 08/06/22 06:14 A/P-Cardiology Admission Diagnosis Chest pain Acute exacerbation of COPD Hypertension Assessment/Plan Acute exac of advanced COPD Severe dyspnea. Oxygen dependent. Following with Dr. Li as an outpatient - Dr Brar managing Hyperglycemia - Dr Brar managing H/o intermittent, nonspecific chest discomfort, currently stable - MPI of 01/04/21: no ischemia or infarction, LVEF 61% Palpitations - Holter of 01/04/21: NSR, PACs and PVCs, a few runs of SVT (up to 4 beats at rates up to 160 bpm) - ILR offered - not agreeable at time of office visit on 04-06-22 COPD - managed by PCP and by her car shakeout operator Previous h/o tobaccoism - Quit Pulmonary hypertension, probably related to pulmonary disease - Echocardiogram of Nov 06, [address] Angel showed LVEF 55-65%. grade 1 diastolic dysfunction. LA mildly dilated. Mod TR. PASP 65-70 mmHg. Dilated inferior vena cava. - Echocardiogram of 09-05-21 showed LVEF 50-55%. LA dilated. Mild to mod TR. PASP 30-35 mmHg Carotid dz - Moderate, bilateral carotid arterial disease w/o evidence of hemodynamic significance on carotid u/s of 12/02/20 LNYN GONZALES MD Aug 06, 2022 10:06
[2022-08-06 11:32] VITALS: BP 157/73
[2022-08-06] MEDS: LORazepam 0.5 MG (ATIVAN) TABLET PO PRN ×2 (12:00→20:15)
[2022-08-06 16:07] VITALS: BP 146/65
[2022-08-06 19:39] VITALS: BP 158/83
[2022-08-06] MEDS: morphine INJ 4 MG/ML 1 ML (VIAL/SYRINGE) IV PRN (20:15)
[2022-08-07] VITALS: BP 135/72
[2022-08-07] MEDS: RT-ALBUTEROL/IPRATROPIUM 3 ML (DUONEB) VIAL INH SCH ×6 (02:39→22:23)
[2022-08-07] MEDS: inSUlin ASPART (NovoLOG) 1 UNIT/0.01 ML (CHARGE PER UNIT) SC SCH ×4 (05:32→20:37)
[2022-08-07 05:35] LABS: BASOPHILS % (AUTO) 0 % (0-10); EOSINOPHILS % (AUTO) 0 % (0-10); HEMATOCRIT 35 % (35-52); HEMOGLOBIN 11.2 g/dL (11.5-16.0); LYMPHOCYTES # (AUTO) 0.9 10^3/uL (1.0-4.0); LYMPHOCYTES % (AUTO) 8 % (12-44); MEAN CORPUSCULAR HEMOGLOBIN 30 pg (25-34); MEAN CORPUSCULAR HGB CONC 32 g/dL (32-36); MEAN CORPUSCULAR VOLUME 91 fL (80-99); MEAN PLATELET VOLUME 10.2 fL (9.0-12.2); MONOCYTES # (AUTO) 0.6 10^3/uL (0.0-1.0); MONOCYTES % (AUTO) 5 % (0-12); NEUTROPHILS # (AUTO) 9.2 10^3/uL (1.8-7.8); NEUTROPHILS % (AUTO) 85 % (42-75); PLATELET COUNT 366 10^3/uL (130-400); WHITE BLOOD COUNT 10.8 10^3/uL (4.3-11.0)
[2022-08-07] MEDS: LEVOTHYROXINE 50 MCG (LEVOTHROID) TAB PO SCH (05:47)
[2022-08-07] MEDS: CEFEPIME 1,000 MG/NS 50 ML IVPB IV SCH ×6 (05:47→21:15)
[2022-08-07 05:48] LABS: ALBUMIN 3.5 GM/DL (3.2-4.5); POTASSIUM 4.4 MMOL/L (3.6-5.0)
[2022-08-07 05:49] LABS: CALCIUM 9.2 MG/DL (8.5-10.1)
[2022-08-07 05:51] LABS: TOTAL PROTEIN 5.7 GM/DL (6.4-8.2)
[2022-08-07 05:52] LABS: BILIRUBIN,TOTAL 0.3 MG/DL (0.1-1.0)
[2022-08-07 05:54] LABS: CREATININE SERUM 0.56 MG/DL (0.60-1.30)
[2022-08-07] MEDS: RT--FLUTICASONE/SALMETEROL 232-14 (AIRDUO RespiCLICK) IH SCH ×2 (07:12→19:09)
[2022-08-07] MEDS: UMECLIDINIUM BROMIDE (INCRUSE ELLIPTA) 7'S IH SCH (07:13)
[2022-08-07 08:01] VITALS: BP 142/75
[2022-08-07] MEDS: methylPREDNISolone 40 MG/ML (Solu-MEDROL) VIAL IV SCH (08:10)
[2022-08-07] MEDS: LORATADINE (CLARITIN) 10 MG TAB PO SCH (08:11)
[2022-08-07] MEDS: ENOXAPARIN INJECTION 30 MG/0.3 ML SYR SC SCH (08:11)
[2022-08-07] MEDS: DOCUSATE SODIUM 100 MG (COLACE) CAP PO SCH ×2 (08:11→19:48)
[2022-08-07] MEDS: FAMOTIDINE 20 MG (PEPCID) TABLET PO SCH (08:11)
[2022-08-07] MEDS: lisINopril 10 MG (PRINIVIL) TABLET PO SCH (08:11)
[2022-08-07] MEDS: ASPIRIN 325 MG (5 GR) TABLET PO SCH (08:11)
[2022-08-07] MEDS: CALCIUM CARB + VIT D 600 MG (CALCARB + D) TAB PO SCH (08:11)
[2022-08-07] MEDS: ACETAMINOPHEN 325 MG TABLET PO PRN ×2 (08:11→15:45)
[2022-08-07] MEDS: guaiFENesin (MUCINEX) 600 MG TAB PO SCH ×2 (08:11→19:46)
[2022-08-07] MEDS: MULTIVIT W/MINERALS TAB (THERAGRAN M) PO SCH (08:11)
[2022-08-07] MEDS: MONTELUKAST 10 MG (SINGULAIR) TAB PO SCH (08:11)
--- NOTE | 2022-08-07 10:59 | Occ Therapy Progress Note ---
Therapy Progress Note Pt walking back to bed (from bathroom) at OT arrival. No staff present. Education on fall policy and calling for assistance when needing to use toilet. Pt verbalizes that she would like a shower however would like to wait until after the doctor has made her rounds. Pt refuses all treatment ideas at this time despite education on OT scheduling. OT will attempt again at a later time if scheduling allows. 1 visit Indiana Hernandez OT Aug 07, 2022 10:59
--- NOTE | 2022-08-07 12:51 | Physical Therapy Progress Note ---
Therapy Progress Note Patient declined PT stating she was waiting on the doctor and has been up to the EOB and standing without difficulty. Family/friend present and confirms. PT will attempt in a.m 1 ref EVI AMBROCIO PT Aug 07, 2022 12:51
--- NOTE | 2022-08-07 14:06 | Progress Note ---
Subjective Subjective/Events-last exam Pt seen at 1210, sitting up in bed with significant work of breathing but able to speak in full sentences. Objective Exam Last Set of Vital Signs Vital Signs Date Time Temp Pulse Resp B/P (MAP) Pulse Ox O2 Delivery O2 Flow Rate FiO2 08/07/22 10:53 98 Nasal Cannula 2.00 08/07/22 08:01 36.4 81 18 142/75 (97) 08/07/22 07:13 28 Capillary Refill : Less Than 3 Seconds I&O Intake and Output 08/07/22 00:00 Intake Total 1690 ml Output Total 1400 ml Balance 290 ml Intake Oral 1690 ml Output Urine Total 1400 ml # Voids 3 # Bowel Movements 1 General: Alert Lungs: Other (decreased air movement throughout with faint wheezing) Heart: Regular Rate Abdomen: Normal Bowel Sounds, Soft Neuro: Normal Speech Psych/Mental Status: Mood NL Results/Procedures Lab Laboratory Tests 08/06/22 15:17: Glucometer 173H 08/06/22 20:37: Glucometer 165H 08/07/22 05:23: White Blood Count 10.8, Red Blood Count 3.80, Hemoglobin 11.2L, Hematocrit 35, Mean Corpuscular Volume 91, Mean Corpuscular Hemoglobin 30, Mean Corpuscular Hemoglobin Concent 32, Red Cell Distribution Width 13.1, Platelet Count 366, Mean Platelet Volume 10.2, Immature Granulocyte % (Auto) 1, Neutrophils (%) (Auto) 85H, Lymphocytes (%) (Auto) 8L, Monocytes (%) (Auto) 5, Eosinophils (%) (Auto) 0, Basophils (%) (Auto) 0, Neutrophils # (Auto) 9.2H, Lymphocytes # (Auto) 0.9L, Monocytes # (Auto) 0.6, Eosinophils # (Auto) 0.0, Basophils # (Auto) 0.0, Immature Granulocyte # (Auto) 0.1, Sodium Level 141, Potassium Level 4.4, Chloride Level 97L, Carbon Dioxide Level 36H, Anion Gap 8, Blood Urea Nitrogen 24H, Creatinine 0.56L, Estimat Glomerular Filtration Rate 94, BUN/Creatinine Ratio 43, Glucose Level 90, Calcium Level 9.2, Corrected Calcium 9.6, Total Bilirubin 0.3, Aspartate Amino Transf (AST/SGOT) 25, Alanine Aminotransferase (ALT/SGPT) 34, Alkaline Phosphatase 74, Total Protein 5.7L, Albumin 3.5 08/07/22 05:25: Glucometer 87 08/07/22 10:48: Glucometer 114H Radiology NAME: EMMANUEL BROOKS [facility] REC#: [id number] PT STATUS: REG ER : 1945 PHYSICIAN: SHANNAN DEUTSCH MD ADMIT DATE: 08/01/22/ER FS Signed Date of Exam:08/01/22 CT ANGIO CHEST W PROCEDURE: CT angiography of the chest with contrast. TECHNIQUE: Multiple contiguous axial images were obtained through the chest after uneventful bolus administration of intravenous contrast. 3D reconstructed CTA MIP acquisitions were also performed. Auto Exposure Controls were utilized during the CT exam to meet ALARA standards for radiation dose reduction. INDICATION: COPD patient, shortness of air, chest pain. It is compared with chest CT 01/25/2022. FINDINGS: The pulmonary arterial branches well opacified, widely patent. No filling defect. No PE. The thoracic aorta patent, nonaneurysmal and nonacute. There is no pleural or pericardial effusion. Centrilobular emphysema with symmetrical hyperexpansion of the lungs stable. A focal irregular opacity in the left upper lobe anteriorly is partially retracted and decreased in size from the previous and appears more scarlike as opposed to masslike. No adverse interval development. No adenopathy. No chest wall lesion. Visualized upper abdomen appeared nonacute. IMPRESSION: 1. Negative for PE or acute aortic disease. Left upper lobe nodule is decreased in size and appears more linear at follow-up with no new lung mass, adenopathy or adverse interval change. Dictated by: Dictated on workstation # [id number] Dict: 08/01/22 1819 Trans: 08/01/221849 HARDIK [id number] Interpreted by: JANIE TORIBIO Electronically signed by: JANIE TORIBIO 08/01/221849 Assessment/Plan Assessment/Plan (1) COPD exacerbation Status: Acute Assessment & Plan: Severe, remains markedly short of breath although now on baseline home oxygen, has been on high dose IV steroids for multiple days, will change to oral today. Continue fluticasone, umeclidinium, albuterol. -She feels she can rest better with morphine, notes she has gone home with hydrocodone in the past for similar episodes, she is not ready to consider ho spice yet. (2) Pneumonia Status: Acute Assessment & Plan: Cefepime (3) Left upper lobe pulmonary nodule Status: Chronic Assessment & Plan: Decreased compared to previous imaging (4) Hypertension (5) Chronic respiratory failure Status: Chronic Qualifiers: Qualified Codes: J96.12 - Chronic respiratory failure with hypercapnia (6) DVT prophylaxis Status: Acute Assessment & Plan: Enoxaparin DELANO PRITCHETT MD Aug 07, 2022 14:06
[2022-08-07] MEDS: LORazepam 0.5 MG (ATIVAN) TABLET PO PRN ×2 (14:19→21:33)
[2022-08-07 16:00] VITALS: BP 144/69
--- NOTE | 2022-08-07 16:25 | Progress Note - Cardiology ---
Cardiology SOAP Progress Note Subjective: Notes some improvement of shortness of breath since admission No cp or palp or syncope Gen malaise and weakness present Objective: I&O/Vital Signs 08/07/22 08/07/22 08/07/22 08/07/22 07:13 07:13 08:00 08:01 Temp 36.4 Pulse 98 81 Resp 18 B/P (MAP) 142/75 (97) Pulse Ox 98 82 98 O2 Delivery Nasal Cannula Nasal Cannula Nasal Cannula O2 Flow Rate 2.00 2.00 2.00 FiO2 28 08/07/22 08/07/22 08/07/22 10:53 14:49 16:00 Temp 37.0 Pulse 98 Resp 17 B/P (MAP) 144/69 (94) Pulse Ox 98 85 99 O2 Delivery Nasal Cannula Room Air Nasal Cannula O2 Flow Rate 2.00 2.00 08/07/22 00:00 Intake Total 1390 ml Output Total 1400 ml Balance -10 ml Constitutional: AAO x 3, other Respiratory: other Cardiovascular: regular rate-rhythm, S1 and S2, systolic murmur Gastrointestional: soft, audible bowel sounds Extremities: No clubbing, No cyanosis, No significant edema Neurologic/Psychiatric: other Skin: warm/dry Results/Procedures: Labs Laboratory Tests 08/06/22 20:37: Glucometer 165H 08/07/22 05:23: White Blood Count 10.8, Red Blood Count 3.80, Hemoglobin 11.2L, Hematocrit 35, Mean Corpuscular Volume 91, Mean Corpuscular Hemoglobin 30, Mean Corpuscular Hemoglobin Concent 32, Red Cell Distribution Width 13.1, Platelet Count 366, Mean Platelet Volume 10.2, Immature Granulocyte % (Auto) 1, Neutrophils (%) (Auto) 85H, Lymphocytes (%) (Auto) 8L, Monocytes (%) (Auto) 5, Eosinophils (%) (Auto) 0, Basophils (%) (Auto) 0, Neutrophils # (Auto) 9.2H, Lymphocytes # (Auto) 0.9L, Monocytes # (Auto) 0.6, Eosinophils # (Auto) 0.0, Basophils # (Auto) 0.0, Immature Granulocyte # (Auto) 0.1, Sodium Level 141, Potassium Level 4.4, Chloride Level 97L, Carbon Dioxide Level 36H, Anion Gap 8, Blood Urea Nitrogen 24H, Creatinine 0.56L, Estimat Glomerular Filtration Rate 94, BUN/Creatinine Ratio 43, Glucose Level 90, Calcium Level 9.2, Corrected Calcium 9.6, Total Bilirubin 0.3, Aspartate Amino Transf (AST/SGOT) 25, Alanine Aminotransferase (ALT/SGPT) 34, Alkaline Phosphatase 74, Total Protein 5.7L, Albumin 3.5 08/07/22 05:25: Glucometer 87 08/07/22 10:48: Glucometer 114H 08/07/22 15:45: Glucometer 157H Laboratory Tests 08/06/22 06:14 08/07/22 05:23 A/P: Assessment: Acute exac of advanced COPD - Dr Brar managing Hyperglycemia - Dr Brar managing H/o intermittent, nonspecific chest discomfort, currently stable - MPI of 01/04/21: no ischemia or infarction, LVEF 61% Palpitations - Holter of 01/04/21: NSR, PACs and PVCs, a few runs of SVT (up to 4 beats at rates up to 160 bpm) - ILR offered - not agreeable at time of office visit on 04-06-22 COPD - managed by PCP and by her order filler Previous h/o tobaccoism - Quit Pulmonary hypertension, probably related to pulmonary disease - Echocardiogram of Nov 06, [address] Angel showed LVEF 55-65%. grade 1 diastolic dysfunction. LA mildly dilated. Mod TR. PASP 65-70 mmHg. Dilated inferior vena cava. - Echocardiogram of 09-05-21 showed LVEF 50-55%. LA dilated. Mild to mod TR. PASP 30-35 mmHg Carotid dz - Moderate, bilateral carotid arterial disease w/o evidence of hemodynamic significance on carotid u/s of 12/02/20 Plan: * Again advised to continue to avoid tobacco use * Dr Brar managing COPD * Monitor labs FLAKITA GUZMÁN MD FACP [facility] Aug 07, 2022 16:25
[2022-08-07] MEDS: morphine INJ 4 MG/ML 1 ML (VIAL/SYRINGE) IV PRN (21:33)
[2022-08-08 00:01] VITALS: BP 139/63
[2022-08-08] MEDS: RT-ALBUTEROL/IPRATROPIUM 3 ML (DUONEB) VIAL INH SCH ×3 (02:02→10:55)
[2022-08-08] MEDS: LEVOTHYROXINE 50 MCG (LEVOTHROID) TAB PO SCH (05:13)
[2022-08-08] MEDS: CEFEPIME 1,000 MG/NS 50 ML IVPB IV SCH ×2 (05:13)
[2022-08-08] MEDS: inSUlin ASPART (NovoLOG) 1 UNIT/0.01 ML (CHARGE PER UNIT) SC SCH ×2 (05:20→12:19)
[2022-08-08 05:27] LABS: BASOPHILS % (AUTO) 0 % (0-10); EOSINOPHILS % (AUTO) 0 % (0-10); HEMATOCRIT 38 % (35-52); HEMOGLOBIN 12.1 g/dL (11.5-16.0); LYMPHOCYTES # (AUTO) 2.8 10^3/uL (1.0-4.0); LYMPHOCYTES % (AUTO) 15 % (12-44); MEAN CORPUSCULAR HEMOGLOBIN 29 pg (25-34); MEAN CORPUSCULAR HGB CONC 32 g/dL (32-36); MEAN CORPUSCULAR VOLUME 91 fL (80-99); MEAN PLATELET VOLUME 10.5 fL (9.0-12.2); MONOCYTES # (AUTO) 1.9 10^3/uL (0.0-1.0); MONOCYTES % (AUTO) 10 % (0-12); NEUTROPHILS # (AUTO) 14.1 10^3/uL (1.8-7.8); NEUTROPHILS % (AUTO) 74 % (42-75); PLATELET COUNT 429 10^3/uL (130-400)
[2022-08-08 05:55] LABS: ALBUMIN 3.8 GM/DL (3.2-4.5); POTASSIUM 4.2 MMOL/L (3.6-5.0)
[2022-08-08 05:56] LABS: CALCIUM 9.4 MG/DL (8.5-10.1)
[2022-08-08 05:58] LABS: TOTAL PROTEIN 6.3 GM/DL (6.4-8.2)
[2022-08-08 05:59] LABS: BILIRUBIN,TOTAL 0.3 MG/DL (0.1-1.0)
[2022-08-08 06:01] LABS: CREATININE SERUM 0.59 MG/DL (0.60-1.30)
[2022-08-08] MEDS: UMECLIDINIUM BROMIDE (INCRUSE ELLIPTA) 7'S IH SCH (07:06)
[2022-08-08] MEDS: RT--FLUTICASONE/SALMETEROL 232-14 (AIRDUO RespiCLICK) IH SCH (07:07)
[2022-08-08 07:27] VITALS: BP 169/74
--- NOTE | 2022-08-08 08:15 | Speech Therapy Progress Note ---
Therapy Progress Note Per chart review, the patient appears to be tolerating a dysphagia two diet consistency with thin liquids. The clinician does not recommend advancement due to prior esophageal dysphagia reported by the patient. The clinician continues to recommend follow up and treatment by GI. As the patient is at the highest diet level speech pathology recommends and tolerance is reported, speech pathology to sign off of services at this time. If concerns for aspiration arise, please re-consult speech pathology. MAXIMILIANO TADEO Aug 08, 2022 08:15
[2022-08-08] MEDS: ENOXAPARIN INJECTION 30 MG/0.3 ML SYR SC SCH (09:01)
[2022-08-08] MEDS: guaiFENesin (MUCINEX) 600 MG TAB PO SCH (09:01)
[2022-08-08] MEDS: DOCUSATE SODIUM 100 MG (COLACE) CAP PO SCH (09:01)
[2022-08-08] MEDS: MULTIVIT W/MINERALS TAB (THERAGRAN M) PO SCH (09:01)
[2022-08-08] MEDS: LORATADINE (CLARITIN) 10 MG TAB PO SCH (09:01)
[2022-08-08] MEDS: ASPIRIN 325 MG (5 GR) TABLET PO SCH (09:01)
[2022-08-08] MEDS: FAMOTIDINE 20 MG (PEPCID) TABLET PO SCH (09:02)
[2022-08-08] MEDS: CALCIUM CARB + VIT D 600 MG (CALCARB + D) TAB PO SCH (09:02)
[2022-08-08] MEDS: lisINopril 10 MG (PRINIVIL) TABLET PO SCH (09:02)
[2022-08-08] MEDS: MONTELUKAST 10 MG (SINGULAIR) TAB PO SCH (09:02)
--- NOTE | 2022-08-08 09:40 | Progress Note - Cardiology ---
Cardiology SOAP Progress Note Objective: I&O/Vital Signs 08/08/22 08/08/22 08/08/22 08/08/22 07:13 07:27 07:29 10:55 Temp 35.3 Pulse 100 Resp 18 B/P (MAP) 169/74 (105) Pulse Ox 98 79 98 O2 Delivery Nasal Cannula Nasal Cannula Nasal Cannula Nasal Cannula O2 Flow Rate 2.00 2.00 2.00 2.00 08/08/22 00:00 Intake Total 1190 ml Output Total 900 ml Balance 290 ml Constitutional: AAO x 3, other Respiratory: other Cardiovascular: regular rate-rhythm, S1 and S2, systolic murmur Gastrointestional: soft, audible bowel sounds Extremities: No clubbing, No cyanosis, No significant edema Neurologic/Psychiatric: other Skin: warm/dry Results/Procedures: Labs Laboratory Tests 08/07/22 15:45: Glucometer 157H 08/07/22 20:15: Glucometer 139H 08/08/22 05:05: White Blood Count 19.0H, Red Blood Count 4.19, Hemoglobin 12.1, Hematocrit 38, Mean Corpuscular Volume 91, Mean Corpuscular Hemoglobin 29, Mean Corpuscular Hemoglobin Concent 32, Red Cell Distribution Width 13.2, Platelet Count 429H, Mean Platelet Volume 10.5, Immature Granulocyte % (Auto) 1, Neutrophils (%) (Auto) 74, Lymphocytes (%) (Auto) 15, Monocytes (%) (Auto) 10, Eosinophils (%) (Auto) 0, Basophils (%) (Auto) 0, Neutrophils # (Auto) 14.1H, Lymphocytes # (Auto) 2.8, Monocytes # (Auto) 1.9H, Eosinophils # (Auto) 0.0, Basophils # (Auto) 0.0, Immature Granulocyte # (Auto) 0.3H, Sodium Level 141, Potassium Level 4.2, Chloride Level 95L, Carbon Dioxide Level 34H, Anion Gap 12, Blood Urea Nitrogen 21H, Creatinine 0.59L, Estimat Glomerular Filtration Rate 93, BUN/Creatinine Ratio 36, Glucose Level 49*L, Calcium Level 9.4, Corrected Calcium 9.6, Total Bilirubin 0.3, Aspartate Amino Transf (AST/SGOT) 30, Alanine Aminotransferase (ALT/SGPT) 45, Alkaline Phosphatase 77, Total Protein 6.3L, Albumin 3.8 08/08/22 05:19: Glucometer 53*L 08/08/22 06:01: Glucometer 111H 08/08/22 11:05: Glucometer 50*L 08/08/22 11:54: Glucometer 123H A/P: Assessment: Acute exac of advanced COPD - Dr Brar managing Hyperglycemia - Dr Brar managing H/o intermittent, nonspecific chest discomfort, currently stable - MPI of 01/04/21: no ischemia or infarction, LVEF 61% Palpitations - Holter of 01/04/21: NSR, PACs and PVCs, a few runs of SVT (up to 4 beats at rates up to 160 bpm) - ILR offered - not agreeable at time of office visit on 04-06-22 COPD - managed by PCP and 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 Angel showed LVEF 55-65%. grade 1 diastolic dysfunction. LA mildly dilated. Mod TR. PASP 65-70 mmHg. Dilated inferior vena cava. - Echocardiogram of 09-05-21 showed LVEF 50-55%. LA dilated. Mild to mod TR. PASP 30-35 mmHg Carotid dz - Moderate, bilateral carotid arterial disease w/o evidence of hemodynamic significance on carotid u/s of 12/02/20 Plan: * Again advised to continue to avoid tobacco use * Dr Brar managing COPD * Monitor labs COLLEEN CRUZ Aug 08, 2022 09:40
[2022-08-08] MEDS ORDERED: PRD20T PO ×2 (11:34→14:12)
[2022-08-08] MEDS ORDERED: ACHD5005 PO ×2 (11:34→14:13)
--- NOTE | 2022-08-08 11:37 | D/C HH Face to Face Order ---
D/C Face to Face Orders Instructions for Patient Patient Instructions/FollowUp: Follow up with primary physician within a week of discharge. Physician to follow Patient: Self Discharge Diet for Home: Regular Diet Patient Problems: See problem list Patient Data-Allergies,Ht & Wt Patient Allergies: Coded Allergies: No Known Drug Allergies (Unverified , 11/10/19) Home Health Need/Face to Face Date of Face to Face: Aug 08, 2022 Clinical Findings: Shortness of breath I have seen Pt [id number]: Yes Discharged To: Home Diagnosis/Conditions: See problem list Problems/Diagnosis/Condition: (1) Chronic respiratory failure (2) Anxiety (3) Hypertension (4) COPD exacerbation (5) Left upper lobe pulmonary nodule (6) Pneumonia (7) Debility (8) CO2 retention Patient is Homebound due to: Shortness of breath/distress Homebound Status Due to the above stated illness, injury or surgical procedure (medical condition or diagnosis) and associated clinical findings, the patient is homebound because of his/her inability to leave home except with aid of a supportive device and/or person AND leaving the home requires a considerable and taxing effort or is medically contraindicated. Pt req the following assistanc: Aid of another person Home Health Nursing Orders Home Health Services Order: Nursing Services, Physical Therapy-Evaluate & Treat Home Health Infusion Therapy Line Start Date: Aug 01, 2022 Certify Stmt I certify that this patient is under my care and that I, a nurse practitioner or a physician; a customer relations assistant working with me, had a face to face encounter that - meets the physician face to face encounter requirements with this patient as dated. DELANO PRITCHETT MD Aug 08, 2022 11:36
--- NOTE | 2022-08-08 11:42 | Discharge Summary ---
Discharge Summary Hospital Course Problems/Diagnosis: (1) COPD exacerbation Status: Acute Assessment & Plan: 08/07/22- Severe, remains markedly short of breath although now on baseline home oxygen, has been on high dose IV steroids for multiple days, will change to oral today. Continue fluticasone, umeclidinium, albuterol. She feels she can rest better with morphine, notes she has gone home with hydrocodone in the past for similar episodes, she is not ready to consider hospice yet. 08/08/22- breathing more easily, tolerating oral steroids, using baseline 2 lpm supplemental oxygen. Discharged on prednisone taper, continue home Trelegy and albuterol as needed. She reported she still had ativan at home, and felt she could manage pain with hydrocodone which she reports she would use maybe a few times per week in the past, discharged with small supply and to follow up with primary about manager terminal plan. She did require insulin for a time during admission due to hyperglycemia with steroids, but blood sugars were actually dropping low on insulin and with change to oral steroid, will not continue insulin on d/c. (2) Pneumonia Status: Resolved Resolution Date/Time: 08/08/22 @ 11:37 Assessment & Plan: Completed course of Cefepime (3) Left upper lobe pulmonary nodule Status: Chronic Assessment & Plan: Decreased compared to previous imaging, she reports plan for repeat CT for monitoring in August. (4) Hypertension (5) Chronic respiratory failure Status: Chronic Assessment & Plan: With hypoxia and hypercapnia, continue home supplemental oxygen and bipap at night. Seen by Cardiology and noted pulmonary hypertension but not pulmonary edema (which was initially suspected in ER and she received one dose of IV lasix in ER). Discharged with home health. Qualifiers: Qualified Codes: J96.12 - Chronic respiratory failure with hypercapnia Hospital Course Date of Admission: Aug 01, 2022 at 21:26 Admission Diagnosis : Family Physician/Provider: Pete Lombardo MD Date of Discharge: 08/08/22 Discharge Diagnosis: See problem list Hospital Course: See problem list Labs and Pending Lab Test: Laboratory Tests 08/07/22 15:45: Glucometer 157H 08/07/22 20:15: Glucometer 139H 08/08/22 05:05: White Blood Count 19.0H, Red Blood Count 4.19, Hemoglobin 12.1, Hematocrit 38, Mean Corpuscular Volume 91, Mean Corpuscular Hemoglobin 29, Mean Corpuscular He moglobin Concent 32, Red Cell Distribution Width 13.2, Platelet Count 429H, Mean Platelet Volume 10.5, Immature Granulocyte % (Auto) 1, Neutrophils (%) (Auto) 74, Lymphocytes (%) (Auto) 15, Monocytes (%) (Auto) 10, Eosinophils (%) (Auto) 0, Basophils (%) (Auto) 0, Neutrophils # (Auto) 14.1H, Lymphocytes # (Auto) 2.8, Monocytes # (Auto) 1.9H, Eosinophils # (Auto) 0.0, Basophils # (Auto) 0.0, Immature Granulocyte # (Auto) 0.3H, Sodium Level 141, Potassium Level 4.2, Chloride Level 95L, Carbon Dioxide Level 34H, Anion Gap 12, Blood Urea Nitrogen 21H, Creatinine 0.59L, Estimat Glomerular Filtration Rate 93, BUN/Creatinine Ratio 36, Glucose Level 49*L, Calcium Level 9.4, Corrected Calcium 9.6, Total Bilirubin 0.3, Aspartate Amino Transf (AST/SGOT) 30, Alanine Aminotransferase (ALT/SGPT) 45, Alkaline Phosphatase 77, Total Protein 6.3L, Albumin 3.8 08/08/22 05:19: Glucometer 53*L 08/08/22 06:01: Glucometer 111H 08/08/22 11:05: Glucometer 50*L Home Meds Active HYDROcodone/APAP 5 MG/325 MG TAB (Acetaminophen/Hydrocodone Bitart) 1 Tab Tab 1 Tab PO Q6H PRN Prednisone 20 Mg Tab 0 PO UD Take 6 tabs(60mg)daily, decrease by 1 tab(10mg) every other day. Reported Famotidine 20 Mg Tablet 20 Mg PO DAILY Flonase Allergy Relief (Fluticasone Propionate) 50 Mcg/Actuation [place].susp 1-2 [place] NSEACH DAILY PRN Centrum Silver Women Tablet (Multivits-Min/Iron/FA/Lutein) 8 Mg Iron-400 Mcg-300 Mcg Tablet 1 Each PO DAILY Cetirizine HCl 10 Mg Tablet 10 Mg PO DAILY Calcium + Vitamin D Tablet (Calcium Carbonate/Vitamin D3) 600 Mg Calcium-5 Mcg (200 Unit) Tablet 1 Ea PO DAILY Aspirin 325 Mg Tablet 325 Mg PO DAILY Iprat-Albut 0.5-3(2.5) mg/3 ml (Ipratropium/Albuterol Sulfate) 0.5 Mg-3 Mg (2.5 Mg Base)/3 Ml Ampul.neb 3 Ml IH Q6H Proventil Hfa (Albuterol Sulfate) 6.7 Gm Hfa.aer.ad 2 Puff INH Q4H PRN Levothyroxine Sodium 50 Mcg Tablet 50 Mcg PO DAILY Ativan (Lorazepam) 0.5 Mg Tablet 0.5 Mg PO DAILY PRN Lisinopril 10 Mg Tablet 10 Mg PO DAILY Trelegy Ellipta 100-62.5-25 (Fluticasone/Umeclidin/Vilanter) 100-62.5 Blst.w.dev 1 Puff INH DAILY Furosemide 20 Mg Tablet 20-40 Mg PO DAILY PRN TAKES 1 TO 2 (20MG) TABS Mucinex (Guaifenesin) 600 Mg Tab.er.12h 600 Mg PO BID Montelukast Sodium 10 Mg Tablet 10 Mg PO DAILY Assessment/Pt DC Instructions Follow up with primary doctor within a week of discharge. Discharge Diet: Regular Diet Activity as Tolerated: Yes Discharge Physical Examination Allergies: Coded Allergies: No Known Drug Allergies (Unverified , 11/10/19) General Appearance: Thin Respiratory: No Accessory Muscle Use, No Respiratory Distress, Decreased Breath Sounds, Wheezing Cardiovascular: Regular Rate, Rhythm, No Murmur Gastrointestinal: Normal Bowel Sounds, Non Tender, Soft Extremity: No Pedal Edema Skin: Warm/Dry Neurologic/Psychiatric: Alert, Normal Mood/Affect Copy Copies To 1: SELF,DELANO ALMENDAREZ MD, MD Aug 08, 2022 11:42
[2022-08-08] MEDS: LORazepam 0.5 MG (ATIVAN) TABLET PO PRN (12:19)
--- NOTE | 2022-08-08 13:04 | Progress Note - Cardiology ---
Cardiology SOAP Progress Note Subjective: shortness of breath better compared to time of admission No cp or palp or syncope No swelling Gen weakness, chronic Objective: I&O/Vital Signs 08/08/22 08/08/22 08/08/22 08/08/22 02:03 07:13 07:27 07:29 Temp 35.3 Pulse 68 100 Resp 17 18 B/P (MAP) 169/74 (105) Pulse Ox 97 98 79 O2 Delivery Nasal Cannula Nasal Cannula Nasal Cannula O2 Flow Rate 25.00 2.00 2.00 2.00 08/08/22 10:55 Pulse Ox 98 O2 Delivery Nasal Cannula O2 Flow Rate 2.00 08/08/22 00:00 Intake Total 1190 ml Output Total 900 ml Balance 290 ml Constitutional: AAO x 3, other Respiratory: other Cardiovascular: regular rate-rhythm, S1 and S2, systolic murmur Gastrointestional: soft, audible bowel sounds Extremities: No clubbing, No cyanosis, No significant edema Neurologic/Psychiatric: other Skin: warm/dry Results/Procedures: Labs Laboratory Tests 08/07/22 15:45: Glucometer 157H 08/07/22 20:15: Glucometer 139H 08/08/22 05:05: White Blood Count 19.0H, Red Blood Count 4.19, Hemoglobin 12.1, Hematocrit 38, Mean Corpuscular Volume 91, Mean Corpuscular Hemoglobin 29, Mean Corpuscular Hemoglobin Concent 32, Red Cell Distribution Width 13.2, Platelet Count 429H, Mean Platelet Volume 10.5, Immature Granulocyte % (Auto) 1, Neutrophils (%) (Auto) 74, Lymphocytes (%) (Auto) 15, Monocytes (%) (Auto) 10, Eosinophils (%) (Auto) 0, Basophils (%) (Auto) 0, Neutrophils # (Auto) 14.1H, Lymphocytes # (Auto) 2.8, Monocytes # (Auto) 1.9H, Eosinophils # (Auto) 0.0, Basophils # (Auto) 0.0, Immature Granulocyte # (Auto) 0.3H, Sodium Level 141, Potassium Level 4.2, Chloride Level 95L, Carbon Dioxide Level 34H, Anion Gap 12, Blood Urea Nitrogen 21H, Creatinine 0.59L, Estimat Glomerular Filtration Rate 93, BU N/Creatinine Ratio 36, Glucose Level 49*L, Calcium Level 9.4, Corrected Calcium 9.6, Total Bilirubin 0.3, Aspartate Amino Transf (AST/SGOT) 30, Alanine Aminotransferase (ALT/SGPT) 45, Alkaline Phosphatase 77, Total Protein 6.3L, Albumin 3.8 08/08/22 05:19: Glucometer 53*L 08/08/22 06:01: Glucometer 111H 08/08/22 11:05: Glucometer 50*L 08/08/22 11:54: Glucometer 123H Laboratory Tests 08/07/22 05:23 08/08/22 05:05 A/P: Assessment: Acute exac of advanced COPD - Dr Brar managing Hyperglycemia - Dr Brar managing H/o intermittent, nonspecific chest discomfort, currently stable - MPI of 01/04/21: no ischemia or infarction, LVEF 61% Palpitations - Holter of 01/04/21: NSR, PACs and PVCs, a few runs of SVT (up to 4 beats at rates up to 160 bpm) - ILR offered - not agreeable at time of office visit on 04-06-22 COPD - managed by PCP and 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 Angel showed LVEF 55-65%. grade 1 diastolic dysfunction. LA mildly dilated. Mod TR. PASP 65-70 mmHg. Dilated inferior vena cava. - Echocardiogram of 09-05-21 showed LVEF 50-55%. LA dilated. Mild to mod TR. PASP 30-35 mmHg - Echo 08-02-22: LVE 55-60%, PASP 50-55 mmHg Carotid dz - Moderate, bilateral carotid arterial disease w/o evidence of hemodynamic significance on carotid u/s of 12/02/20 Plan: * Again advised to continue to avoid tobacco use * Medical service managing ac exac of COPD * Outpt cardiac f/u advised post discharge FLAKITA GUZMÁN [facility] Aug 08, 2022 13:04
--- NOTE | 2022-08-08 13:12 | Occ Therapy Progress Note ---
Therapy Progress Note Pt up ambulating in room upon arrival. OT attempted to see pt for occupational therapy session. Pt declined all OT options as all needs were met and that she was discharging today. Concerns and questions were answered regarding home ADL safety. OT will reattempt tomorrow as necessary, if pt does not discharge home. Indiana Hernandez OT Aug 08, 2022 13:12
[2022-08-08] MEDS ORDERED: predniSONE 20 MG TAB PO SCH (20:00)
== END 2022-08-08 14:55 | disposition home health service (06) | DRG 189 ==
LOC: EDUNIT# 15:57 → ER FS 15:58 → ICU 19:09 → UNDOADMIN 19:09 → ICU 21:26 → 4TH 08-03 12:24
PROVIDERS: ADMIT Internal Medicine; ATTEND Family Medicine
PROC: 5A09357 Assistance with Respiratory Ventilation, Less than 24 Consecutive Hours, Continuous Positive Airway Pressure (ICD-10-PCS; principal; 2022-08-01)
DX: J96.21 Acute and chronic respiratory failure with hypoxia (principal); J18.9 Pneumonia, unspecified organism; I50.31 Acute diastolic (congestive) heart failure; J44.1 Chronic obstructive pulmonary disease with (acute) exacerbation; J44.0 Chronic obstructive pulmonary disease with (acute) lower respiratory infection; J96.22 Acute and chronic respiratory failure with hypercapnia; Z20.822 Contact with and (suspected) exposure to COVID-19; F17.210 Nicotine dependence, cigarettes, uncomplicated; R73.9 Hyperglycemia, unspecified; I27.20 Pulmonary hypertension, unspecified; E16.2 Hypoglycemia, unspecified; R91.1 Solitary pulmonary nodule; I11.0 Hypertensive heart disease with heart failure; R00.2 Palpitations; I77.9 Disorder of arteries and arterioles, unspecified
CPT/HCPCS: 36415; 51702; 71045; 71275; 80053; 80306; 81000; 82805; 82947; 83605; 83735; 83880; 84100; 84484; 85007; 85025; 85027; 85379; 85610; 85730; 87636; 93005; 93306; 94640; 94660; 94760; Q9967

== ENCOUNTER 2022-08-19 01:29 | Emergency (ER) | payer MEDICARE, OTHER ==
[~2022-08-19] VITALS: Ht 152.4 cm; Wt 41.7 kg
[~2022-08-19 01:29] MED LIST changes: +ACHD5005 PO; +ALEN70TA85 PO; +ASPI-808 PO; +CALC-140 PO; +CETI10TA17 PO; +FAMO20TA5 PO; +FLUT1BLS3 INH; +FLUT9.9S NSEACH; +FURO20TA4 PO; +IPRA3AMP31 IH; +LEVO50TA6 PO; +LISI10TA25 PO; +LORA-404 PO; +MULT-1021 PO; +PRD20T PO; +RT-ALBUINH INH
--- NOTE | 2022-08-19 01:50 | ED Chest Pain ---
General Chief Complaint: Chest Pain Stated Complaint: CHEST PAINS Source: patient, family, old records History of Present Illness Date Seen by Provider: Aug 19, 2022 Time Seen by Provider: 01:35 Initial Comments 77-year-old female presenting with complaints of fast heart rate and chest pain. She has recently been in the hospital for COPD exacerbation. 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 She did a breathing treatment around 1030 or 11 PM before going to bed and then was awakened at 1145 with chest pain and her heart racing. She has a history of paroxysmal atrial fibrillation that comes and goes. Normally when her heart is racing like this it slows down on its own. However since it was not improving and she continued to have chest tightness and pain she came to the emergency department. She denies having fever, chills, nausea, vomiting. She does have increased shortness of breath and anxiety currently. She is on a steroid taper and states that she has 1 more day of medicine. Timing/Duration: 1-3 hours Severity/Quality: severe, pressure, tightness Location: central Radiation: no radiation Activities at Onset: sleep Modifying Factors: worse with exercise ASA po STORE MANAGER: No NTG SL STORE MANAGER: No Associated Symptoms: No abdominal pain, No back pain, No diaphoresis, No dizziness, No edema; fatigue; No fever/chills, No headache, No heartburn, No nausea/vomiting, No rash; shortness of breath Allergies and Home Medications Allergies Coded Allergies: No Known Drug Allergies (Unverified , 11/10/19) Patient Home Medication List Home Medication List Reviewed: Yes Albuterol Sulfate (Proventil Hfa) 6.7 Gm Hfa.aer.ad, 2 PUFF INH Q4H PRN for SHOR TNESS OF BREATH, (Reported) Entered as Reported by: GELA DIEGO on 08/02/22 104 Aspirin (Aspirin) 325 Mg Tablet, 325 MG PO DAILY, (Reported) Entered as Reported by: GELA DIEGO on 08/02/22 104 Calcium Carbonate/Vitamin D3 (Calcium + Vitamin D Tablet) 600 Mg Calcium-5 Mcg (200 Unit) Tablet, 1 EA PO DAILY, (Reported) Entered as Reported by: GELA DIEGO on 08/02/22 104 Cetirizine HCl (Cetirizine HCl) 10 Mg Tablet, 10 MG PO DAILY, (Reported) Entered as Reported by: GELA DIEGO on 08/02/22 1045 Famotidine (Famotidine) 20 Mg Tablet, 20 MG PO DAILY, (Reported) Entered as Reported by: GELA DIEGO on 08/02/22 1155 Fluticasone Propionate (Flonase Allergy Relief) 50 Mcg/Actuation [place].susp, 1-2 SPRAY NSEACH DAILY PRN for CONGESTION, (Reported) Entered as Reported by: GELA DIEGO on 08/02/22 1047 Fluticasone/Umeclidin/Vilanter (Trelegy Ellipta 100-62.5-25) 100-62.5 Blst.w.dev, 1 PUFF INH DAILY, (Reported) Entered as Reported by: GELA DIEGO on 08/02/22 104 Furosemide (Furosemide) 20 Mg Tablet, 20-40 MG PO DAILY PRN for FLUID RETENTION, (Reported) Entered as Reported by: GELA DIEGO on 08/02/22 104 Guaifenesin (Mucinex) 600 Mg Tab.er.12h, 600 MG PO BID, (Reported) Entered as Reported by: AMADO DIAS on 11/13/19 0901 Hydrocodone/Acetaminophen (Hydrocodone-Acetamin 5-325 mg) 5 Mg-325 Mg Tablet, 1 TAB PO Q6H PRN for PAIN-MODERATE (5-7) Prescribed by: DELANO PRITCHETT on 08/08/22 1414 Ipratropium/Albuterol Sulfate (Iprat-Albut 0.5-3(2.5) mg/3 ml) 0.5 Mg-3 Mg (2.5 Mg Base)/3 Ml Ampul.neb, 3 ML IH Q6H, (Reported) Entered as Reported by: GELA DIEGO on 08/02/22 1045 Levothyroxine Sodium (Levothyroxine Sodium) 50 Mcg Tablet, 50 MCG PO DAILY, (Reported) Entered as Reported by: GELA DIEGO on 08/02/22 104 Lisinopril (Lisinopril) 10 Mg Tablet, 10 MG PO DAILY, (Reported) Entered as Reported by: GELA DIEGO on 08/02/22 104 Lorazepam (Ativan) 0.5 Mg Tablet, 0.5 MG PO DAILY PRN for ANXIETY, (Reported) Entered as Reported by: GELA DIEGO on 08/02/22 1045 Montelukast Sodium (Montelukast Sodium) 10 Mg Tablet, 10 MG PO DAILY, (Reported) Entered as Reported by: AMADO DIAS on 11/13/19 0900 Multivits-Min/Iron/FA/Lutein (Centrum Silver Women Tablet) 8 Mg Iron-400 Mcg-300 Mcg Tablet, 1 EACH PO DAILY, (Reported) Entered as Reported by: GELA DIEGO on 08/02/22 1047 Prednisone (Prednisone) 20 Mg Tab, 40 MG PO DAILY Prescribed by: DELANO PRITCHETT on 08/08/22 1412 Review of Systems Review of Systems Constitutional: No chills, No fever EENTM: No Symptoms Reported Respiratory: See HPI Cardiovascular: See HPI Gastrointestinal: Denies Nausea, Denies Vomiting Genitourinary: No Symptoms Reported Musculoskeletal: no symptoms reported Skin: No rash Psychiatric/Neurological: Anxiety Past Lsqsabx-Vgpfgl-Azxghj Hx Seasonal Allergies Seasonal Allergies: No Past Medical History Surgery/Hospitalization HX: COPD, palpitations, Paroxysmal atrial fibrillation Surgeries: Yes Appendectomy, Gallbladder, Hysterectomy, Orthopedic Respiratory: Yes Pneumonia, COPD Cardiac: No Hypertension Neurological: No Genitourinary: No Gastrointestinal: No Musculoskeletal: No Endocrine: No HEENT: No Dysphagia Cancer: No Psychosocial: No Integumentary: No Physical Exam Vital Signs Vital Signs - First Documented 08/19/22 01:29 Temp 36.3 Pulse 135 Resp 38 B/P (MAP) 151/72 (98) Capillary Refill : Height, Weight, BMI Height: '" Weight: lbs. oz. kg; 14.59 BMI Method: General Appearance: Anxious, Chronically ill, Mild Distress HEENT: Pharynx Normal Neck: Supple Respiratory: Chest Non Tender, Accessory Muscle Use, Decreased Breath Sounds, Wheezing Cardiovascular: Normal Peripheral Pulses, Irregularly Irregular, Tachycardia Gastrointestinal: Normal Bowel Sounds, No Pulsatile Mass, Non Tender, Soft Extremity: Normal Capillary Refill, No Pedal Edema Neurologic/Psychiatric: Alert, Oriented x3, medical photographer II-XII Norm as Tested Skin: Normal Color, Warm/Dry Progress/Results/Core Measures Results/Orders Lab Results Laboratory Tests Test 08/19/22 01:42 Range/Units White Blood Count 17.1 H 4.3-11.0 10^3/uL Red Blood Count 3.99 3.80-5.11 10^6/uL Hemoglobin 11.9 11.5-16.0 g/dL Hematocrit 37 35-52 % Mean Corpuscular Volume 93 80-99 fL Mean Corpuscular Hemoglobin 30 25-34 pg Mean Corpuscular Hemoglobin Concent 32 32-36 g/dL Red Cell Distribution Width 14.5 10.0-14.5 % Platelet Count 313 130-400 10^3/uL Mean Platelet Volume 10.3 9.0-12.2 fL Neutrophils (%) (Auto) 90 H 42-75 % Lymphocytes (%) (Auto) 3 L 12-44 % Monocytes (%) (Auto) 6 0-12 % Eosinophils (%) (Auto) 0 0-10 % Basophils (%) (Auto) 0 0-10 % Neutrophils # (Auto) 15.5 H 1.8-7.8 X 10^3 Lymphocytes # (Auto) 0.6 L 1.0-4.0 X 10^3 Monocytes # (Auto) 1.1 H 0.0-1.0 X 10^3 Eosinophils # (Auto) 0.0 0.0-0.3 10^3/uL Basophils # (Auto) 0.0 0.0-0.1 10^3/uL Neutrophils % (Manual) 96 % Lymphocytes % (Manual) 1 % Monocytes % (Manual) 3 % Prothrombin Time 12.6 12.2-14.7 SEC INR Comment 0.9 0.8-1.4 Activated Partial Thromboplast Time 21 L 24-35 SEC Sodium Level 133 L 135-145 MMOL/L Potassium Level 4.2 3.6-5.0 MMOL/L Chloride Level 90 L 98-107 MMOL/L Carbon Dioxide Level 28 21-32 MMOL/L Anion Gap 15 H 5-14 MMOL/L Blood Urea Nitrogen 32 H 7-18 MG/DL Creatinine 0.93 0.60-1.30 MG/DL Estimat Glomerular Filtration Rate 63 BUN/Creatinine Ratio 34 Glucose Level 258 H 70-105 MG/DL Calcium Level 9.7 8.5-10.1 MG/DL Corrected Calcium 9.5 8.5-10.1 MG/DL Magnesium Level 1.9 1.6-2.4 MG/DL Total Bilirubin 0.3 0.1-1.0 MG/DL Aspartate Amino Transf (AST/SGOT) 26 5-34 U/L Alanine Aminotransferase (ALT/SGPT) 41 0-55 U/L Alkaline Phosphatase 142 H 40-136 U/L Troponin I < 0.30 <0.30 NG/ML Pro-B-Type Natriuretic Peptide 403.2 <450.0 PG/ML Total Protein 6.7 6.4-8.2 GM/DL Albumin 4.3 3.2-4.5 GM/DL My Orders Orders - YANI KELLEY MD Chest 1 View Ap/Pa Only (08/19/22 01:39) Cbc With Automated Diff (08/19/22 01:43) Magnesium (08/19/22 01:43) Ekg Tracing (08/19/22 01:43) Comprehensive Metabolic Panel (08/19/22 01:43) Protime With Inr (08/19/22 01:43) Partial Thromboplastin Time (08/19/22 01:43) O2 (08/19/22 01:43) Monitor-Rhythm Ecg Trace Only (08/19/22 01:43) Ed Iv/Invasive Line Start (08/19/22 01:43) Troponin I Fs (08/19/22 01:43) Probnp Fs (08/19/22 01:43) Diltiazem Injection (Cardizem Injection) (08/19/22 01:43) Manual Differential (08/19/22 01:42) Vital Signs/I&O 08/19/22 08/19/22 08/19/22 08/19/22 01:29 01:29 01:29 01:53 Temp 36.3 Pulse 135 146 Resp 38 B/P (MAP) 151/72 (98) 120/73 Pulse Ox 95 95 O2 Delivery Nasal Cannula Nasal Cannula Nasal Cannula O2 Flow Rate 2.00 2.00 2.00 08/19/22 02:33 Pulse 102 Resp 23 B/P (MAP) 113/36 Pulse Ox 98 O2 Delivery Nasal Cannula O2 Flow Rate 2.00 Progress Progress Note #1: Progress Note Obtain basic labs as well as electrocardiogram and chest x-ray. Electrocardiogram shows atrial fibrillation with rapid ventricular rate. We karly l order a dose of diltiazem 10 mg IV to try and help with the atrial fibrillation with RVR. Consultation 30 for labs showed signs of heart damage or her heart rate was not responding to the IV push medicine she may need to be on a drip of medication to help with her heart rate. Progress Note #2: Progress Note On my review of her 1 view chest x-ray she has no acute infiltrate or effusion. This appears similar to imaging done earlier this month during her admission at [facility]. Progress Note #3: Progress Note Labs show elevated white blood cell count but it is improved from when she was admitted to the hospital. Considering she is still on steroids the elevation is likely due to this. Her chemistry panel and coags did not show acute significant abnormality to account for her atrial fibrillation. Chest x-ray does not show any acute infiltrate or effusion. Patient reports feeling better as her heart rate has come down with the dose of diltiazem. With negative cardiac enzymes for acute myocardial infarction we will discharge to home for patient to continue medicines that she already takes. Encouraged to call cardiology and follow-up about her paroxysmal atrial fibrillation. Initial ECG Impression Date: Aug 19, 2022 Initial ECG Impression Time: 01:35 Initial ECG Rate: 133 Initial ECG Rhythm: A Fib/Flutter Initial ECG Comparisson: Changed Comment 8-year-old father with rapid ventricular response and a heart rate of 133 bpm. There is baseline wander on the tracing due to patient's breathing. QT interval 283 ms with a QTc interval 361 ms. There is no acute ST elevation. Compared to prior tracings from earlier this month she has gone from sinus tachycardia to atrial fibrillation. Diagnostic Imaging Diagonstic Imaging: Xray Plain Films/CT/US/NM/MRI: chest Comments On my review of her 1 view chest x-ray this appears similar to prior tracings in the system with COPD changes but no acute infiltrate or effusion. Reviewed: Reviewed by Me Departure Impression Primary Impression: Paroxysmal atrial fibrillation with rapid ventricular response Additional Impressions: Chest pain Qualified Codes: R07.9 - Chest pain, unspecified Chronic dyspnea Disposition: 01 HOME, SELF-CARE Condition: Improved Departure-Patient Inst. Decision time for Depature: 02:32 Referrals: FLAKITA GUZMÁN MD FACP FAC CCDS MANOHAR URBAN MD (PCP/Family) Primary Care Physician Patient Instructions: Atrial Fibrillation and Atrial Flutter ED Add. Discharge Instructions: Your heart rate was elevated and you were having atrial fibrillation (an irregular heart beat that is usually fast). Your tests do not show pneumonia, heart attack. Follow up with Cardiology for continued concerns and if not improving they may adjust your blood pressure medicines to include medicine for your heart rate. continue taking Aspiring. All discharge instructions reviewed with patient and/or family. Voiced understanding. YANI KELLEY MD Aug 19, 2022 01:50
[2022-08-19 01:51] LABS: BASOPHILS % (AUTO) 0 % (0-10); EOSINOPHILS % (AUTO) 0 % (0-10); HEMATOCRIT 37 % (35-52); HEMOGLOBIN 11.9 g/dL (11.5-16.0); LYMPHOCYTES # (AUTO) 0.6 X 10^3 (1.0-4.0); LYMPHOCYTES % (AUTO) 3 % (12-44); MEAN CORPUSCULAR HEMOGLOBIN 30 pg (25-34); MEAN CORPUSCULAR HGB CONC 32 g/dL (32-36); MEAN CORPUSCULAR VOLUME 93 fL (80-99); MEAN PLATELET VOLUME 10.3 fL (9.0-12.2); MONOCYTES # (AUTO) 1.1 X 10^3 (0.0-1.0); MONOCYTES % (AUTO) 6 % (0-12); NEUTROPHILS # (AUTO) 15.5 X 10^3 (1.8-7.8); NEUTROPHILS % (AUTO) 90 % (42-75); PLATELET COUNT 313 10^3/uL (130-400); WHITE BLOOD COUNT 17.1 10^3/uL (4.3-11.0)
[2022-08-19 02:04] LABS: INR 0.9 (0.8-1.4); PROTHROMBIN TIME PATIENT 12.6 SEC (12.2-14.7)
[2022-08-19 02:13] LABS: CALCIUM 9.7 MG/DL (8.5-10.1); CREATININE SERUM 0.93 MG/DL (0.60-1.30); POTASSIUM 4.2 MMOL/L (3.6-5.0)
[2022-08-19 02:14] LABS: ALBUMIN 4.3 GM/DL (3.2-4.5); BILIRUBIN,TOTAL 0.3 MG/DL (0.1-1.0); MAGNESIUM 1.9 MG/DL (1.6-2.4); TOTAL PROTEIN 6.7 GM/DL (6.4-8.2)
[2022-08-19 02:17] LABS: LYMPHOCYTES % (MANUAL) 1 %; MONOCYTES % (MANUAL) 3 %; NEUTROPHILS % (MANUAL) 96 %
[2022-08-19 02:33] VITALS: BP 113/36
--- NOTE | 2022-08-19 06:13 | Diagnostic Imaging Report ---
INDICATION: Chest pain and shortness of breath. Comparison is made with prior examination of 08/01/2022. FINDINGS: The heart size is normal. The mediastinum is unremarkable. There is no pleural effusion or pneumothorax. There is a calcified granuloma in the right upper lobe. There is scoliosis. IMPRESSION: No acute cardiopulmonary abnormality Dictated by: Dictated on workstation # [id number]
== END 2022-08-19 02:35 | disposition home or self-care (01) ==
LOC: EDUNIT# 01:31 → ER FS 01:33
DX: I48.0 Paroxysmal atrial fibrillation (principal); R06.09 Other forms of dyspnea; D72.829 Elevated white blood cell count, unspecified; J44.9 Chronic obstructive pulmonary disease, unspecified; Z99.81 Dependence on supplemental oxygen
CPT/HCPCS: 36415; 71045; 80053; 83735; 83880; 84484; 85007; 85027; 85610; 85730; 93005; 93041; 96374

== ENCOUNTER → 2022-11-09 | Outpatient (CLI) | payer MEDICARE, OTHER ==
[~2022-11-09] MED LIST changes: +ALBU8.5H6 IH; -RT-ALBUINH IH
== END ==
LOC: CARD 11:33
PROVIDERS: ATTEND Nurse Practitioner Family
DX: R00.2 Palpitations (principal); I48.0 Paroxysmal atrial fibrillation; I48.92 Unspecified atrial flutter
CPT/HCPCS: 93225; 93226

== ENCOUNTER 2023-03-15 23:06 | Emergency (ER) | payer MEDICARE, OTHER ==
[~2023-03-15] VITALS: Ht 157.4 cm; Wt 45.3 kg
[2023-03-15] MEDS ORDERED: PROMETHAZINE INJ 25 MG/ML (PHENERGAN) AMP IVP STA (23:17)
[2023-03-15] MEDS ORDERED: FAMOTIDINE 20MG/2ML IV (PEPCID) IV STA (23:17)
--- NOTE | 2023-03-15 23:21 | ED GI ---
General Stated Complaint: N/V/D Source of Information: Patient, EMS Exam Limitations: No Limitations History of Present Illness Date Seen by Provider: Mar 15, 2023 Time Seen by Provider: 23:07 Initial Comments 77-year-old female with past medical history of chronic hypoxic respiratory failure on 3 L O2, COPD, A-fib on Eliquis coming in via EMS from home due to nonbloody nonbilious vomiting and nonbloody diarrhea. Started abruptly around 8:30 PM tonight. Has some abdominal cramping with it but no severe pain. She is unsure if it is anything she ate, no one else in the family sick. Otherwise denying any chest pain, shortness of breath, focal weakness or numbness, rash, fever, chills, headache, vision changes, neck stiffness, dysuria, or any other concerns. Allergies and Home Medications Allergies Coded Allergies: No Known Drug Allergies (Unverified , 11/10/19) Patient Home Medication List Home Medication List Reviewed: Yes Albuterol Sulfate (Proventil Hfa) 6.7 Gm Hfa.aer.ad, 2 PUFF INH Q4H PRN for SHOR TNESS OF BREATH, (Reported) Entered as Reported by: GLEA DIEGO on 08/02/22 1045 Aspirin (Aspirin) 325 Mg Tablet, 325 MG PO DAILY, (Reported) Entered as Reported by: GELA DIEGO on 08/02/22 1045 Calcium Carbonate/Vitamin D3 (Calcium + Vitamin D Tablet) 600 Mg Calcium-5 Mcg (200 Unit) Tablet, 1 EA PO DAILY, (Reported) Entered as Reported by: GELA DIEGO on 08/02/22 1045 Cetirizine HCl (Cetirizine HCl) 10 Mg Tablet, 10 MG PO DAILY, (Reported) Entered as Reported by: GELA DIEGO on 08/02/22 1045 Famotidine (Famotidine) 20 Mg Tablet, 20 MG PO DAILY, (Reported) Entered as Reported by: GELA DIEGO on 08/02/22 1155 Fluticasone Propionate (Flonase Allergy Relief) 50 Mcg/Actuation [place].susp, 1-2 SPRAY NSEACH DAILY PRN for CONGESTION, (Reported) Entered as Reported by: GELA DIEGO on 08/02/22 1047 Fluticasone/Umeclidin/Vilanter (Trelegy Ellipta 100-62.5-25) 100-62.5 Blst.w.dev, 1 PUFF INH DAILY, (Reported) Entered as Reported by: GELA DIEGO on 08/02/22 104 Furosemide (Furosemide) 20 Mg Tablet, 20-40 MG PO DAILY PRN for FLUID RETENTION, (Reported) Entered as Reported by: GELA DIEGO on 08/02/22 1045 Guaifenesin (Mucinex) 600 Mg Tab.er.12h, 600 MG PO BID, (Reported) Entered as Reported by: AMADO DIAS on 11/13/19 0901 Hydrocodone/Acetaminophen (Hydrocodone-Acetamin 5-325 mg) 5 Mg-325 Mg Tablet, 1 TAB PO Q6H PRN for PAIN-MODERATE (5-7) Prescribed by: DELANO PRITCHETT on 08/08/22 1414 Ipratropium/Albuterol Sulfate (Iprat-Albut 0.5-3(2.5) mg/3 ml) 0.5 Mg-3 Mg (2.5 Mg Base)/3 Ml Ampul.neb, 3 ML IH Q6H, (Reported) Entered as Reported by: GELA DIEGO on 08/02/22 104 Levothyroxine Sodium (Levothyroxine Sodium) 50 Mcg Tablet, 50 MCG PO DAILY, (Reported) Entered as Reported by: GELA DIEGO on 08/02/22 104 Lisinopril (Lisinopril) 10 Mg Tablet, 10 MG PO DAILY, (Reported) Entered as Reported by: GELA DIEGO on 08/02/22 104 Lorazepam (Ativan) 0.5 Mg Tablet, 0.5 MG PO DAILY PRN for ANXIETY, (Reported) Entered as Reported by: GELA DIEGO on 08/02/22 104 Montelukast Sodium (Montelukast Sodium) 10 Mg Tablet, 10 MG PO DAILY, (Reported) Entered as Reported by: AMADO DIAS on 11/13/19 0900 Multivits-Min/Iron/FA/Lutein (Centrum Silver Women Tablet) 8 Mg Iron-400 Mcg-300 Mcg Tablet, 1 EACH PO DAILY, (Reported) Entered as Reported by: GELA DIEGO on 08/02/22 104 Ondansetron (Ondansetron Odt) 4 Mg Tab.rapdis, 4 MG SL Q6H PRN for NAUSEA/VOMITING Prescribed by: ESTUARDO SMITH on 03/16/23 0211 Prednisone (Prednisone) 20 Mg Tab, 40 MG PO DAILY Prescribed by: DELANO PRITCHETT on 08/08/22 1412 Review of Systems Review of Systems Constitutional: No fever EENTM: No Symptoms Reported Respiratory: No Symptoms Reported Cardiovascular: No Symptoms Reported Gastrointestinal: See HPI Genitourinary: No Symptoms Reported Musculoskeletal: no symptoms reported Skin: no symptoms reported Psychiatric/Neurological: No Symptoms Reported Endocrine: No Symptoms Reported Hematologic/Lymphatic: No Symptoms Reported Past Hxatmpd-Vfwnzf-Tdokxq Hx Patient Social History Tobacco Use?: No Smoking Status: Former Smoker Seasonal Allergies Seasonal Allergies: No Past Medical History Surgery/Hospitalization HX: COPD, palpitations, Paroxysmal atrial fibrillation Surgeries: Yes Appendectomy, Gallbladder, Hysterectomy, Orthopedic Respiratory: Yes Pneumonia, COPD Cardiac: No Hypertension Neurological: No Genitourinary: No Gastrointestinal: No Musculoskeletal: No Endocrine: No HEENT: No Dysphagia Cancer: No Psychosocial: No Integumentary: No Physical Exam Vital Signs Vital Signs - First Documented 03/15/23 23:07 Temp 36.4 Pulse 84 Resp 24 B/P (MAP) 95/77 (83) Pulse Ox 94 O2 Delivery Nasal Cannula O2 Flow Rate 3.00 Capillary Refill : Height/Weight/BMI Height: '" Weight: lbs. oz. kg; 14.59 BMI Method: General Appearance: no apparent distress, thin HEENT: PERRL/EOMI, normal ENT inspection, pharynx normal Neck: non-tender, full range of motion, supple, normal inspection Respiratory: chest non-tender, lungs clear, normal breath sounds, no respiratory distress, no accessory muscle use Cardiovascular: regular rate, rhythm, no edema, no murmur Gastrointestinal: normal bowel sounds, non tender, soft; No distended, No guarding, No rebound Extremities: normal range of motion, non-tender, normal inspection, no pedal edema, no calf tenderness, normal capillary refill Back: normal inspection, no CVA tenderness Neurologic/Psychiatric: no motor/sensory deficits, alert, normal mood/affect Skin: normal color, warm/dry Progress/Results/Core Measures Results/Orders Lab Results Laboratory Tests Test 03/15/23 23:15 Range/Units White Blood Count 28.8 H 4.3-11.0 10^3/uL Red Blood Count 3.95 3.80-5.11 10^6/uL Hemoglobin 11.1 L 11.5-16.0 g/dL Hematocrit 35 35-52 % Mean Corpuscular Volume 90 80-99 fL Mean Corpuscular Hemoglobin 28 25-34 pg Mean Corpuscular Hemoglobin Concent 31 L 32-36 g/dL Red Cell Distribution Width 14.3 10.0-14.5 % Platelet Count 392 130-400 10^3/uL Mean Platelet Volume 11.1 9.0-12.2 fL Immature Granulocyte % (Auto) 1 % Neutrophils (%) (Auto) 87 H 42-75 % Lymphocytes (%) (Auto) 4 L 12-44 % Monocytes (%) (Auto) 8 0-12 % Eosinophils (%) (Auto) 1 0-10 % Basophils (%) (Auto) 0 0-10 % Neutrophils # (Auto) 25.1 H 1.8-7.8 10^3/uL Lymphocytes # (Auto) 1.1 1.0-4.0 10^3/uL Monocytes # (Auto) 2.2 H 0.0-1.0 10^3/uL Eosinophils # (Auto) 0.2 0.0-0.3 10^3/uL Basophils # (Auto) 0.1 0.0-0.1 10^3/uL Immature Granulocyte # (Auto) 0.2 H 0.0-0.1 10^3/uL Neutrophils % (Manual) 80 % Lymphocytes % (Manual) 8 % Monocytes % (Manual) 5 % Eosinophils % (Manual) 1 % Metamyelocytes % 1 % Band Neutrophils 5 % Toxic Granulation 2+ Platelet Estimate NORMAL Blood Morphology Comment NORMAL Sodium Level 140 135-145 MMOL/L Potassium Level 4.6 3.6-5.0 MMOL/L Chloride Level 101 98-107 MMOL/L Carbon Dioxide Level 28 21-32 MMOL/L Anion Gap 11 5-14 MMOL/L Blood Urea Nitrogen 19 H 7-18 MG/DL Creatinine 0.55 L 0.60-1.30 MG/DL Estimat Glomerular Filtration Rate 94 BUN/Creatinine Ratio 35 Glucose Level 169 H 70-105 MG/DL Calcium Level 9.2 8.5-10.1 MG/DL Corrected Calcium 9.3 8.5-10.1 MG/DL Magnesium Level 1.8 1.6-2.4 MG/DL Total Bilirubin 0.3 0.1-1.0 MG/DL Aspartate Amino Transf (AST/SGOT) 29 5-34 U/L Alanine Aminotransferase (ALT/SGPT) 14 0-55 U/L Alkaline Phosphatase 187 H 40-136 U/L C-Reactive Protein 0.36 <0.50 MG/DL Total Protein 6.8 6.4-8.2 GM/DL Albumin 3.9 3.2-4.5 GM/DL Lipase 22 8-78 U/L My Orders Orders - ESTUARDO SMITH MD Cbc With Automated Diff (03/15/23 23:17) Comprehensive Metabolic Panel (03/15/23 23:17) Lipase (03/15/23 23:17) Magnesium (03/15/23 23:17) Crp Fs (03/15/23 23:17) Abdomen (Kub) 1 View (03/15/23 23:17) Promethazine Injection (Phenergan Injec (03/15/23 23:17) Famotidine Injection (Pepcid Injection) (03/15/23 23:17) Ed Iv/Invasive Line Start (03/15/23 23:17) Manual Differential (03/15/23 23:15) Ondansetron Injection (Zofran Injectio (03/15/23 23:45) Iohexol Injection (Omnipaque 350 Mg/Ml 1 (03/16/23 00:00) Ns (Ivpb) (Sodium Chloride 0.9% Ivpb Bag (03/16/23 00:00) Received Contrast (Hold Metformin- Contr (03/16/23 00:00) Ct Abdomen/Pelvis W (03/16/23 00:01) Medications Given in ED Current Medications Medications Dose Ordered Sig/Vinicio Route Start Time Stop Time Status Last Admin Dose Admin Iohexol 80 ml ONCE ONCE IV 03/16/23 00:00 03/16/23 00:01 DC 03/16/23 00:11 80 ML Ondansetron HCl 4 mg Q2HR PRN IVP 03/15/23 23:45 03/16/23 01:59 4 MG Sodium Chloride 100 ml ONCE ONCE IV 03/16/23 00:00 03/16/23 00:01 DC 03/16/23 00:11 100 ML Vital Signs/I&O 03/15/23 23:07 Temp 36.4 Pulse 84 Resp 24 B/P (MAP) 95/77 (83) Pulse Ox 94 O2 Delivery Nasal Cannula O2 Flow Rate 3.00 03/16/23 00:00 Intake Total 500 ml Balance 500 ml Progress Progress Note : Progress Note 77-year-old female with above history coming in due to vomiting and diarrhea. ABCs were intact and vitals were stable on presentation. Physical exam reassuring including a soft and nontender abdomen. An IV was placed and basic labs were obtained including a white blood cell count is quite elevated just under 29,000, normal creatinine, essentially normal electrolytes, normal inflammatory markers such as CRP. She was given a liter of IV fluids that was started by EMS and finished here. Given Phenergan followed by Zofran later on for nausea. Never had any vomiting in the ER, but did have a few episodes of diarrhea that were nonbloody. CT abdomen pelvis ordered to assess for obstruction versus infection versus some other etiology. On my interpretation of the CT I do not see any obvious free air in her abdomen. The stat rad read of the CT imaging was consistent with gastroenteritis. Given the lack of bloody stools, this is likely viral in etiology, and antibiotics likely will not help. She is tolerating some water while in the ER. She remains to be not tachycardic, and actually mildly hypertensive, and I believe she is euvolemic. I believe she is otherwise stable for discharge with outpatient follow-up. She was sent home with strict return precautions. Prescription sent for nausea medication. Diagnostic Imaging Diagonstic Imaging: CT (abd/pelvis) Departure Impression Primary Impression: Vomiting and diarrhea Additional Impressions: Gastroenteritis Leukocytosis Qualified Codes: D72.823 - Leukemoid reaction Disposition: HOME, SELF-CARE Condition: Stable Departure-Patient Inst. Decision time for Depature: 03:10 Referrals: SELF,MANOHAR PAULINO (PCP/Family) Primary Care Physician Patient Instructions: Viral Gastroenteritis, Adult (DC) Add. Discharge Instructions: This is likely caused by a virus that causes the vomiting and diarrhea. Most often it takes anywhere from 24 hours to 3 days to get better. It is possible to last a week ago. Take small but frequent sips of fluids. If you get to a point where you have completely black stools or completely bloody stools or complete blood with vomit, then I would want you to come back to the ER. Nausea medicines were sent to your pharmacy. You can also take [id number] loperamide if the diarrhea is not slowing down. Be careful with this however, because it can go too far and cause constipation. Scripts Ondansetron (Ondansetron Odt) 4 Mg Tab.rapdis 4 MG SL Q6H PRN for NAUSEA/VOMITING for 5 Days, #20 TAB Prov: ESTUARDO SMITH MD 03/16/23 Work/School Note: Family Work Note Patient Received Medical Care In the Emergency Department On: Mar 16, 2023 Patient Will Be Able to Return to Work/School On: Mar 17, 2023 ESTUARDO SMITH MD Mar 15, 2023 23:21
[2023-03-15 23:28] LABS: BASOPHILS # (AUTO) 0.1 10^3/uL (0.0-0.1); BASOPHILS % (AUTO) 0 % (0-10); EOSINOPHILS # (AUTO) 0.2 10^3/uL (0.0-0.3); EOSINOPHILS % (AUTO) 1 % (0-10); HEMATOCRIT 35 % (35-52); HEMOGLOBIN 11.1 g/dL (11.5-16.0); LYMPHOCYTES # (AUTO) 1.1 10^3/uL (1.0-4.0); LYMPHOCYTES % (AUTO) 4 % (12-44); MEAN CORPUSCULAR HEMOGLOBIN 28 pg (25-34); MEAN CORPUSCULAR HGB CONC 31 g/dL (32-36); MEAN CORPUSCULAR VOLUME 90 fL (80-99); MEAN PLATELET VOLUME 11.1 fL (9.0-12.2); MONOCYTES # (AUTO) 2.2 10^3/uL (0.0-1.0); MONOCYTES % (AUTO) 8 % (0-12); NEUTROPHILS # (AUTO) 25.1 10^3/uL (1.8-7.8); NEUTROPHILS % (AUTO) 87 % (42-75); PLATELET COUNT 392 10^3/uL (130-400); WHITE BLOOD COUNT 28.8 10^3/uL (4.3-11.0)
[2023-03-15] MEDS ORDERED: ONDANSETRON 4 MG/2 ML (SDV) Z0FRAN IVP PRN (23:45)
[2023-03-15 23:48] LABS: BAND NEUTROPHILS 5 %; EOSINOPHILS % (MANUAL) 1 %; LYMPHOCYTES % (MANUAL) 8 %; METAMYELOCYTES % 1 %; MONOCYTES % (MANUAL) 5 %; NEUTROPHILS % (MANUAL) 80 %; PLATELET ESTIMATE NORMAL
[2023-03-15 23:49] LABS: RBC MORPH NORMAL; TOXIC GRANULATION/VACUOLAZATIO 2+
[2023-03-15 23:51] LABS: BILIRUBIN,TOTAL 0.3 MG/DL (0.1-1.0); CALCIUM 9.2 MG/DL (8.5-10.1); CREATININE SERUM 0.55 MG/DL (0.60-1.30); MAGNESIUM 1.8 MG/DL (1.6-2.4)
[2023-03-15 23:52] LABS: POTASSIUM 4.6 MMOL/L (3.6-5.0)
[2023-03-15 23:53] LABS: ALBUMIN 3.9 GM/DL (3.2-4.5); TOTAL PROTEIN 6.8 GM/DL (6.4-8.2)
[2023-03-16] MEDS ORDERED: NS 100 ML (IVPB) BAG IV ONE
[2023-03-16] MEDS ORDERED: IOHEXOL 350 MG/ML 100 ML (OMNIPAQUE 350) VIAL IV ONE
[2023-03-16] MEDS ORDERED: HOLD METFORMIN - RECEIVED CONTRAST 20 ML VIAL IV SCH
[2023-03-16] MEDS ORDERED: ONDA4TAB11 SL (02:11)
[2023-03-16] MEDS ORDERED: RX-ONDANSETRON 4 MG ODT (ZOFRAN) PPK #4 PO STA (03:07)
[2023-03-16 03:11] VITALS: BP 146/92
--- NOTE | 2023-03-16 07:16 | Diagnostic Imaging Report ---
CLINICAL INDICATIONS: Patient with vomiting and diarrhea. EXAM: X-ray of the abdomen with upright view only. COMPARISON: None. FINDINGS: There is a nonobstructed bowel gas pattern. There is no evidence of abdominal free air. Nonspecific air-fluid levels overlying the right colon and transverse colon. There are no focal calcifications overlying the expected regions/ pathways of both kidneys, ureters, and bladder regions. There is levoscoliosis of the lumbar spine. There are hypertrophic spurs involving the spine. IMPRESSION: 1: There are nonspecific air-fluid levels overlying the right colon and transverse colon. These findings may be related to patient's history of diarrhea. 2: Otherwise, there is no radiographic evidence for acute abdominal/ pelvic process or urinary tract stones. There is no significant stool load. Dictated by: Dictated on workstation # [id number]
--- NOTE | 2023-03-16 08:15 | Diagnostic Imaging Report ---
CLINICAL INDICATIONS: Patient with nausea, vomiting and diarrhea since 1900 hours. EXAM: Axial CT scan abdomen and pelvis performed with 80 mL of Omnipaque 350 IV contrast. Sagittal and coronal reformatted images are created. Auto Exposure Controls were utilized during the CT exam to meet ALARA standards for radiation dose reduction. COMPARISON: X-ray of the abdomen dated 03/15/2023. CT angiogram of the chest dated 08/01/2022. FINDINGS: There is mild atelectasis or scarring involving both lung bases. Centrilobular emphysema is noted. There are degenerative spurs involving both hips. There is lower lumbar spine facet arthropathy. There are hypertrophic spurs involving the visualized lower thoracic spine and lumbar spine. There is prominent intrahepatic and extrahepatic ductal size. Common hepatic duct measures 10 mm which is upper limits of normal postcholecystectomy. These findings appear similar to the CT angiogram of the chest dated 08/01/2022. The liver, spleen, pancreas, and adrenal glands unremarkable. There are bilateral renal cysts seen. The largest one involves the inferior aspect of left kidney which measures 1.7 cm in greatest axial dimensions. There is no hydronephrosis seen. Basilar calcification is noted involving left kidney. The bladder is fluid-filled and otherwise unremarkable. Uterus is surgically absent. There is diffuse wall thickening seen from the rectum all the way to the mid transverse colon. There is also mild fat stranding and increased vascularity involving these areas of colonic wall thickening. There is wall thickening involving the stomach and antrum. There is no intestinal obstruction. There is no intra-abdominal free air or free fluid. There is no significant lymphadenopathy. Extraabdominal and extrapelvic soft tissue structures are unremarkable. IMPRESSION: 1: There is diffuse wall thickening seen from the mid transverse colon to the rectum concerning for colitis. 2: There is wall thickening involving the stomach which may be related to gastritis versus contraction. I agree with [employer] report. Dictated by: Dictated on workstation # [id number]
== END 2023-03-16 03:12 | disposition home or self-care (01) ==
LOC: EDUNIT# 23:06 → ER FS 23:09
DX: K52.9 Noninfective gastroenteritis and colitis, unspecified (principal); J96.11 Chronic respiratory failure with hypoxia; J44.9 Chronic obstructive pulmonary disease, unspecified; I10 Essential (primary) hypertension; I48.0 Paroxysmal atrial fibrillation; Z79.01 Long term (current) use of anticoagulants; Z99.81 Dependence on supplemental oxygen; Z87.891 Personal history of nicotine dependence; Z90.49 Acquired absence of other specified parts of digestive tract
CPT/HCPCS: 36415; 74018; 74177; 80053; 83690; 83735; 85007; 85027; 86141; Q9967

== ENCOUNTER → 2023-06-19 | Outpatient (CLI) | payer MEDICARE ==
[~2023-06-19] MED LIST changes: +ONDA4TAB11 SL
== END ==
LOC: CARDFS 13:42
PROVIDERS: ATTEND Internal Medicine Cardiovascular Disease
DX: I27.21 Secondary pulmonary arterial hypertension (principal)
CPT/HCPCS: 93306

== ENCOUNTER 2023-08-04 13:56 | Emergency (ER) | payer MEDICARE ==
[~2023-08-04] VITALS: Ht 160 cm; Wt 40.8 kg
[2023-08-04] MEDS ORDERED: CEFEPIME INJECTION 1,000 MG in NS (IVPB) 50 ML 50 ML IV ONE (14:15)
[2023-08-04] MEDS ORDERED: RT-Ipratropium/Albuterol NEB 3 ML VIAL INH ONE (14:15)
--- NOTE | 2023-08-04 14:18 | ED Respiratory ---
General Chief Complaint: Respiratory Problems Stated Complaint: SOB Source: patient, caregiver Exam Limitations: no limitations History of Present Illness Date Seen by Provider: Aug 04, 2023 Time Seen by Provider: 13:59 Initial Comments 78yoF with PMH of chronic hypoxic respiratory failure on 3 L O2, end-stage COPD, A-fib on Eliquis coming in due to shortness of breath. She has been feeling worse all month, went to her primary doctor in June, received a shot of something. Went back to her doctor on Sunday and has been on dexamethasone since then, 4 mg twice a day. She took a dose this morning. She has been holding her Lasix, took a dose this morning as well and has urinated multiple times today. She still feeling more short of breath than usual. Has been coughing, bringing nothing up. Does have chest tightness as well which is constant. Denies any fever, nausea, vomiting, diarrhea, focal weakness or numbness, or any other concerns. Allergies and Home Medications Allergies Coded Allergies: No Known Drug Allergies (Unverified , 11/10/19) Patient Home Medication List Home Medication List Reviewed: Yes Albuterol Sulfate (Proventil Hfa) 6.7 Gm Hfa.aer.ad, 2 PUFF INH Q4H PRN for SHORTNESS OF BREATH, (Reported) Entered as Reported by: GELA DIEGO on 08/02/22 1045 Aspirin (Aspirin) 325 Mg Tablet, 325 MG PO DAILY, (Reported) Entered as Reported by: GELA DIEGO on 08/02/22 1045 Calcium Carbonate/Vitamin D3 (Calcium + Vitamin D Tablet) 600 Mg Calcium-5 Mcg (200 Unit) Tablet, 1 EA PO DAILY, (Reported) Entered as Reported by: GELA DIEGO on 08/02/22 1045 Cetirizine HCl (Cetirizine HCl) 10 Mg Tablet, 10 MG PO DAILY, (Reported) Entered as Reported by: GELA DIEGO on 08/02/22 104 Famotidine (Famotidine) 20 Mg Tablet, 20 MG PO DAILY, (Reported) Entered as Reported by: GELA DIEGO on 08/02/22 1155 Fluticasone Propionate (Flonase Allergy Relief) 50 Mcg/Actuation [place].susp, 1-2 SPRAY NSEACH DAILY PRN for CONGESTION, (Reported) Entered as Reported by: GELA DIEGO on 08/02/22 1047 Fluticasone/Umeclidin/Vilanter (Trelegy Ellipta 100-62.5-25) 100-62.5 Blst.w.dev, 1 PUFF INH DAILY, (Reported) Entered as Reported by: GELA DIEGO on 08/02/22 104 Furosemide (Furosemide) 20 Mg Tablet, 20-40 MG PO DAILY PRN for FLUID RETENTION, (Reported) Entered as Reported by: GELA DIEGO on 08/02/22 1045 Guaifenesin (Mucinex) 600 Mg Tab.er.12h, 600 MG PO BID, (Reported) Entered as Reported by: AMADO DIAS on 11/13/19 0901 Hydrocodone/Acetaminophen (Hydrocodone-Acetamin 5-325 mg) 5 Mg-325 Mg Tablet, 1 TAB PO Q6H PRN for PAIN-MODERATE (5-7) Prescribed by: DELANO PRITCHETT on 08/08/22 1414 Ipratropium/Albuterol Sulfate (Iprat-Albut 0.5-3(2.5) mg/3 ml) 0.5 Mg-3 Mg (2.5 Mg Base)/3 Ml Ampul.neb, 3 ML IH Q6H, (Reported) Entered as Reported by: GELA DIEGO on 08/02/22 1045 Levothyroxine Sodium (Levothyroxine Sodium) 50 Mcg Tablet, 50 MCG PO DAILY, (Reported) Entered as Reported by: GELA DIEGO on 08/02/22 104 Lisinopril (Lisinopril) 10 Mg Tablet, 10 MG PO DAILY, (Reported) Entered as Reported by: GELA DIEGO on 08/02/22 104 Lorazepam (Ativan) 0.5 Mg Tablet, 0.5 MG PO DAILY PRN for ANXIETY, (Reported) Entered as Reported by: GELA DIEGO on 08/02/22 104 Montelukast Sodium (Montelukast Sodium) 10 Mg Tablet, 10 MG PO DAILY, (Reported) Entered as Reported by: AMADO DIAS on 11/13/19 0900 Multivits-Min/Iron/FA/Lutein (Centrum Silver Women Tablet) 8 Mg Iron-400 Mcg-300 Mcg Tablet, 1 EACH PO DAILY, (Reported) Entered as Reported by: GELA DIEGO on 08/02/22 1047 Ondansetron (Ondansetron Odt) 4 Mg Tab.rapdis, 4 MG SL Q6H PRN for NAUSEA/VOMITING Prescribed by: ESTUARDO SMITH on 03/16/23 0211 Prednisone (Prednisone) 20 Mg Tab, 40 MG PO DAILY Prescribed by: DELANO PRITCHETT on 08/08/22 1412 Review of Systems Review of Systems Constitutional: No fever EENTM: no symptoms reported Respiratory: cough, short of breath Cardiovascular: chest pain Gastrointestinal: no symptoms reported Genitourinary: no symptoms reported Musculoskeletal: no symptoms reported Skin: no symptoms reported Psychiatric/Neurological: No Symptoms Reported Past Npghrrg-Tuhdgf-Uxkahv Hx Seasonal Allergies Seasonal Allergies: No Past Medical History Surgery/Hospitalization HX: COPD, palpitations, Paroxysmal atrial fibrillation Surgeries: Yes Appendectomy, Gallbladder, Hysterectomy, Orthopedic Respiratory: Yes Pneumonia, COPD Cardiac: No Hypertension Neurological: No Genitourinary: No Gastrointestinal: No Musculoskeletal: No Endocrine: No HEENT: No Dysphagia Cancer: No Psychosocial: No Integumentary: No Physical Exam Vital Signs - First Documented 08/04/23 13:58 Temp 36.8 Pulse 119 Resp 22 B/P (MAP) 162/96 (118) Pulse Ox 92 O2 Delivery Nasal Cannula O2 Flow Rate 3.00 Capillary Refill : Height: '" Weight: lbs. oz. kg; 18.00 BMI Method: General Appearance: moderate distress, thin, other (chronically ill appearing) Eyes: Bilateral Eye Normal Inspection HEENT: PERRL/EOMI, normal ENT inspection, pharynx normal Neck: non-tender, full range of motion, supple, normal inspection Respiratory: chest non-tender, respiratory distress, accessory muscle use, wheezing Cardiovascular: regular rate, rhythm Gastrointestinal: normal bowel sounds, non tender, soft Extremities: normal range of motion, non-tender, normal inspection, no pedal edema, no calf tenderness, normal capillary refill Neurologic/Psychiatric: no motor/sensory deficits, alert, normal mood/affect, oriented x 3 Skin: normal color, warm/dry Focused Exam Lactate Level 08/04/23 14:13: Lactic Acid Level 3.21*H Lactic Acid Level Laboratory Tests Test 08/04/23 14:13 Lactic Acid Level 3.21 MMOL/L (0.50-2.00) *H Progress/Results/Core Measures Suspected Sepsis SIRS Temperature: Pulse: Respiratory Rate: Laboratory Tests 08/04/23 14:13: White Blood Count 13.7H Blood Pressure / Mean: 08/04/23 14:13: Lactic Acid Level 3.21*H Laboratory Tests 08/04/23 14:13: Creatinine 0.45L, INR Comment 0.9, Platelet Count 522H, Total Bilirubin < 0.2 Results/Orders Lab Results Laboratory Tests Test 08/04/23 14:13 Range/Units White Blood Count 13.7 H 4.3-11.0 10^3/uL Red Blood Count 3.93 3.80-5.11 10^6/uL Hemoglobin 11.4 L 11.5-16.0 g/dL Hematocrit 36 35-52 % Mean Corpuscular Volume 91 80-99 fL Mean Corpuscular Hemoglobin 29 25-34 pg Mean Corpuscular Hemoglobin Concent 32 32-36 g/dL Red Cell Distribution Width 13.7 10.0-14.5 % Platelet Count 522 H 130-400 10^3/uL Mean Platelet Volume 10.1 9.0-12.2 fL Immature Granulocyte % (Auto) 2 % Neutrophils (%) (Auto) 90 H 42-75 % Lymphocytes (%) (Auto) 4 L 12-44 % Monocytes (%) (Auto) 5 0-12 % Eosinophils (%) (Auto) 0 0-10 % Basophils (%) (Auto) 0 0-10 % Neutrophils # (Auto) 12.4 H 1.8-7.8 10^3/uL Lymphocytes # (Auto) 0.5 L 1.0-4.0 10^3/uL Monocytes # (Auto) 0.6 0.0-1.0 10^3/uL Eosinophils # (Auto) 0.0 0.0-0.3 10^3/uL Basophils # (Auto) 0.0 0.0-0.1 10^3/uL Immature Granulocyte # (Auto) 0.2 H 0.0-0.1 10^3/uL Neutrophils % (Manual) 89 % Lymphocytes % (Manual) 5 % Monocytes % (Manual) 6 % Prothrombin Time 13.0 12.2-14.7 SEC INR Comment 0.9 0.8-1.4 Activated Partial Thromboplast Time 24 24-35 SEC Sodium Level 139 135-145 MMOL/L Potassium Level 4.2 3.6-5.0 MMOL/L Chloride Level 96 L 98-107 MMOL/L Carbon Dioxide Level 30 21-32 MMOL/L Anion Gap 13 5-14 MMOL/L Blood Urea Nitrogen 24 H 7-18 MG/DL Creatinine 0.45 L 0.60-1.30 MG/DL Estimat Glomerular Filtration Rate 98 BUN/Creatinine Ratio 53 Glucose Level 220 H 70-105 MG/DL Lactic Acid Level 3.21 *H 0.50-2.00 MMOL/L Calcium Level 10.3 H 8.5-10.1 MG/DL Corrected Calcium 8.5-10.1 MG/DL Magnesium Level 2.0 1.6-2.4 MG/DL Total Bilirubin < 0.2 0.1-1.0 MG/DL Aspartate Amino Transf (AST/SGOT) 33 5-34 U/L Alanine Aminotransferase (ALT/SGPT) 27 0-55 U/L Alkaline Phosphatase 137 H 40-136 U/L Troponin I < 0.30 <0.30 NG/ML Pro-B-Type Natriuretic Peptide 1156.0 H <450.0 PG/ML Total Protein 7.6 6.4-8.2 GM/DL Albumin 4.7 H 3.2-4.5 GM/DL Lipase 82 H 8-78 U/L Influenza Type A (RT-PCR) Not Detected Not Detecte Influenza Type B (RT-PCR) Not Detected Not Detecte SARS-CoV-2 RNA (RT-PCR) Not Detected Not Detecte My Orders Orders - ESTUARDO SMITH MD Cbc With Automated Diff (08/04/23 14:13) Comprehensive Metabolic Panel (08/04/23 14:13) Influenza A And B By Pcr (08/04/23 14:13) Covid 19 Inhouse Test (08/04/23 14:13) Magnesium (08/04/23 14:13) Chest 1 View Ap/Pa Only (08/04/23 14:13) Ekg Tracing (08/04/23 14:13) Protime With Inr (08/04/23 14:13) Partial Thromboplastin Time (08/04/23 14:13) O2 (08/04/23 14:13) Monitor-Rhythm Ecg Trace Only (08/04/23 14:13) Ed Iv/Invasive Line Start (08/04/23 14:13) Lipase (08/04/23 14:13) Troponin I Fs (08/04/23 14:13) Probnp Fs (08/04/23 14:13) Lactic Acid Analyzer (08/04/23 14:13) Ipratropium/Albuterol Inh Soln (Ipratrop (08/04/23 14:15) Cefepime Injection (Cefepime Injection) (08/04/23 14:15) Furosemide Injection (Furosemide Injec (08/04/23 14:30) Manual Differential (08/04/23 14:13) Medications Given in ED Current Medications Medications Dose Ordered Sig/Vinicio Route Start Time Stop Time Status Last Admin Dose Admin Albuterol/ Ipratropium 3 ml ONCE ONCE INH 08/04/23 14:15 08/04/23 14:16 DC 08/04/23 14:23 3 ML Cefepime HCl 1000 mg/Sodium Chloride 50 ml @ 100 mls/hr ONCE ONCE IV 08/04/23 14:15 08/04/23 14:44 DC 08/04/23 14:23 100 MLS/HR Furosemide 40 mg ONCE ONCE IVP 08/04/23 14:30 08/04/23 14:31 DC 08/04/23 14:23 40 MG Vital Signs/I&O 08/04/23 08/04/23 08/04/23 13:58 13:58 14:05 Temp 36.8 Pulse 119 Resp 22 B/P (MAP) 162/96 (118) Pulse Ox 92 98 O2 Delivery Nasal Cannula Nasal Cannula Nasal Cannula O2 Flow Rate 3.00 3.00 Capillary Refill : Progress Note : Progress Note 78-year-old female with above history coming in due to respiratory issues. She was tachypneic with increased work of breathing on arrival. She was on her ba seline oxygen with normal oxygen saturation. She did have some wheezing in all lung lobato and some crackles at the bases. An IV was placed and she was given Lasix IV given she has been off of her Lasix for over a week. She also was given a DuoNeb. She took steroids just prior to arrival so she was not given steroids here. Chest x-ray ordered and interpreted by me showing no obvious pneumonia, appears similar to prior. Labs were significant for elevated white blood cell count, normal creatinine, negative troponin, elevated proBNP, elevated lactic acid. Patient was given cefepime as well given concerns for potential infection. Likely this is related to her end-stage COPD and is an exacerbation. I discussed placing her on BiPAP and admitting her to the intensive care unit. I also discussed potentially going home on hospice. The patient is interested in hospice, and does not really want to be admitted to the hospital at this time. She states she has BiPAP at home, so she would plan to just go home on BiPAP for symptom management, she would continue her steroids, and I will write a prescription for antibiotics at home which she is not currently on. I told her to increase her DuoNeb at home from every 6 hours to at least every 4 hours, potentially sooner if she needs. I told her she could change her mind at any time, call 911, and we will reevaluate her for admission at that time. Given how chronically ill the patient appears, hospice would be a good choice for her. She will discuss this with her PCP to try to likely get on it soon. ECG Initial ECG Impression Date: Aug 04, 2023 Initial ECG Impression Time: 14:21 Initial ECG Rate: 106 Initial ECG Rhythm: S.Tach Comment Narrow QRS, normal axis, no significant ST changes or T wave abnormalities Diagnostic Imaging Diagonstic Imaging: Xray (chest) Comments [facility]. [place], [place] NAME: EMMANUEL BROOKS [facility] REC#: [id number] PT STATUS: REG ER : 1945 PHYSICIAN: ESTUARDO SMITH MD ADMIT DATE: 08/04/23/ER FS Draft Date of Exam:08/04/23 CHEST 1 VIEW AP/PA ONLY CLINICAL INDICATION: Patient shortness of air and dyspnea. EXAM: Portable chest x-ray upright view. COMPARISON: Chest x-ray dated there 08/19/2022. FINDINGS: Lungs/pleura: Stable calcified granuloma involving the right upper lobe region. Stable increased lung markings throughout both lungs. Otherwise, lungs are clear. There is no pneumothorax. There is no pleural effusion. Mediastinum: Unremarkable. Pulmonary vasculature: Unremarkable. Heart: Unremarkable. Bones/extrathoracic soft tissue: There degenerative spurs involving the thoracic and lumbar spine. There is left curvature of the lumbar spine.. IMPRESSION: Stable chest x-ray exam with no interval radiographic evidence of acute cardiopulmonary process. Dictated on workstation # [id number] Dict: 08/04/23 1429 Trans: 08/04/23 1438 [facility] [id number] Interpreted by: JORDY BATRES MD Electronically signed by: Departure Impression Primary Impression: COPD exacerbation Additional Impression: Respiratory failure Qualified Codes: J96.21 - Acute and chronic respiratory failure with hypoxia; J96.22 - Acute and chronic respiratory failure with hypercapnia Disposition: HOME, SELF-CARE Condition: Stable Departure-Patient Inst. Decision time for Depature: 15:20 Referrals: MANOHAR URBAN MD (PCP/Family) Primary Care Physician Patient Instructions: COPD Exacerbation, Adult ED Add. Discharge Instructions: Go home and get onto your BiPAP machine. Rest on this is much as you can until you start feeling better. Continue your steroids, and restart your Lasix tomorrow. We will start you on an antibiotic as well which your next dose will be due tonight. Discussed with your doctor if you would like to go onto hospice as we discussed. If you change your mind, you can of course come back to the ER to be reevaluated for admission. Scripts Cefdinir (Cefdinir) 300 Mg Capsule 300 MG PO BID for 7 Days, #14 CAP 0 Refills Prov: ESTUARDO SMITH MD 08/04/23 ESTUARDO SMITH MD Aug 04, 2023 14:17
[2023-08-04 14:20] LABS: BASOPHILS % (AUTO) 0 % (0-10); EOSINOPHILS % (AUTO) 0 % (0-10); HEMATOCRIT 36 % (35-52); HEMOGLOBIN 11.4 g/dL (11.5-16.0); LYMPHOCYTES # (AUTO) 0.5 10^3/uL (1.0-4.0); LYMPHOCYTES % (AUTO) 4 % (12-44); MEAN CORPUSCULAR HEMOGLOBIN 29 pg (25-34); MEAN CORPUSCULAR HGB CONC 32 g/dL (32-36); MEAN CORPUSCULAR VOLUME 91 fL (80-99); MEAN PLATELET VOLUME 10.1 fL (9.0-12.2); MONOCYTES # (AUTO) 0.6 10^3/uL (0.0-1.0); MONOCYTES % (AUTO) 5 % (0-12); NEUTROPHILS # (AUTO) 12.4 10^3/uL (1.8-7.8); NEUTROPHILS % (AUTO) 90 % (42-75); PLATELET COUNT 522 10^3/uL (130-400); WHITE BLOOD COUNT 13.7 10^3/uL (4.3-11.0)
[2023-08-04] MEDS ORDERED: FUROSEMIDE INJECTION 40 MG/4 ML VIAL IVP ONE (14:30)
[2023-08-04 14:33] LABS: INR 0.9 (0.8-1.4)
--- NOTE | 2023-08-04 14:38 | Diagnostic Imaging Report ---
CLINICAL INDICATION: Patient shortness of air and dyspnea. EXAM: Portable chest x-ray upright view. COMPARISON: Chest x-ray dated there 08/19/2022. FINDINGS: Lungs/pleura: Stable calcified granuloma involving the right upper lobe region. Stable increased lung markings throughout both lungs. Otherwise, lungs are clear. There is no pneumothorax. There is no pleural effusion. Mediastinum: Unremarkable. Pulmonary vasculature: Unremarkable. Heart: Unremarkable. Bones/extrathoracic soft tissue: There degenerative spurs involving the thoracic and lumbar spine. There is left curvature of the lumbar spine.. IMPRESSION: Stable chest x-ray exam with no interval radiographic evidence of acute cardiopulmonary process. Dictated by: Dictated on workstation # [id number]
[2023-08-04 14:41] LABS: BUN/CREATININE RATIO 53; CALCIUM 10.3 MG/DL (8.5-10.1); CARBON DIOXIDE 30 MMOL/L (21-32); CHLORIDE 96 MMOL/L (98-107); CREATININE SERUM 0.45 MG/DL (0.60-1.30); GFR ESTIMATED 98; GLUCOSE 220 MG/DL (70-105); POTASSIUM 4.2 MMOL/L (3.6-5.0); SODIUM 139 MMOL/L (135-145)
[2023-08-04 14:42] LABS: ALANINE AMINOTRANSFERASE 27 U/L (0-55); ALBUMIN 4.7 GM/DL (3.2-4.5); ALKALINE PHOSPHATASE 137 U/L (40-136); BILIRUBIN,TOTAL < 0.2 MG/DL (0.1-1.0); LIPASE 82 U/L (8-78); TOTAL PROTEIN 7.6 GM/DL (6.4-8.2)
[2023-08-04 14:45] LABS: LYMPHOCYTES % (MANUAL) 5 %; MONOCYTES % (MANUAL) 6 %; NEUTROPHILS % (MANUAL) 89 %
[2023-08-04 15:15] VITALS: BP 144/89
[2023-08-04] MEDS ORDERED: CEFD300C3 PO (15:16)
== END 2023-08-04 15:18 | disposition home or self-care (01) ==
LOC: EDUNIT# 13:56 → ER FS 13:58
DX: J44.9 Chronic obstructive pulmonary disease, unspecified (principal); J96.11 Chronic respiratory failure with hypoxia; D72.829 Elevated white blood cell count, unspecified; I48.0 Paroxysmal atrial fibrillation; Z79.01 Long term (current) use of anticoagulants; Z99.81 Dependence on supplemental oxygen; Z20.822 Contact with and (suspected) exposure to COVID-19
CPT/HCPCS: 36415; 71045; 80053; 83605; 83690; 83735; 83880; 84484; 85007; 85027; 85610; 85730; 87636; 93005; 93041; 94640